=== PATIENT | female | born 1940 | race Caucasian/White ===

== ENCOUNTER 2016-11-06 18:48 | Inpatient (IN) | payer MEDICARE ==
[~2016-11-06] VITALS: Ht 170.2 cm; Wt 67.2 kg
[~2016-11-06 18:48] MED LIST: AMOXIL500 MG PO; ATORVASTATIN CA10 MG PO; BENZONATATE200 MG PO; CEFDINIR300 M1 PO; DIOVAN HCT 1601 EACH PO; DOXYCYCLINE HY100 MG PO; HOMATROPINE PO; HYD PO; IBU-8800 MG PO; LEVOTHYROXINE0.05 M2 PO; TYLENOL WITH CO1 TA1 PO
[2016-11-06 18:56] VITALS: BP 155/89
[2016-11-06] MEDS ORDERED: PROCHLORPERAZIN10 MG PO (19:11)
[2016-11-06] MEDS ORDERED: AMOXICILLIN AND1 TA2 PO (19:11)
[2016-11-06] MEDS ORDERED: PREDNISONE 20MG20 MG PO (19:12)
[2016-11-06] MEDS ORDERED: FAMOTIDINE 20MG20 MG PO (19:12)
[2016-11-06] MEDS ORDERED: ATORVASTATIN CA10 M1 PO (19:13)
[2016-11-06] MEDS ORDERED: MORPHINE SULFAT15 M3 PO (19:14)
[2016-11-06] MEDS ORDERED: PAROXETINE HCL20 MG PO (19:15)
[2016-11-06] MEDS ORDERED: LOPRESSOR 25MG.25 MG PO (19:16)
[2016-11-06 19:34] LABS: LYMPH # 0.9 K/mm3 (0.7-4.5); LYMPH % 6.9 % (10-50.0)
--- NOTE | 2016-11-06 19:36 | Emergency Room Report ---
History of Present Illness Time Seen by 1850 Presenting Problem in Triage Pt arrived:Wheelchair Presenting Problem:C/O COUGHING AND SHORTNESS OF BREATH, REPORTS CHILLS SINCE LAST NIGHT. 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 DISCHARGED APPROX 2 WEEKS GOT ON MORPHINE. Onset of symptoms date/time:11/05/16/ or onset unknown for:MEDICAL HX UNKNOWN Treatment Prior to Arrival: UNDER TREATMENT WITH TRAV PHOTOGRAPHIC SPECIALIST Provided by: PHYSICIAN Sepsis Risk Assessment: Temp: 98.5 B/P: 155/89 MAP: 111 Pulse: 106 Resp: 28 Recent fever? N Clinical Suspician of Infection? N Mental Status: 1 - Regular (Normal Baseline) Sepsis Risk:Possible Sepsis Risk Have you (or family members/close friends) recently traveled outside the [place]? N If Yes, where/when: Have you had exposure to infectious disease within the past month? N TB? Other? Specify: Comment History obtained from patient, granddaughter, and niece. Patient has a nonproductive cough and shortness of breath since yesterday evening. She has felt hot and cold, but temperature taken at home was between 97 and 98. She has had wheezing. She has used albuterol nebulizers and inhalers at home without much improvement. She has some swelling of legs intermittently, not as bad today as typically. She has some bilateral back pain when she coughs. She has a history of B cell lymphoma, recently diagnosed. She has had radiation treatment and is getting chemotherapy. She has a PICC line in place. She is seen at the [facility]. Dr. Tejeda is her primary care doctor. Home Medications Reported Medications HYDROCODONE W/ HOMATROPINE (Hydrocod-Homatrop 5-1.5 MG Tab) 1 TAB PO Q4HP PRN COUGH #45 Benzonatate 100 MG PO TID #30 Levothyroxine Sodium 0.05 MG PO DAILY #90 Valsartan/Hydrochlorothiazide (Diovan Hct 160-12.5 MG Tab) 1 EACH PO DAILY ATORVASTATIN CALCIUM (ATORVASTATIN 10MG) 10 MG PO QHS AMOXICILLIN/POTASSIUM CLAV (Amox Tr-K Clv 875-125 MG Tab) 1 TAB PO BID #14 Prochlorperazine Maleate 5 MG PO QID #120 Prednisone (Prednisone 20MG) 20 MG PO BID #20 Famotidine (Famotidine 20MG) 20 MG PO BID #60 Atorvastatin Calcium 10 MG PO DAILY #30 MORPHINE SULFATE SR/ER (Morphine Sulfate ER) 15 MG PO BID #20 PAROXETINE HCL (Paroxetine Hcl) 20 MG NG DAILY #30 Metoprolol Tartrate (Lopressor) 12.5 MG PO BID #30 (Ren Arauz MD) ALLERGIES Coded Allergies: alprazolam (From XANAX) (Intermediate, ADVERSE 11/06/16) tetanus and diphtheria toxoids (Mild, 08/17/16) Iodinated Contrast Media - Oral and (08/25/16) (Nora Villanueva MD) History Medical History General CAD? No Angina: No [place]: No Hypertension? Yes Hyperlipidemia? Yes CHF? No DVT? No PE? No COPD? No Asthma? No Anemia? No GERD? No Gastric ulcers? No GI Bleed? No Hernia? No Thyroid Problems? Yes Hypothyroidism? Yes CVA? No Seizures? No Diabetes? No Renal Insuffiency? No End Stage Renal Disease? No UTI? No Stones? No GB Disease: No Nephritic Syndrome? No Asplenia? No Hepatitis? No Sickle Cell Disease? No Arthritis? No Migraines? No Cataracts? No Glaucoma? No MRSA? No HIV? No TB? No Anxiety? No Depression? No Cancer? Yes Site: UTERINE, LYMPHOMA More? No Immunization Hx DT/Tetanus NEVER Surgical Hx Previous Surgery?Y Hysterect Breast bx BONE SPURS FROM NECK PICC LINE Social History Smoking Hx Smoker: Former Smoker Tobacco: Yes Type Cigarettes Alcohol Alcohol: No (Ren Arauz MD) Social History Drugs none (Nora Villanueva MD) Review of Systems All Other Systems Reviewed and Negative Constitutional chills (hot and cold feeling) ENT nose discharge, throat pain. Respiratory cough, shortness of breath, wheezing Cardiovascular chest pain (bilat back pain with cough) Gastrointestinal denies abdominal pain, denies diarrhea, denies nausea, denies vomiting Genitourinary denies: dysuria. (Ren Arauz MD) Physical Exam Vital Signs Vital Signs Date Time Temp Pulse Resp B/P Pulse O2 O2 Flow FiO2 Ox Delivery Rate 11/06 2048 100 22 147/86 97 2 11/06 2040 22 11/06 1945 100 28 149/89 97 2 05/30 1856 98.5 106 28 155/89 93 General Appearance appears chronically ill Eye Exam - bilateral eye normal exam, bilateral eye PERRL, bilateral eye EOMI Ear, Nose, Throat weak voice Neck normal inspection, non-tender, supple, full range of motion Respiratory Status Yes: trachea midline, chest symmetrical, non productive cough. No: respiratory distress. Lung Sounds bilateral: rhonchi. Cardiovascular normal exam, regular rate/rhythm, no peripheral edema, no gallop, no JVD, no murmur, no rub, normal peripheral pulses Peripheral Pulses Pulses normal Yes Gastrointestinal normal bowel sounds, normal exam, non tender, soft, no organomegaly Extremities non-tender, normal range of motion, normal inspection, swelling (1+ pitting edema bilateral) Neurologic alert, normal exam, oriented x 3 Mental status normal mood/affect Skin intact, warm/dry, pallor (Davonte COOMBS, Ren) Medical Decision Making LABS/Meds/Orders Pt receiving controlled substance in ED? No Results/Orders Laboratory Tests 11/06/161919: Lactic Acid 2.4 H 11/06/161919: Sodium 136, Potassium 3.4 L, Chloride 101, Carbon Dioxide 28, BUN 13, Creatinine 0.8, Estimated Creat Clear 55, Estimated GFR (MDRD) 69, Glucose 122 H, Calcium 8.2 L, Total Bilirubin 0.7, AST 16, ALT 24, Alkaline Phosphatase 118 H, Total Protein 5.1 L, Albumin 2.5 L, Globulin 2.6, Albumin/Globulin Ratio 1.0 L, WBC 12.9 H, RBC 3.02 L, Hgb 9.4 L, Hct 28.1 L, MCV 92.9, RDW 19.4 H , Plt Count 195, MPV 5.9 L, Gran % 92.3 H, Gran # 12.0 H, Total Counted 100, Lymphocytes % 6.9 L, Monocytes % 0.7 L, Eosinophils % 0.1, Basophils % 0.1, Neutrophils 90 H, Lymphocytes (Manual) 9 L, Lymphocytes # 0.9, Monocytes ( Manual) 1 L, Monocytes # 0.1, Eosinophils # 0.0, Basophils # 0.0, Hypersegmented Polys 1+, Platelet Estimate NORMAL, Hypochromasia 3+, Poikilocytosis 2+, Anisocytosis 2+, PUBS MCHC 33.1, MCH 30.8 Current Medication Orders Sig/Alisia Start time Last Medication Dose Route Stop Time Status Admin Sodium Chloride 250 ML .STK-MED ONE 11/06 2053 DC IV Azithromycin 0 .STK-MED ONE 11/06 2052 DC IV Sodium Chloride 50 ML .STK-MED ONE 11/06 2052 DC IV Ceftriaxone Sodium 0 .STK-MED ONE 11/07 2051 DC .ROUTE Azithromycin 500 MG ONCE ONE 11/06 2044 AC 11/06 Sodium Chloride 250 ML IV 11/06 Ceftriaxone Sodium 1 GM ONCE ONE 11/06 2044 DC 11/06 Sodium Chloride 50 ML IV 11/06 Morphine Sulfate 4 MG ONCE ONE 11/06 2044 DC 11/06 IV 11/06 Ondansetron HCl 4 MG ONCE ONE 11/06 2044 DC 11/06 IV 11/06 Morphine Sulfate 0 .STK-MED ONE 11/06 2040 DC .ROUTE Ondansetron HCl 0 .STK-MED ONE 11/06 2040 DC .ROUTE Albuterol/Ipratropium 0 .STK-MED ONE 11/06 1937 DC INH Albuterol/Ipratropium 3 ML ONCE ONE 11/06 1929 DC 11/06 INH 11/06 Sodium Chloride 10 ML PRN PRN 11/06 1929 AC IV 11/07 1916 Orders Procedure Date/time Status Decision to admit 11/06 2046 Active LACTIC ACID FOLLOW UP 11/06 1946 Active RT Aerosol Treatment, Provide 11/06 1929 Active RT REQUEST DUONEB 11/06 1928 Active DIFFERENTIAL-WBC 11/07 1919 Complete OXYGEN REQUEST 11/06 1917 Active IV SALINE LOCK 11/06 1917 Active CULTURE, BLOOD 11/06 1917 Active LACTIC ACID 11/06 1917 Complete CBC WITH AUTO DIFF 11/06 1917 Complete CHEM 12 PROFILE 11/06 1917 Complete Progress - 8:00 PM: At shift change, I have discussed the patient with Dr. Villanueva, who will assume care of the patient at this time. I have discussed all clinical information including history, physical and diagnostic study results. Preliminary diagnoses based on information available at this point have been recorded by me. Controlled substance administration and critical care statement are also preliminary, as of the time of handoff. (Davonte COOMBS, Ren) Departure Departure Disposition Still a Patient Clinical Impression Primary Impression: Pneumonia Qualifiers: Pneumonia type: due to unspecified organism Laterality: left Lung location: unspecified part of lung Qualified Code: J18.9 - Pneumonia, unspecified organism Condition STABLE ED Critical Care Critical Care No (Ren Arauz MD) Departure Time of Disposition 2041 Referrals Boaz Tejeda MD (Family) discussed with dr banda (Nora Villanueva MD) at 2012 at 2135
[2016-11-06 19:39] LABS: HEMOGLOBIN 9.4 g/dL (12.2-16.2)
[2016-11-06 20:20] LABS: NEUTROPHILS 90 % (42-76)
--- NOTE | 2016-11-06 21:09 | RADIOLOGY REPORT PS360 ---
CHEST(2 VIEWS-NOT PORTABLE) HISTORY: C/O SHORTNESS OF BREATH ORDERING PHYSICIAN: Ren Arauz MD PATIENT AGE: 76 years COMPARISON: 08/21/2016 FINDINGS: There is normal heart size. Patient has a known mediastinal mass. Stents are present within the mainstem bronchi. A sternotomy is prominent. Opacification is present involving the left perihilar region consistent with underlying lung volume loss. There are small bilateral pleural effusions. There is thickening of the major fissure seen on the lateral view probably on the left. Right upper extremity PICC line is present with the tip in region of SVC. IMPRESSION: 1. Persistent widening of the mediastinum and prominence of the marquis consistent with mediastinal/hilar mass. 2. New consolidation/volume loss in the left perihilar region. 3. Small bilateral effusions
--- NOTE | 2016-11-06 21:59 | PHARMACY CLINIC NOTE ---
Patient Demographics Patient Demographics Admission date: 11/06/16 Date: 11/06/16 Time: 2158 Allergies Coded Allergies: alprazolam (From XANAX) (Intermediate, ADVERSE 11/06/16) tetanus and diphtheria toxoids (Mild, 08/17/16) Iodinated Contrast Media - Oral and (08/25/16) HEIGHT- FT: 5 IN: 7.00 K.328 VTE General Information Labs: Laboratory Tests 11/07 1919 Hematology Hgb (12.2 - 16.2 g/dL) 9.4 L Hct (37.0 - 47.0 %) 28.1 L Plt Count (142 - 424 K/mm3) 195 Disclaimer The following section includes nursing documentation that has been pulled in for pharmacy review. VTE prophylaxis NQF [id number] VTE prophylaxis ordered? Yes Type of prophylaxis/treatment: LORRI at 4807
[2016-11-06 22:30] VITALS: BP 166/77
[2016-11-06 22:40] VITALS: BP 154/70
[2016-11-06] MEDS ORDERED: DOCUSATE SODIU100 MG PO (23:03)
[2016-11-06] MEDS ORDERED: MAG-OX 400MG T400 MG PO (23:05)
[2016-11-06] MEDS ORDERED: [UNRECOGNIZED DRUG - OTHER] (23:08)
[2016-11-06 23:41] VITALS: BP 142/56
[2016-11-07] VITALS (8 sets, daily range): BP systolic 145–182; BP diastolic 62–78
[2016-11-07 06:33] LABS: LYMPH # 0.5 K/mm3 (0.7-4.5); LYMPH % 7.6 % (10-50.0)
[2016-11-07 06:41] LABS: HEMOGLOBIN 7.9 g/dL (12.2-16.2)
[2016-11-07] MEDS ORDERED: FAMOTIDINE 20MG20 MG PO ×2 (08:10→09:35)
[2016-11-07] MEDS ORDERED: IPRATROPIUM BROM3 M1 IH (08:45)
[2016-11-07] MEDS ORDERED: VENTOLIN H0.09 MG/AC IH (09:09)
[2016-11-07] MEDS ORDERED: ONDANSETRON HYDR8 M1 PO (09:11)
[2016-11-07] MEDS ORDERED: VALSARTAN AND H1 TA1 PO (09:20)
[2016-11-07] MEDS ORDERED: LIDOCAINE 2% V100 M2 PO (09:22)
[2016-11-07] MEDS ORDERED: MELATIN1 TAB PO (09:24)
[2016-11-07] MEDS ORDERED: NEUPOGEN300 MCG/01 IJ (09:25)
[2016-11-07] MEDS ORDERED: MORPHINE SULFAT15 M2 PO (09:25)
[2016-11-07] MEDS ORDERED: MIRALAX(PO17 GM/1 PA PO (09:26)
[2016-11-07] MEDS ORDERED: PANTOPRAZOLE SO40 MG PO (09:26)
[2016-11-07] MEDS ORDERED: THERAPEUTIC-M1 EAC1 PO (09:27)
--- NOTE | 2016-11-07 09:31 | HISTORY AND PHYSICAL REPORT ---
History and Physical ([facility]CA) Date of admission: 11/06/16 Chief complaint: cough History: History of Present Illness: Ms Gutierrez is a 76 year old female with a history of mediastinal diffuse large B cell lymphoma , HTN, hypothyroidism and previous HCAP who did well after her chemo lst week untill Saturday PM when she began coughing. She continue with a mostly nonproductive cough all day yesterday with SOB. She also experienced chills and diaphoresis. She presented to the ER for evaluation. She was felt to have a pneumonia and was admitted. This AM she continues to cough. The current meds have not helped very much. She has no appetite and has to sit up to breath and cough. She has bilateral shoulder pain. she denies CP. Past Medical History: Medical History: CAD? No Angina: No [place]: No Hypertension? Yes Hyperlipidemia? Yes CHF? No DVT? Yes PE? No COPD? No Asthma? No Anemia? No GERD? No Gastric ulcers? No GI Bleed? No Hernia? No Thyroid Problems? Yes Hypothyroidism? Yes CVA? No Seizures? No Diabetes? No Renal Insuffiency? No UTI? No Stones? No GB Disease: No Nephritic Syndrome? No Asplenia? No Hepatitis? No Sickle Cell Disease? No Arthritis? No Migraines? No Cataracts? No Glaucoma? No MRSA? No HIV? No TB? No Anxiety? Yes Depression? No Cancer? Yes Site: UTERINE, LYMPHOMA More? No Surgical history: Previous Surgery?Y Hysterect Breast bx BONE SPURS FROM NECK PICC LINE Medications: Reported Medications Benzonatate 100 MG PO TID #30 CAPSULE ONDANSETRON HCL (Ondansetron Hydrochloride) 4 MG PO Q8HP #42 TAB POLYETHYLENE GLYCOL (Miralax) 17 GM PO DAILY Multivits,Ca,Minerals/Iron/FA (Therapeutic-M Caplet) 1 EACH PO DAILY MORPHINE SULF IMMED.RELEASE (Morphine Sulfate) 15 MG PO Q4HP PRN pain Filgrastim (Neupogen) 300 MCG IJ QOD PAROXETINE HCL (Paroxetine Hcl) 20 MG PO DAILY #30 TAB Prochlorperazine Maleate 10 MG PO Q6HP PRN NAUSEA/VOMITING Docusate Sodium 100 MG PO BID ALBUTEROL-IPRATROPIUM (Iprat-Albut 0.5-3(2.5) MG/3 Ml) 3 ML IH Q4HP PRN SHORTNESS OF AIR #540 ALBUTEROL (Ventolin Hfa) 2 PUFF IH QID VALSARTAN/HYDROCHLOROTHIAZIDE (Valsartan-Hctz 160-12.5 MG Tab) 1 TAB PO DAILY Lidocaine HCl (Lidocaine 2% Viscous; 100ML) 5 ML PO QIDP PRN MUCOSITIS MELATONIN (Melatin) 3 MG PO QHSP PRN SLEEP Pantoprazole Sodium (Pantoprazole 40MG) 40 MG PO DAILY AMOXICILLIN/POTASSIUM CLAV (Amox Tr-K Clv 875-125 MG Tab) 1 TAB PO BID #14 TAB Acetaminophen 325 MG PO Q6HP PRN PAIN DEXTROMETHORPHAN-GG (Guaifenesin Dm Syrup) 15 ML PO QIDP PRN COUGH Diphenhydramine HCl (Allergy Medicine) 15 ML PO QIDP PRN MUCOSITIS SODIUM CHLORIDE FOR INHALATION (Sodium Chloride) 3 ML IH Q2H Levothyroxine Sodium 0.05 MG PO DAILY #90 Atorvastatin Calcium 10 MG PO DAILY #30 MORPHINE SULFATE SR/ER (Morphine Sulfate ER) 15 MG PO BID #20 Metoprolol Tartrate (Lopressor) 12.5 MG PO BID #30 Allergies: Coded Allergies: alprazolam (From XANAX) (Intermediate, ADVERSE 11/06/16) tetanus and diphtheria toxoids (Mild, 08/17/16) Iodinated Contrast Media - Oral and (08/25/16) ibuprofen (STATED IT INTERACTS WITH CHEMO 11/07/16) acetaminophen (From TYLENOL) (INTERACT WITH CHEMO 11/07/16) Family History: Family history: Negative for: DM. Additional family history: father with COPD; brother had Alzheimer's Social History: Smoking Hx Tobacco: Yes Smoker: Former Smoker Type: Cigarettes Packs/day: N/A Are you exposed to second hand No Alcohol: Alcohol: No Hx of Drug Use: Drug Use? No Review of Systems: Constitutional Positive for: chills. ENT Positive for: ear ache. No: sore throat. Cardiovascular No: chest pain, edema, palpitations. Respiratory Positive for: shortness of air, non-productive. GI Positive for: constipation, nausea. No: GERD, abdominal pain, diarrhea, hematemeis, melena, vomitting. (female) No: hematuria. Neurological No: confusion, headache, seizure, syncope. Musculoskeletal Positive for: joint pain (SHOULDERS). Physical Exam: Vital signs: 1ST Vital Signs Result Date Time Pulse Ox 93 11/07 1855 B/P 155/89 11/07 1855 Temp 98.5 11/07 1855 Pulse 106 11/07 1855 Resp 28 11/07 1855 O2 Flow Rate 2 11/06 1945 O2 Delivery OXYGEN 11/06 2229 Exam: General appearance: alert, APPEARS NOT TO FEEL WELL Eyes: anicteric, pupils reactive to light ENT: mucous membranes moist, tympanic membranes normal Neck: no carotid bruit, supple, lymphadenopathy (absent), thyroid (normal) Cardiovascular: regular rate & rhythm Respiratory: CRACKLES ON THE LEFT ABD: non-distended, soft, no tenderness, bowel sounds present Extremities: no peripheral edema Neuro: alert, oriented, speech clear Lab data: Labs: Laboratory Tests 11/07/16 0950: Sodium 138, Potassium 3.1 L, Chloride 106, Carbon Dioxide 28, BUN 8, Creatinine 0.6, Estimated Creat Clear 84, Estimated GFR (MDRD) 97, Glucose 86, Calcium 7.1 L, WBC 6.7, RBC 2.51 L, Hgb 7.9 *L, Hct 23.9 *L, MCV 95.3, RDW 19.3 H, Plt Count 135 L, MPV 5.9 L, Gran % 90.7 H, Gran # 6.1, Lymphocytes % 7.6 L, Monocytes % 1.1 L, Eosinophils % 0.2, Basophils % 0.5, Lymphocytes # 0.5 L, Monocytes # 0.1, Eosinophils # 0.0, Basophils # 0.0, PUBS MCHC 33.2, MCH 31.6 H 11/06/16 2330: Lactic Acid 0.5 11/06/161919: Lactic Acid 2.4 H 11/06/161919: Sodium 136, Potassium 3.4 L, Chloride 101, Carbon Dioxide 28, BUN 13, Creatinine 0.8, Estimated Creat Clear 55, Estimated GFR (MDRD) 69, Glucose 122 H, Calcium 8.2 L, Total Bilirubin 0.7, AST 16, ALT 24, Alkaline Phosphatase 118 H, Total Protein 5.1 L, Albumin 2.5 L, Globulin 2.6, Albumin/Globulin Ratio 1.0 L, WBC 12.9 H, RBC 3.02 L, Hgb 9.4 L, Hct 28.1 L, MCV 92.9, RDW 19.4 H , Plt Count 195, MPV 5.9 L, Gran % 92.3 H, Gran # 12.0 H, Total Counted 100, Lymphocytes % 6.9 L, Monocytes % 0.7 L, Eosinophils % 0.1, Basophils % 0.1, Neutrophils 90 H, Lymphocytes (Manual) 9 L, Lymphocytes # 0.9, Monocytes ( Manual) 1 L, Monocytes # 0.1, Eosinophils # 0.0, Basophils # 0.0, Hypersegmented Polys 1+, Platelet Estimate NORMAL, Hypochromasia 3+, Poikilocytosis 2+, Anisocytosis 2+, PUBS MCHC 33.1, MCH 30.8 Microbiology 11/07 1919 BLOOD: Anaerobic Blood Culture - RECD 11/07 1919 BLOOD: Aerobic Blood Culture - RECD 11/07 1919 BLOOD: Anaerobic Blood Culture - RECD 11/07 1919 BLOOD: Aerobic Blood Culture - RECD Radiology results: Results: CXR 11/06/16 IMPRESSION: 1. Persistent widening of the mediastinum and prominence of the marquis consistent with mediastinal/hilar mass. 2. New consolidation/volume loss in the left perihilar region. 3. Small bilateral effusions Diagnosis(es): 1. Pneumonia 2. Large B-cell lymphoma 3. Hypothyroidism 4. HTN (hypertension) Plan: ABX; DUONEBS; COUGH AND PAIN MANAGEMENT; MEDS VERIFIED BY PHARMACY (Elvira Pinon APRN) Date of admission: 11/06/16 Diagnosis(es): 1. Pneumonia 2. Large B-cell lymphoma 3. Hypothyroidism 4. HTN (hypertension) Plan: Pt seen and examined this AM. Concur with assessment and plan as outlined above. (Jam Izquierdo MD) at 1311 at 2042
[2016-11-07] MEDS ORDERED: AMOXICILLIN AND1 TA2 PO (09:34)
[2016-11-07] MEDS ORDERED: ACETAMINOPHEN325 M1 PO (09:53)
[2016-11-07] MEDS ORDERED: ROBITUSSIN DM 105 ML PO (09:58)
[2016-11-07] MEDS ORDERED: ALLERGY ME12.5 MG/5 PO (09:59)
[2016-11-07] MEDS ORDERED: MELATONIN3 MG PO (10:02)
[2016-11-07] MEDS ORDERED: SODIUM CHLORIDE3 ML IH (10:12)
[2016-11-07 14:49] LABS: HEMOGLOBIN 8.4 g/dL (12.2-16.2); LYMPH # 0.4 K/mm3 (0.7-4.5); LYMPH % 6.9 % (10-50.0)
[2016-11-08 03:52] VITALS: BP 155/72
[2016-11-08 08:09] VITALS: BP 142/76
--- NOTE | 2016-11-08 08:15 | ACUTE CARE PROGRESS NOTE (QUA) ---
See Addendum Progress Notes Subjective Date 11/08/16 Time 0813 Note Pt states she still feels awful. Still coughing with only minimal sputum production. Still wheezing and SOA. Has some pain in her back. Not hungry this am. Objective Findings Last VS-Temp:97.7 B/P:142/76 Pulse:93 Resp:20 SaO2:99 OXYGEN Last weight lbs:151 oz:2 K.550 Method:Bed Scales Laboratory Tests 11/07/16 0950: WBC 5.6, RBC 2.70 L, Hgb 8.4 L, Hct 25.6 L, MCV 95.1, RDW 19.4 H, Plt Count 136 L, MPV 6.3 L, Gran % 91.6 H, Gran # 5.2, Lymphocytes % 6.9 L, Monocytes % 0.7 L, Eosinophils % 0.3, Basophils % 0.5, Lymphocytes # 0.4 L, Monocytes # 0.0 L, Eosinophils # 0.0, Basophils # 0.0, PUBS MCHC 32.9, MCH 31.3 H 11/07/16 0950: Sodium 138, Potassium 3.1 L, Chloride 106, Carbon Dioxide 28, BUN 8, Creatinine 0.6, Estimated Creat Clear 84, Estimated GFR (MDRD) 97, Glucose 86, Calcium 7.1 L, WBC 6.7, RBC 2.51 L, Hgb 7.9 *L, Hct 23.9 *L, MCV 95.3, RDW 19.3 H, Plt Count 135 L, MPV 5.9 L, Gran % 90.7 H, Gran # 6.1, Lymphocytes % 7.6 L, Monocytes % 1.1 L, Eosinophils % 0.2, Basophils % 0.5, Lymphocytes # 0.5 L, Monocytes # 0.1, Eosinophils # 0.0, Basophils # 0.0, PUBS MCHC 33.2, MCH 31.6 H Microbiology 11/07 1204 SPUTUM: Sputum Culture - RES 11/07 1204 SPUTUM: Gram Stain - RES Exam General appearance: alert, awake, does not appear to feel well Cardiovascular: regular rate & rhythm Respiratory: bilateral rhonchi, bibasilar rales ABD: non-distended, normal bowel sounds, no rebound, soft, no tenderness, no guarding Extremities: no peripheral edema Assessment/Plan Problem List 1. Pneumonia 2. Large B-cell lymphoma 3. Hypothyroidism 4. HTN (hypertension) Plan: Awaiting labs and sputum cx. Will get another CXR today. This inpt stay is expected to cross 2 MNs from start of care Yes (Fariha Yoo) Subjective Date 11/08/16 Time 0858 Assessment/Plan Problem List 1. Pneumonia 2. Large B-cell lymphoma 3. Hypothyroidism 4. HTN (hypertension) Plan: Cough is a littel better. Still very weak and has no appetite. Awaiting AM labs and will repeat CXR today. Encouraged her to be OOB. (Jam Izquierdo MD) at 0815 at 0859
[2016-11-08 10:00] VITALS: BP 142/76
[2016-11-08 10:48] LABS: LYMPH # 0.2 K/mm3 (0.7-4.5); LYMPH % 40.6 % (10-50.0)
[2016-11-08 11:59] LABS: HEMOGLOBIN 7.9 g/dL (12.2-16.2)
--- NOTE | 2016-11-08 15:38 | RADIOLOGY REPORT PS360 ---
CHEST-PORTABLE HISTORY: Shortness of breath, labored breathing f/u pneumonia ORDERING PHYSICIAN: Jam Izquierdo MD PATIENT AGE: 76 years COMPARISON: 11/06/2016 FINDINGS: Continued opacification is present in the left perihilar region consistent with volume loss/consolidation within the lingula is slightly more dense on today's exam. Right upper extremity PICC line once again noted unchanged. Bilateral mainstem bronchi stents are present as before. Patient has an had a known mediastinal mass. Bone plate noted over the lower cervical spine. IMPRESSION: Slight increased consolidation/volume loss in left perihilar region with other findings as described above
[2016-11-08 16:29] LABS: NEUTROPHILS 43 % (42-76)
[2016-11-08 16:30] VITALS: BP 137/70
[2016-11-08 19:33] VITALS: BP 124/58
[2016-11-09] VITALS (8 sets, daily range): BP systolic 115–139; BP diastolic 58–72
[2016-11-09 07:39] LABS: LYMPH # 0.3 K/mm3 (0.7-4.5); LYMPH % 60.9 % (10-50.0)
[2016-11-09 07:42] LABS: HEMOGLOBIN 7.7 g/dL (12.2-16.2)
--- NOTE | 2016-11-09 08:14 | ACUTE CARE PROGRESS NOTE (QUA) ---
Progress Notes Subjective Date 11/09/16 Time 0809 Note Patient states she feels about the same today. She is still coughing and short of breath. Her pain in her chest has improved. She was able to get up and sit in a chair some yesterday. Objective Findings Last VS-Temp:98.1 B/P:119/62 Pulse:93 Resp:20 SaO2:96 OXYGEN Last weight lbs:151 oz:2 K.550 Method:Bed Scales Laboratory Tests 11/09/16 0720: Sodium 133 L, Potassium 3.3 L, Chloride 98, Carbon Dioxide 32, BUN 7, Creatinine 0.8, Estimated Creat Clear 63, Estimated GFR (MDRD) 69, Glucose 114 H, Calcium 7.8 L, WBC 0.5 *L, RBC 2.45 L, Hgb 7.7 *L, Hct 23.1 *L, MCV 94.2, RDW 18.5 H, Plt Count 84 L, MPV 6.5 L, Gran % 26.6 L, Gran # 0.1 *L, Lymphocytes % 60.9 H, Monocytes % 8.1, Eosinophils % 2.0, Basophils % 2.5 H, Lymphocytes # 0.3 L, Monocytes # 0.0 L, Eosinophils # 0.0, Basophils # 0.0, PUBS MCHC 33.4, MCH 31.5 H, Gentamicin Trough 1.7 11/09/16 0009: Gentamicin Trough 4.7 *H 11/08/16 2202: Creatine Kinase 16 L, CK-MB (CK-2) Rel Index 5.0 H, CK and CKMB Interp 0.8, Troponin I < 0.02 11/08/16 1020: Sodium 132 L, Potassium 3.3 L, Chloride 99, Carbon Dioxide 30, BUN 8, Creatinine 0.6, Estimated Creat Clear 84, Estimated GFR (MDRD) 97, Glucose 125 H, Calcium 8.0 L, WBC 0.5 *L, RBC 2.59 L, Hgb 7.9 *L, Hct 24.6 L, MCV 94.8, RDW 18.8 H, Plt Count 103 L, MPV 6.3 L, Gran % 52.4, Gran # 0.3 *L, Total Counted 40, Lymphocytes % 40.6, Monocytes % 3.2, Eosinophils % 2.3, Basophils % 1.6, Neutrophils 43, Lymphocytes (Manual) 45, Lymphocytes # 0.2 L, Monocytes ( Manual) 10 H, Monocytes # 0.0 L, Eosinophils # 0.0, Eosinophils # (Manual) 3, Basophils # 0.0, Platelet Estimate MOD INCREASE, Anisocytosis 1+, PUBS MCHC 32.4 , MCH 30.7 CXR - Slight increased consolidation/volume loss in left perihilar region with other findings as described above Exam General appearance: alert, awake, does not appear to feel well Cardiovascular: regular rate & rhythm Respiratory: inspiratory and expiratory wheezing and rhonchi bilaterally ABD: non-distended, normal bowel sounds, no rebound, soft, no tenderness, no guarding Extremities: no peripheral edema Assessment/Plan Problem List 1. Pneumonia 2. Large B-cell lymphoma 3. Hypothyroidism 4. HTN (hypertension) 5. Hypokalemia 6. Constipation Plan: Patient's pneumonia appeared worse on recent CXR. ABX changes were made. Her WBC is low, therefore she has been placed in reverse isolation. Her potassium is still low, will increase replacement dose. She is constipated today. Will start on a stool softner. This inpt stay is expected to cross 2 MNs from start of care Yes (Fariha Yoo) Subjective Date 11/09/16 Assessment/Plan Problem List 1. Pneumonia 2. Chemotherapy induced neutropenia 3. Large B-cell lymphoma 4. Hypothyroidism 5. HTN (hypertension) 6. Hypokalemia 7. Constipation Plan: Pt seen and examined. Appears weak and pale but answers questions appropriately. Rested some last night after a bout of chest pain. Enzymes and EKG were unremarkable. Mouth is sore which is limiting her diet some. Antibiotic regimen escalated due to neutropenia while awaiting cultures. (Jam Izquierdo MD) at 0813 at 1851
--- NOTE | 2016-11-09 08:58 | CONSULT NOTE ---
Pharmacokinetic Consult Date of consult: 11/09/16 Time of consult: 824 Referring provider: DR. SWANSON Reason for consult: VANCOMYCIN AND GENTAMICIN DOSING/LEVELS Allergies: Coded Allergies: alprazolam (From XANAX) (Intermediate, ADVERSE 11/06/16) tetanus and diphtheria toxoids (Mild, 08/17/16) Iodinated Contrast Media - Oral and (08/25/16) ibuprofen (STATED IT INTERACTS WITH CHEMO 11/07/16) acetaminophen (From TYLENOL) (INTERACT WITH CHEMO 11/07/16) Home Medications: Reported Medications Benzonatate 100 MG PO TID #30 CAPSULE ONDANSETRON HCL (Ondansetron Hydrochloride) 4 MG PO Q8HP #42 TAB POLYETHYLENE GLYCOL (Miralax) 17 GM PO DAILY Multivits,Ca,Minerals/Iron/FA (Therapeutic-M Caplet) 1 EACH PO DAILY MORPHINE SULF IMMED.RELEASE (Morphine Sulfate) 15 MG PO Q4HP PRN pain Filgrastim (Neupogen) 300 MCG IJ QOD PAROXETINE HCL (Paroxetine Hcl) 20 MG PO DAILY #30 TAB Prochlorperazine Maleate 10 MG PO Q6HP PRN NAUSEA/VOMITING Docusate Sodium 100 MG PO BID ALBUTEROL-IPRATROPIUM (Iprat-Albut 0.5-3(2.5) MG/3 Ml) 3 ML IH Q4HP PRN SHORTNESS OF AIR #540 ALBUTEROL (Ventolin Hfa) 2 PUFF IH QID VALSARTAN/HYDROCHLOROTHIAZIDE (Valsartan-Hctz 160-12.5 MG Tab) 1 TAB PO DAILY Lidocaine HCl (Lidocaine 2% Viscous; 100ML) 5 ML PO QIDP PRN MUCOSITIS MELATONIN (Melatin) 3 MG PO QHSP PRN SLEEP Pantoprazole Sodium (Pantoprazole 40MG) 40 MG PO DAILY AMOXICILLIN/POTASSIUM CLAV (Amox Tr-K Clv 875-125 MG Tab) 1 TAB PO BID #14 TAB Acetaminophen 325 MG PO Q6HP PRN PAIN DEXTROMETHORPHAN-GG (Guaifenesin Dm Syrup) 15 ML PO QIDP PRN COUGH Diphenhydramine HCl (Allergy Medicine) 15 ML PO QIDP PRN MUCOSITIS SODIUM CHLORIDE FOR INHALATION (Sodium Chloride) 3 ML IH Q2H Levothyroxine Sodium 0.05 MG PO DAILY #90 Atorvastatin Calcium 10 MG PO DAILY #30 MORPHINE SULFATE SR/ER (Morphine Sulfate ER) 15 MG PO BID #20 Metoprolol Tartrate (Lopressor) 12.5 MG PO BID #30 Height (feet): 5 Height (inches): 7.00 Medical History: CAD? No Angina: No [place]: No Hypertension? Yes Hyperlipidemia? Yes CHF? No DVT? Yes PE? No COPD? No Asthma? No Anemia? No GERD? No Gastric ulcers? No GI Bleed? No Hernia? No Thyroid Problems? Yes Hypothyroidism? Yes CVA? No Seizures? No Diabetes? No Renal Insuffiency? No UTI? No Stones? No GB Disease: No Nephritic Syndrome? No Asplenia? No Hepatitis? No Sickle Cell Disease? No Arthritis? No Migraines? No Cataracts? No Glaucoma? No MRSA? No HIV? No TB? No Anxiety? Yes Depression? No Cancer? Yes Site: UTERINE, LYMPHOMA More? No Labs: Laboratory Tests 11/09/16 0720: Sodium 133 L, Potassium 3.3 L, Chloride 98, Carbon Dioxide 32, BUN 7, Creatinine 0.8, Estimated Creat Clear 63, Estimated GFR (MDRD) 69, Glucose 114 H, Calcium 7.8 L, WBC 0.5 *L, RBC 2.45 L, Hgb 7.7 *L, Hct 23.1 *L, MCV 94.2, RDW 18.5 H, Plt Count 84 L, MPV 6.5 L, Gran % 26.6 L, Gran # 0.1 *L, Lymphocytes % 60.9 H, Monocytes % 8.1, Eosinophils % 2.0, Basophils % 2.5 H, Lymphocytes # 0.3 L, Monocytes # 0.0 L, Eosinophils # 0.0, Basophils # 0.0, PUBS MCHC 33.4, MCH 31.5 H, Gentamicin Trough 1.7 11/09/16 0009: Gentamicin Trough 4.7 *H 11/08/16 2202: Creatine Kinase 16 L, CK-MB (CK-2) Rel Index 5.0 H, CK and CKMB Interp 0.8, Troponin I < 0.02 11/08/16 1020: Sodium 132 L, Potassium 3.3 L, Chloride 99, Carbon Dioxide 30, BUN 8, Creatinine 0.6, Estimated Creat Clear 84, Estimated GFR (MDRD) 97, Glucose 125 H, Calcium 8.0 L, WBC 0.5 *L, RBC 2.59 L, Hgb 7.9 *L, Hct 24.6 L, MCV 94.8, RDW 18.8 H, Plt Count 103 L, MPV 6.3 L, Gran % 52.4, Gran # 0.3 *L, Total Counted 40, Lymphocytes % 40.6, Monocytes % 3.2, Eosinophils % 2.3, Basophils % 1.6, Neutrophils 43, Lymphocytes (Manual) 45, Lymphocytes # 0.2 L, Monocytes ( Manual) 10 H, Monocytes # 0.0 L, Eosinophils # 0.0, Eosinophils # (Manual) 3, Basophils # 0.0, Platelet Estimate MOD INCREASE, Anisocytosis 1+, PUBS MCHC 32.4 , MCH 30.7 Problem List: 1. Pneumonia Plan: BASED ON PATIENT FACTORS, RECOMMEND VANCOMYCIN 1250 MG IV Q24H AND GENTAMICIN 240 MG IV Q24H. GENTAMICIN LEVELS AFTER 1ST DOSE LAST NIGHT: 5-HOUR POST INFUSION: 4.7 MCG/ML CALCULATED PEAK: 9.03 MCG/ML 12-HOUR POST INFUSION: 1.7 MCG/ML CALCULATED TROUGH: 0.30 MCG/ML BASED ON LEVELS AND PATIENT FACTORS, RECOMMEND INCREASING DOSE TO GENTAMICIN 400 MG IV Q24H. PHARMACY WILL CONTINUE TO MONITOR DAILY AND ADJUST APPROPRIATE. at 0857
[2016-11-10] VITALS (8 sets, daily range): BP systolic 116–139; BP diastolic 58–73
--- NOTE | 2016-11-10 08:19 | ACUTE CARE PROGRESS NOTE (QUA) ---
Progress Notes Subjective Date 11/10/16 Time 0816 Note Pt states she feels about the same today. Able to cough up more sputum. Still with SOA. Very weak. Denies pain. Objective Findings Last VS-Temp:98.6 B/P:127/64 Pulse:95 Resp:16 SaO2:91 ROOM AIR Last weight lbs:151 oz:2 K.550 Method:Bed Scales Exam General appearance: awake, very weak and has a hard time answering questions Cardiovascular: regular rate & rhythm Respiratory: wheezing and rhonchi bilaterally ABD: non-distended, normal bowel sounds, no rebound, soft, no tenderness, no guarding Extremities: no peripheral edema Reviewed: Sputum cx - positive for pseudomonas Assessment/Plan Problem List 1. Pseudomonas pneumonia 2. Chemotherapy induced neutropenia 3. Large B-cell lymphoma 4. Hypothyroidism 5. HTN (hypertension) 6. Hypokalemia 7. Constipation Plan: Patient's abx have been switched to levaquin. Will continue to monitor. Awaiting labs this am. This inpt stay is expected to cross 2 MNs from start of care Yes (Fariha Yoo) Assessment/Plan Problem List 1. Pseudomonas pneumonia 2. Chemotherapy induced neutropenia 3. Large B-cell lymphoma 4. Hypothyroidism 5. HTN (hypertension) 6. Hypokalemia 7. Constipation Plan: Pt seen and examined. SHe seems to be more alert in the afternoons. Still not eating well. As noted above, sputum cx is growing psuedomonas and antibiotic regimen changed to double coverage with Levaquin and Tobramycin. Encouraged her to be OOB some. (Jam Izquierdo MD) at 0819 at 1223
[2016-11-10 08:53] LABS: LYMPH # 0.3 K/mm3 (0.7-4.5); LYMPH % 39.4 % (10-50.0)
[2016-11-10 09:16] LABS: HEMOGLOBIN 7.4 g/dL (12.2-16.2)
[2016-11-10 10:13] LABS: NEUTROPHILS 16 % (42-76)
--- NOTE | 2016-11-10 11:00 | CONSULT NOTE ---
Pharmacokinetic Consult Date of consult: 11/10/16 Time of consult: 4066 Referring provider: DR. SWANSON Reason for consult: TOBRAMYCIN DOSING Allergies: Coded Allergies: alprazolam (From XANAX) (Intermediate, ADVERSE 11/06/16) tetanus and diphtheria toxoids (Mild, 08/17/16) Iodinated Contrast Media - Oral and (08/25/16) ibuprofen (STATED IT INTERACTS WITH CHEMO 11/07/16) acetaminophen (From TYLENOL) (INTERACT WITH CHEMO 11/07/16) Home Medications: Reported Medications Benzonatate 100 MG PO TID #30 CAPSULE ONDANSETRON HCL (Ondansetron Hydrochloride) 4 MG PO Q8HP #42 TAB POLYETHYLENE GLYCOL (Miralax) 17 GM PO DAILY Multivits,Ca,Minerals/Iron/FA (Therapeutic-M Caplet) 1 EACH PO DAILY MORPHINE SULF IMMED.RELEASE (Morphine Sulfate) 15 MG PO Q4HP PRN pain Filgrastim (Neupogen) 300 MCG IJ QOD PAROXETINE HCL (Paroxetine Hcl) 20 MG PO DAILY #30 TAB Prochlorperazine Maleate 10 MG PO Q6HP PRN NAUSEA/VOMITING Docusate Sodium 100 MG PO BID ALBUTEROL-IPRATROPIUM (Iprat-Albut 0.5-3(2.5) MG/3 Ml) 3 ML IH Q4HP PRN SHORTNESS OF AIR #540 ALBUTEROL (Ventolin Hfa) 2 PUFF IH QID VALSARTAN/HYDROCHLOROTHIAZIDE (Valsartan-Hctz 160-12.5 MG Tab) 1 TAB PO DAILY Lidocaine HCl (Lidocaine 2% Viscous; 100ML) 5 ML PO QIDP PRN MUCOSITIS MELATONIN (Melatin) 3 MG PO QHSP PRN SLEEP Pantoprazole Sodium (Pantoprazole 40MG) 40 MG PO DAILY AMOXICILLIN/POTASSIUM CLAV (Amox Tr-K Clv 875-125 MG Tab) 1 TAB PO BID #14 TAB Acetaminophen 325 MG PO Q6HP PRN PAIN DEXTROMETHORPHAN-GG (Guaifenesin Dm Syrup) 15 ML PO QIDP PRN COUGH Diphenhydramine HCl (Allergy Medicine) 15 ML PO QIDP PRN MUCOSITIS SODIUM CHLORIDE FOR INHALATION (Sodium Chloride) 3 ML IH Q2H Levothyroxine Sodium 0.05 MG PO DAILY #90 Atorvastatin Calcium 10 MG PO DAILY #30 MORPHINE SULFATE SR/ER (Morphine Sulfate ER) 15 MG PO BID #20 Metoprolol Tartrate (Lopressor) 12.5 MG PO BID #30 Height (feet): 5 Height (inches): 7.00 Medical History: CAD? No Angina: No [place]: No Hypertension? Yes Hyperlipidemia? Yes CHF? No DVT? Yes PE? No COPD? No Asthma? No Anemia? No GERD? No Gastric ulcers? No GI Bleed? No Hernia? No Thyroid Problems? Yes Hypothyroidism? Yes CVA? No Seizures? No Diabetes? No Renal Insuffiency? No UTI? No Stones? No GB Disease: No Nephritic Syndrome? No Asplenia? No Hepatitis? No Sickle Cell Disease? No Arthritis? No Migraines? No Cataracts? No Glaucoma? No MRSA? No HIV? No TB? No Anxiety? Yes Depression? No Cancer? Yes Site: UTERINE, LYMPHOMA More? No Labs: Laboratory Tests 11/10/16 0832: WBC 0.7 *L, RBC 2.36 L, Hgb 7.4 *L, Hct 22.0 *L, MCV 93.0, RDW 18.3 H, Plt Count 66 L, MPV 6.9 L, Gran % 38.7, Gran # 0.3 *L, Total Counted 25, Lymphocytes % 39.4, Monocytes % 18.3 H, Eosinophils % 1.9, Basophils % 1.7, Neutrophils 16 L, Band Neutrophils 4, Lymphocytes (Manual) 56 H, Lymphocytes # 0.3 L, Monocytes (Manual) 20 H, Monocytes # 0.1, Eosinophils # 0.0, Eosinophils # (Manual) 4 H, Basophils # 0.0, Platelet Estimate MARKED DECREASE, PUBS MCHC 33.5, MCH 31.2 Problem List: 1. Pseudomonas pneumonia Plan: BASED ON PATIENT'S FACTORS, RECOMMEND STARTING WITH TOBRAMYCIN 420 MG Q24H STARTING AT 1900 TONIGHT. PATIENT HAS BEEN RECEIVING GENTAMICIN 400 MG Q24H DOSED AT 1900. WILL OBTAIN TROUGH LEVEL OF GENTAMICIN PRIOR TO TOBRAMYCIN DOSE. GENTAMICIN DOSE WAS GIVEN LAST NIGHT. PHARMACY WILL FOLLOW DAILY AND ADJUST APPROPRIATE. ADRYAN BAPTISTE PHARMD at [phone]
[2016-11-11] VITALS (9 sets, daily range): BP systolic 145–169; BP diastolic 70–87
[2016-11-11 06:19] LABS: LYMPH # 0.7 K/mm3 (0.7-4.5)
[2016-11-11 06:21] LABS: HEMOGLOBIN 7.6 g/dL (12.2-16.2)
--- NOTE | 2016-11-11 08:51 | ACUTE CARE PROGRESS NOTE (QUA) ---
Progress Notes Subjective Date 11/11/16 Time 0844 Note Having some increased anxiety. Recieved Vistaril at about 2100 last night and rested fairly well. Cough seems to have improved some. Still not eating well. States she has no appetite. Objective Findings Laboratory Tests 11/11/16 0600: Sodium 129 L, Potassium 3.3 L, Chloride 95 L, Carbon Dioxide 27, BUN 5 L, Creatinine 0.7, Estimated Creat Clear 70, Estimated GFR (MDRD) 81, Glucose 80, Calcium 8.4 L, WBC 2.0 L, RBC 2.52 L, Hgb 7.6 *L, Hct 23.3 *L, MCV 92.4, RDW 18.6 H, Plt Count 66 L, MPV 6.7 L, Gran % 50.0, Gran # 1.0 L, Lymphocytes % 35.0, Monocytes % 13.5 H, Eosinophils % 1.1, Basophils % 0.5, Lymphocytes # 0.7 , Monocytes # 0.3, Eosinophils # 0.0, Basophils # 0.0, PUBS MCHC 32.8, MCH 30.3 11/10/16 1840: Gentamicin Trough 2.6 *H Last VS-Temp:98.5 B/P:169/79 Pulse:99 Resp:16 SaO2:97 ROOM AIR Last weight lbs:148 oz:2 K.188 Method:Bed Scales Exam General appearance: drowsy this AM but answers questions appropriately. Voice is weak and hoarse. Eyes: anicteric Cardiovascular: regular rate & rhythm Respiratory: scattered rhonchi but much less today. No wheezes ABD: soft, no tenderness Assessment/Plan Problem List 1. Pseudomonas pneumonia 2. Chemotherapy induced neutropenia 3. Large B-cell lymphoma 4. Hypothyroidism 5. HTN (hypertension) 6. Hypokalemia 7. Constipation Plan: Lungs sound much better today. WBC increased to 2000. Appetite remains poor. Encouraged OOB. This inpt stay is expected to cross 2 MNs from start of care Yes at 0863
[2016-11-12] VITALS (7 sets, daily range): BP systolic 107–178; BP diastolic 54–83
--- NOTE | 2016-11-12 08:43 | ACUTE CARE PROGRESS NOTE (QUA) ---
Progress Notes Subjective Date 11/12/16 Time 0840 Note Patient having a lot of cough this morning, requests treatment other than Tessalon, feels nauseated as well. Objective Findings Vital Signs Date Time Temp Pulse Resp B/P Pulse O2 O2 Flow FiO2 Ox Delivery Rate 11/12 0835 2 / 0835 98.5 85 16 178/78 92 2 06/05 0823 16 06/05 0603 2 06/ 0603 92 ROOM AIR 06/05 0421 98.5 85 16 178/78 92 ROOM AIR 06/05 0309 92 ROOM AIR 06/04 2353 98.7 99 20 156/78 95 ROOM AIR 06/04 2025 18 06/ 2011 98.5 92 18 153/70 91 06/04 1926 98.5 92 18 153/70 91 ROOM AIR 06/04 1600 98.0 87 18 152/87 94 ROOM AIR 06/04 1200 98.7 98 16 158/85 96 ROOM AIR 06/04 0923 16 06/04 0900 98.5 99 16 169/79 97 Last VS-Temp:98.5 B/P:178/78 Pulse:85 Resp:16 SaO2:92 ROOM AIR Last weight lbs:148 oz:2 K.188 Method:Bed Scales Exam General appearance: alert, coughing ENT: mucous membranes moist Cardiovascular: regular rate & rhythm Respiratory: good air movement (few coarse breath sounds) Assessment/Plan Problem List 1. Pseudomonas pneumonia Status: Acute 2. Chemotherapy induced neutropenia Status: Acute 3. Large B-cell lymphoma Status: Chronic 4. Hypothyroidism Status: Chronic 5. HTN (hypertension) Status: Chronic 6. Hypokalemia Status: Acute 7. Constipation Status: Chronic This inpt stay is expected to cross 2 MNs from start of care Yes Comments: Will add hycodan and zofran today, recheck labs tomorrow. at 0843
--- NOTE | 2016-11-12 09:59 | CONSULT NOTE ---
Pharmacokinetic Consult Date of consult: 11/12/16 Time of consult: 950 Referring provider: DR. SWANSON Reason for consult: TOBRAMYCIN DOSING Allergies: Coded Allergies: alprazolam (From XANAX) (Intermediate, ADVERSE 11/06/16) tetanus and diphtheria toxoids (Mild, 08/17/16) Iodinated Contrast Media - Oral and (08/25/16) ibuprofen (STATED IT INTERACTS WITH CHEMO 11/07/16) acetaminophen (From TYLENOL) (INTERACT WITH CHEMO 11/07/16) Home Medications: Reported Medications Benzonatate 100 MG PO TID #30 CAPSULE ONDANSETRON HCL (Ondansetron Hydrochloride) 4 MG PO Q8HP #42 TAB POLYETHYLENE GLYCOL (Miralax) 17 GM PO DAILY Multivits,Ca,Minerals/Iron/FA (Therapeutic-M Caplet) 1 EACH PO DAILY MORPHINE SULF IMMED.RELEASE (Morphine Sulfate) 15 MG PO Q4HP PRN pain Filgrastim (Neupogen) 300 MCG IJ QOD PAROXETINE HCL (Paroxetine Hcl) 20 MG PO DAILY #30 TAB Prochlorperazine Maleate 10 MG PO Q6HP PRN NAUSEA/VOMITING Docusate Sodium 100 MG PO BID ALBUTEROL-IPRATROPIUM (Iprat-Albut 0.5-3(2.5) MG/3 Ml) 3 ML IH Q4HP PRN SHORTNESS OF AIR #540 ALBUTEROL (Ventolin Hfa) 2 PUFF IH QID VALSARTAN/HYDROCHLOROTHIAZIDE (Valsartan-Hctz 160-12.5 MG Tab) 1 TAB PO DAILY Lidocaine HCl (Lidocaine 2% Viscous; 100ML) 5 ML PO QIDP PRN MUCOSITIS MELATONIN (Melatin) 3 MG PO QHSP PRN SLEEP Pantoprazole Sodium (Pantoprazole 40MG) 40 MG PO DAILY AMOXICILLIN/POTASSIUM CLAV (Amox Tr-K Clv 875-125 MG Tab) 1 TAB PO BID #14 TAB Acetaminophen 325 MG PO Q6HP PRN PAIN DEXTROMETHORPHAN-GG (Guaifenesin Dm Syrup) 15 ML PO QIDP PRN COUGH Diphenhydramine HCl (Allergy Medicine) 15 ML PO QIDP PRN MUCOSITIS SODIUM CHLORIDE FOR INHALATION (Sodium Chloride) 3 ML IH Q2H Levothyroxine Sodium 0.05 MG PO DAILY #90 Atorvastatin Calcium 10 MG PO DAILY #30 MORPHINE SULFATE SR/ER (Morphine Sulfate ER) 15 MG PO BID #20 Metoprolol Tartrate (Lopressor) 12.5 MG PO BID #30 Height (feet): 5 Height (inches): 7.00 Medical History: CAD? No Angina: No [place]: No Hypertension? Yes Hyperlipidemia? Yes CHF? No DVT? Yes PE? No COPD? No Asthma? No Anemia? No GERD? No Gastric ulcers? No GI Bleed? No Hernia? No Thyroid Problems? Yes Hypothyroidism? Yes CVA? No Seizures? No Diabetes? No Renal Insuffiency? No UTI? No Stones? No GB Disease: No Nephritic Syndrome? No Asplenia? No Hepatitis? No Sickle Cell Disease? No Arthritis? No Migraines? No Cataracts? No Glaucoma? No MRSA? No HIV? No TB? No Anxiety? Yes Depression? No Cancer? Yes Site: UTERINE, LYMPHOMA More? No Labs: GENTAMICIN TROUGH LEVEL ON 11/10/16 @ 1922: 2.6 MCG/ML Problem List: 1. Pneumonia Plan: GENTAMICIN TROUGH LEVEL YESTERDAY WAS 2.6 MCG/ML. GENTAMICIN WAS CHANGED TO TOBRAMYCIN BY . RECOMMEND CHANGING TOBRAMYCIN INTERVAL TO 420 MG IV Q36H TO BEGIN THIS MORNING. WILL OBTAIN TOBRAMYCIN 4 AND 12 HOUR LEVELS. PHARMACY WILL FOLLOW DAILY AND ADJUST APPROPRIATE. at 0958
[2016-11-13] VITALS (24 sets, daily range): BP systolic 115–180; BP diastolic 50–86
[2016-11-13 06:42] LABS: LYMPH # 0.7 K/mm3 (0.7-4.5); LYMPH % 19.1 % (10-50.0)
[2016-11-13 06:45] LABS: HEMOGLOBIN 7.6 g/dL (12.2-16.2)
--- NOTE | 2016-11-13 07:50 | RADIOLOGY REPORT PS360 ---
CHEST-PORTABLE HISTORY: pneumonia ORDERING PHYSICIAN: Jam Izquierdo MD PATIENT AGE: 76 years COMPARISON: 11/08/2016 FINDINGS: There remains consolidation/volume loss in the left perihilar region as before. Patient has a known mediastinal mass. Right upper extremity PICC line remains in place. Bilateral mainstem bronchi stents noted. IMPRESSION: No change in the left perihilar consolidation/volume loss
--- NOTE | 2016-11-13 08:23 | ACUTE CARE PROGRESS NOTE (QUA) ---
Progress Notes Subjective Date 11/13/16 Time 0819 Note Pt states she is feeling a little better today. Still coughing and SOA. Denies any pain. Slept well. Tried to eat a small amount. Objective Findings Last VS-Temp:98.1 B/P:151/76 Pulse:112 Resp:18 SaO2:97 ROOM AIR Last weight lbs:148 oz:2 K.188 Method:Bed Scales Laboratory Tests 11/13/16 0605: Sodium 136, Potassium 3.4 L, Chloride 101, Carbon Dioxide 28, BUN 5 L, Creatinine 0.8, Estimated Creat Clear 61, Estimated GFR (MDRD) 69, Glucose 93, Calcium 8.2 L, WBC 3.5 L, RBC 2.46 L, Hgb 7.6 *L, Hct 22.9 *L, MCV 93.1, RDW 18.9 H, Plt Count 109 L, MPV 7.1 L, Gran % 69.3, Gran # 2.5, Lymphocytes % 19.1, Monocytes % 10.9 H, Eosinophils % 0.3, Basophils % 0.5, Lymphocytes # 0.7 , Monocytes # 0.4, Eosinophils # 0.0, Basophils # 0.0, PUBS MCHC 33.3, MCH 31.0 11/12/16 1936: Random Tobramycin 6.3 11/12/16 1300: Random Tobramycin 15.9 CXR - No change in the left perihilar consolidation/volume loss Exam General appearance: alert, awake, no acute distress Cardiovascular: regular rate & rhythm Respiratory: wheezing and rhonchi bilaterally, moving air better today ABD: non-distended, normal bowel sounds, no rebound, soft, no tenderness, no guarding Extremities: no peripheral edema Assessment/Plan Problem List 1. Pseudomonas pneumonia Status: Acute 2. Chemotherapy induced neutropenia Status: Acute 3. Large B-cell lymphoma Status: Chronic 4. Hypothyroidism Status: Chronic 5. HTN (hypertension) Status: Chronic 6. Hypokalemia Status: Acute 7. Constipation Status: Chronic 8. Anemia Plan: Will continue abx. Will transfuse today d/t low HGB. Will continue to replace potassium. This inpt stay is expected to cross 2 MNs from start of care Yes (Fariha Yoo) Assessment/Plan Problem List 1. Pseudomonas pneumonia Status: Acute 2. Chemotherapy induced neutropenia Status: Acute 3. Large B-cell lymphoma Status: Chronic 4. Hypothyroidism Status: Chronic 5. HTN (hypertension) Status: Chronic 6. Hypokalemia Status: Acute 7. Constipation Status: Chronic 8. Anemia Comments: Patient seen and agree with above note. (Boaz Tejeda MD) at 0822 at 0841
[2016-11-13 10:34] LABS: ABO BLOOD TYPE B; RH BLOOD TYPE POSITIVE
[2016-11-13 10:35] LABS: ANTIHUMAN GLOB CROSSMATCH COMPAT
--- NOTE | 2016-11-13 11:17 | CONSULT NOTE ---
Pharmacokinetic Consult Date of consult: 11/13/16 Time of consult: 1114 Referring provider: DR. SWANSON Reason for consult: TOBRAMYCIN LEVELS Allergies: Coded Allergies: alprazolam (From XANAX) (Intermediate, ADVERSE 11/06/16) tetanus and diphtheria toxoids (Mild, 08/17/16) Iodinated Contrast Media - Oral and (08/25/16) ibuprofen (STATED IT INTERACTS WITH CHEMO 11/07/16) acetaminophen (From TYLENOL) (INTERACT WITH CHEMO 11/07/16) Home Medications: Reported Medications Benzonatate 100 MG PO TID #30 CAPSULE ONDANSETRON HCL (Ondansetron Hydrochloride) 4 MG PO Q8HP #42 TAB POLYETHYLENE GLYCOL (Miralax) 17 GM PO DAILY Multivits,Ca,Minerals/Iron/FA (Therapeutic-M Caplet) 1 EACH PO DAILY MORPHINE SULF IMMED.RELEASE (Morphine Sulfate) 15 MG PO Q4HP PRN pain Filgrastim (Neupogen) 300 MCG IJ QOD PAROXETINE HCL (Paroxetine Hcl) 20 MG PO DAILY #30 TAB Prochlorperazine Maleate 10 MG PO Q6HP PRN NAUSEA/VOMITING Docusate Sodium 100 MG PO BID ALBUTEROL-IPRATROPIUM (Iprat-Albut 0.5-3(2.5) MG/3 Ml) 3 ML IH Q4HP PRN SHORTNESS OF AIR #540 ALBUTEROL (Ventolin Hfa) 2 PUFF IH QID VALSARTAN/HYDROCHLOROTHIAZIDE (Valsartan-Hctz 160-12.5 MG Tab) 1 TAB PO DAILY Lidocaine HCl (Lidocaine 2% Viscous; 100ML) 5 ML PO QIDP PRN MUCOSITIS MELATONIN (Melatin) 3 MG PO QHSP PRN SLEEP Pantoprazole Sodium (Pantoprazole 40MG) 40 MG PO DAILY AMOXICILLIN/POTASSIUM CLAV (Amox Tr-K Clv 875-125 MG Tab) 1 TAB PO BID #14 TAB Acetaminophen 325 MG PO Q6HP PRN PAIN DEXTROMETHORPHAN-GG (Guaifenesin Dm Syrup) 15 ML PO QIDP PRN COUGH Diphenhydramine HCl (Allergy Medicine) 15 ML PO QIDP PRN MUCOSITIS SODIUM CHLORIDE FOR INHALATION (Sodium Chloride) 3 ML IH Q2H Levothyroxine Sodium 0.05 MG PO DAILY #90 Atorvastatin Calcium 10 MG PO DAILY #30 MORPHINE SULFATE SR/ER (Morphine Sulfate ER) 15 MG PO BID #20 Metoprolol Tartrate (Lopressor) 12.5 MG PO BID #30 Height (feet): 5 Height (inches): 7.00 Medical History: CAD? No Angina: No [place]: No Hypertension? Yes Hyperlipidemia? Yes CHF? No DVT? Yes PE? No COPD? No Asthma? No Anemia? No GERD? No Gastric ulcers? No GI Bleed? No Hernia? No Thyroid Problems? Yes Hypothyroidism? Yes CVA? No Seizures? No Diabetes? No Renal Insuffiency? No UTI? No Stones? No GB Disease: No Nephritic Syndrome? No Asplenia? No Hepatitis? No Sickle Cell Disease? No Arthritis? No Migraines? No Cataracts? No Glaucoma? No MRSA? No HIV? No TB? No Anxiety? Yes Depression? No Cancer? Yes Site: UTERINE, LYMPHOMA More? No Labs: Laboratory Tests 11/13/16 1058: Misc Test Units BLOOD UNIT RELEASE 11/13/16 0905: Antibody Screen NEGATIVE, Miscellaneous Test POSITIVE 11/13/16 0605: Sodium 136, Potassium 3.4 L, Chloride 101, Carbon Dioxide 28, BUN 5 L, Creatinine 0.8, Estimated Creat Clear 61, Estimated GFR (MDRD) 69, Glucose 93, Calcium 8.2 L, WBC 3.5 L, RBC 2.46 L, Hgb 7.6 *L, Hct 22.9 *L, MCV 93.1, RDW 18.9 H, Plt Count 109 L, MPV 7.1 L, Gran % 69.3, Gran # 2.5, Lymphocytes % 19.1, Monocytes % 10.9 H, Eosinophils % 0.3, Basophils % 0.5, Lymphocytes # 0.7 , Monocytes # 0.4, Eosinophils # 0.0, Basophils # 0.0, PUBS MCHC 33.3, MCH 31.0 11/12/16 1936: Random Tobramycin 6.3 11/12/16 1300: Random Tobramycin 15.9 Problem List: 1. Pseudomonas pneumonia Acute Plan: TOBRAMYCIN LEVELS: 1.5 HOURS POST INFUSION: 15.9 MCG/ML CALCULATED PEAK: 17.07 MCG/ML 8 HOURS POST INFUSION: 6.3 MCG/ML CALCULATED TROUGH: 0.12 MCG/ML BASED ON LEVELS AND PATIENT FACTORS, RECOMMEND CONTINUING TOBRAMYCIN 420 MG (7 MG/KG/DBW) IV Q36H. PHARMACY WILL CONTINUE TO MONITOR DAILY AND ADJUST APPROPRIATE. Antibiotic Stewardship (2) Current Culture Results Microbiology 11/07 120 SPUTUM: Sputum Culture - COMP PSEUDOMONAS AERUGINOSA 11/07 120 SPUTUM: Gram Stain - COMP 11/07 1919 BLOOD: Anaerobic Blood Culture - COMP 11/07 1919 BLOOD: Aerobic Blood Culture - COMP at 1119
--- NOTE | 2016-11-13 14:14 | ACUTE CARE PROGRESS NOTE (QUA) ---
Progress Notes Subjective Date 11/13/16 Time 1412 Assessment/Plan Problem List 1. Pseudomonas pneumonia Status: Acute 2. Chemotherapy induced neutropenia Status: Acute 3. Large B-cell lymphoma Status: Chronic 4. Hypothyroidism Status: Chronic 5. HTN (hypertension) Status: Chronic 6. Hypokalemia Status: Acute 7. Constipation Status: Chronic 8. Anemia This inpt stay is expected to cross 2 MNs from start of care Yes Antibiotic Stewardship (2) Current Culture Results Microbiology 11/07 1205 SPUTUM: Sputum Culture - COMP PSEUDOMONAS AERUGINOSA 11/07 1205 SPUTUM: Gram Stain - COMP 11/07 1919 BLOOD: Anaerobic Blood Culture - COMP 11/07 1919 BLOOD: Aerobic Blood Culture - COMP Infxn that will respond? Yes Right drug,dose,and route? Yes More targeted antbx? No Comment: > SPUTUM CULTURE Final 11/09/16-0837 Organism 1 PSEUDOMONAS AERUGINOSA 1. PSEUDOMONAS AERUGINOSA RX AB M.I.C ROUTE COST I TRIMETH/SULFAMETH (BACTRIM) R >=320 AMPICILLIN R >=32 AMOXOC/CLAV ACID (AUGMENTIN) R >=32 AMPICILLIN/SULBACTAM R >=32 CEFAZOLIN R >=64 CEFTAZIDIME (FORTAZ) R >=64 CEFEPIME I 16 GENTAMICIN S 2 IMIPENEM S 2 CEFTRIAXONE R >=64 LEVOFLOXACIN S 2 NITROFURANTOIN (MACRODANTIN) R >=512 PIPERACILLIN/TAZOBACTAM R >=128 TOBRAMYCIN S <=1 at 1412
[2016-11-13 17:22] LABS: HEMOGLOBIN 11.3 g/dL (12.2-16.2)
[2016-11-14] VITALS (8 sets, daily range): BP systolic 128–160; BP diastolic 51–84
[2016-11-14 07:15] LABS: HEMOGLOBIN 12.3 g/dL (12.2-16.2); LYMPH # 0.7 K/mm3 (0.7-4.5); LYMPH % 12.8 % (10-50.0)
--- NOTE | 2016-11-14 08:29 | ACUTE CARE PROGRESS NOTE (QUA) ---
Progress Notes Subjective Date 11/14/16 Time 0826 Note Looks and feels better today. Able to sit up to eat breakfast. Still with a cough - no sputum production. Denies any pain. Objective Findings Last VS-Temp:97.6 B/P:132/75 Pulse:88 Resp:20 SaO2:92 ROOM AIR Last weight lbs:148 oz:2 K.188 Method:Bed Scales Exam General appearance: alert, awake, no acute distress Cardiovascular: regular rate & rhythm Respiratory: wheezing bilaterally, better air movement ABD: non-distended, normal bowel sounds, no rebound, soft, no tenderness, no guarding Extremities: no peripheral edema Assessment/Plan Problem List 1. Pseudomonas pneumonia Status: Acute 2. Chemotherapy induced neutropenia Status: Acute 3. Large B-cell lymphoma Status: Chronic 4. Hypothyroidism Status: Chronic 5. HTN (hypertension) Status: Chronic 6. Hypokalemia Status: Acute 7. Constipation Status: Chronic 8. Anemia Plan: Labs much better today. H&H stable. Will discuss further care with Dr. Tejeda. This inpt stay is expected to cross 2 MNs from start of care Yes (Fariha Yoo) Assessment/Plan Problem List 1. Pseudomonas pneumonia Status: Acute 2. Chemotherapy induced neutropenia Status: Acute 3. Large B-cell lymphoma Status: Chronic 4. Hypothyroidism Status: Chronic 5. HTN (hypertension) Status: Chronic 6. Hypokalemia Status: Acute 7. Constipation Status: Chronic 8. Anemia Comments: Patient seen, agree with above note. SHe feels better today after her transfusion yesterday. (Boaz Tejeda MD) Antibiotic Stewardship (2) Infxn that will respond? Yes Right drug,dose,and route? Yes More targeted antbx? No (Fariha Yoo) at 0828 at [phone]
--- NOTE | 2016-11-14 13:13 | RADIOLOGY REPORT PS360 ---
CHEST-PORTABLE HISTORY: PICC LINE PLACEMENT ORDERING PHYSICIAN: Jam Izquierdo MD PATIENT AGE: 76 years COMPARISON: 11/13/2016 FINDINGS: The right upper extremity PICC line is once again noted. The tip is retracted slightly by approximately 2 to 3 cm but does remain in good position in the region of the superior vena cava. There remains volume loss in the left perihilar region. The remaining lungs are clear. IMPRESSION: 1. Good placement of PICC line. 2. Unchanged left perihilar volume loss
[2016-11-15] VITALS (8 sets, daily range): BP systolic 103–162; BP diastolic 56–93
--- NOTE | 2016-11-15 08:26 | ACUTE CARE PROGRESS NOTE (QUA) ---
Progress Notes Subjective Date 11/15/16 Time 0823 Note Pt feeling better today. Denies SOA until she has a coughing fit. Has been sitting up eating breakfast. Denies any pain. Objective Findings Last VS-Temp:98.7 B/P:139/83 Pulse:100 Resp:20 SaO2:94 OXYGEN Last weight lbs:148 oz:2 K.188 Method:Bed Scales Exam General appearance: alert, awake, no acute distress Cardiovascular: regular rate & rhythm Respiratory: much less wheezing and rhonchi, better air movement ABD: non-distended, normal bowel sounds, no rebound, soft, no tenderness, no guarding Extremities: no peripheral edema Assessment/Plan Problem List 1. Pseudomonas pneumonia Status: Acute 2. Chemotherapy induced neutropenia Status: Acute 3. Large B-cell lymphoma Status: Chronic 4. Hypothyroidism Status: Chronic 5. HTN (hypertension) Status: Chronic 6. Hypokalemia Status: Acute 7. Constipation Status: Chronic 8. Anemia Plan: Pt improving. Will check oxygen on RA today. Will discuss disposition with Dr. Tejeda. This inpt stay is expected to cross 2 MNs from start of care Yes (Fariha Yoo) Assessment/Plan Problem List 1. Pseudomonas pneumonia Status: Acute 2. Chemotherapy induced neutropenia Status: Acute 3. Large B-cell lymphoma Status: Chronic 4. Hypothyroidism Status: Chronic 5. HTN (hypertension) Status: Chronic 6. Hypokalemia Status: Acute 7. Constipation Status: Chronic 8. Anemia Comments: Patient seen and agree with above note. (Boaz Tejeda MD) Antibiotic Stewardship (2) Infxn that will respond? Yes Right drug,dose,and route? Yes More targeted antbx? No (Fariha Yoo) at 0825 at [phone]
[2016-11-16 04:00] VITALS: BP 158/83
[2016-11-16 06:56] LABS: HEMOGLOBIN 12.5 g/dL (12.2-16.2); LYMPH # 1.1 K/mm3 (0.7-4.5); LYMPH % 16.6 % (10-50.0)
--- NOTE | 2016-11-16 08:12 | ACUTE CARE PROGRESS NOTE (QUA) ---
Progress Notes Subjective Date 11/16/16 Time 0810 Note Pt states she feels about the same. Still coughing off and on. SOA has improved. Has been off oxygen all morning. Slept well and ate most of her breakfast. Objective Findings Last VS-Temp:97.0 B/P:158/83 Pulse:93 Resp:18 SaO2:80 OXYGEN Last weight lbs:148 oz:2 K.188 Method:Bed Scales Laboratory Tests 11/16/16 0625: Sodium 136, Potassium 3.9, Chloride 99, Carbon Dioxide 28, BUN 5 L, Creatinine 0.8, Estimated Creat Clear 61, Estimated GFR (MDRD) 69, Glucose 103, Calcium 8.6 , WBC 6.9, RBC 4.18 L, Hgb 12.5, Hct 38.4, MCV 91.8, RDW 17.1, Plt Count 207, MPV 7.2 L, Gran % 75.0, Gran # 5.2, Lymphocytes % 16.6, Monocytes % 7.5, Eosinophils % 0.4, Basophils % 0.4, Lymphocytes # 1.1, Monocytes # 0.5, Eosinophils # 0.0, Basophils # 0.0, PUBS MCHC 32.6, MCH 29.9 Exam General appearance: alert, awake, no acute distress Cardiovascular: regular rate & rhythm Respiratory: faint wheezing and rhonchi - better air movement ABD: non-distended, normal bowel sounds, no rebound, soft, no tenderness, no guarding Extremities: no peripheral edema Assessment/Plan Problem List 1. Pseudomonas pneumonia Status: Acute 2. Chemotherapy induced neutropenia Status: Acute 3. Large B-cell lymphoma Status: Chronic 4. Hypothyroidism Status: Chronic 5. HTN (hypertension) Status: Chronic 6. Hypokalemia Status: Acute 7. Constipation Status: Chronic 8. Anemia Plan: Possible discharge home today on abx. Will discuss with Dr. Tejeda. Family will be staying with her. This inpt stay is expected to cross 2 MNs from start of care No (Fariha Yoo) Assessment/Plan Problem List 1. Pseudomonas pneumonia Status: Acute 2. Chemotherapy induced neutropenia Status: Acute 3. Large B-cell lymphoma Status: Chronic 4. Hypothyroidism Status: Chronic 5. HTN (hypertension) Status: Chronic 6. Hypokalemia Status: Acute 7. Constipation Status: Chronic 8. Anemia Comments: Patient seen and agree with above note, plan discharge home today with home health. Will check Tobra trough now to confirm dosing. First dose was on , plan 2 weeks of treatment due to immunocompromised state due to Lymphoma and ongoing chemotherapy. F/U in office in 5 days. (Boaz Tejeda MD) Antibiotic Stewardship (2) Infxn that will respond? Yes Right drug,dose,and route? Yes More targeted antbx? No (Fariha Yoo) at 0812 at 0854
[2016-11-16 08:50] VITALS: BP 121/61
[2016-11-16] MEDS ORDERED: TOBRAMYCIN80 MG/2 ML IJ (09:22)
[2016-11-16 10:17] VITALS: BP 121/61
--- NOTE | 2016-11-16 10:29 | CONSULT NOTE ---
Pharmacokinetic Consult Date of consult: 11/16/16 Time of consult: 1028 Referring provider: DR. PASCUAL Reason for consult: TOBRAMYCIN LEVEL AT 24 HR POST INFUSION Allergies: Coded Allergies: alprazolam (From XANAX) (Intermediate, ADVERSE 11/06/16) tetanus and diphtheria toxoids (Mild, 08/17/16) Iodinated Contrast Media - Oral and (08/25/16) ibuprofen (STATED IT INTERACTS WITH CHEMO 11/07/16) acetaminophen (From TYLENOL) (INTERACT WITH CHEMO 11/07/16) Home Medications: Reported Medications Benzonatate 100 MG PO TID #30 CAPSULE ONDANSETRON HCL (Ondansetron Hydrochloride) 4 MG PO Q8HP #42 TAB POLYETHYLENE GLYCOL (Miralax) 17 GM PO DAILY Multivits,Ca,Minerals/Iron/FA (Therapeutic-M Caplet) 1 EACH PO DAILY MORPHINE SULF IMMED.RELEASE (Morphine Sulfate) 15 MG PO Q4HP PRN pain Filgrastim (Neupogen) 300 MCG IJ QOD PAROXETINE HCL (Paroxetine Hcl) 20 MG PO DAILY #30 TAB Prochlorperazine Maleate 10 MG PO Q6HP PRN NAUSEA/VOMITING Docusate Sodium 100 MG PO BID ALBUTEROL-IPRATROPIUM (Iprat-Albut 0.5-3(2.5) MG/3 Ml) 3 ML IH Q4HP PRN SHORTNESS OF AIR #540 ALBUTEROL (Ventolin Hfa) 2 PUFF IH QID VALSARTAN/HYDROCHLOROTHIAZIDE (Valsartan-Hctz 160-12.5 MG Tab) 1 TAB PO DAILY Lidocaine HCl (Lidocaine 2% Viscous; 100ML) 5 ML PO QIDP PRN MUCOSITIS MELATONIN (Melatin) 3 MG PO QHSP PRN SLEEP Pantoprazole Sodium (Pantoprazole 40MG) 40 MG PO DAILY Acetaminophen 325 MG PO Q6HP PRN PAIN DEXTROMETHORPHAN-GG (Guaifenesin Dm Syrup) 15 ML PO QIDP PRN COUGH Diphenhydramine HCl (Allergy Medicine) 15 ML PO QIDP PRN MUCOSITIS SODIUM CHLORIDE FOR INHALATION (Sodium Chloride) 3 ML IH Q2H Levothyroxine Sodium 0.05 MG PO DAILY #90 Atorvastatin Calcium 10 MG PO DAILY #30 MORPHINE SULFATE SR/ER (Morphine Sulfate ER) 15 MG PO BID #20 Metoprolol Tartrate (Lopressor) 12.5 MG PO BID #30 Discontinued Reported Medications AMOXICILLIN/POTASSIUM CLAV (Amox Tr-K Clv 875-125 MG Tab) 1 TAB PO BID #14 TAB DC: 11/16/16918 Height (feet): 5 Height (inches): 7.00 Medical History: CAD? No Angina: No DC: No Hypertension? Yes Hyperlipidemia? Yes CHF? No DVT? Yes PE? No COPD? No Asthma? No Anemia? No GERD? No Gastric ulcers? No GI Bleed? No Hernia? No Thyroid Problems? Yes Hypothyroidism? Yes CVA? No Seizures? No Diabetes? No Renal Insuffiency? No UTI? No Stones? No GB Disease: No Nephritic Syndrome? No Asplenia? No Hepatitis? No Sickle Cell Disease? No Arthritis? No Migraines? No Cataracts? No Glaucoma? No MRSA? No HIV? No TB? No Anxiety? Yes Depression? No Cancer? Yes Site: UTERINE, LYMPHOMA More? No Labs: Laboratory Tests 11/16/16624: Sodium 136, Potassium 3.9, Chloride 99, Carbon Dioxide 28, BUN 5 L, Creatinine 0.8, Estimated Creat Clear 61, Estimated GFR (MDRD) 69, Glucose 103, Calcium 8.6 , WBC 6.9, RBC 4.18 L, Hgb 12.5, Hct 38.4, MCV 91.8, RDW 17.1, Plt Count 207, MPV 7.2 L, Gran % 75.0, Gran # 5.2, Lymphocytes % 16.6, Monocytes % 7.5, Eosinophils % 0.4, Basophils % 0.4, Lymphocytes # 1.1, Monocytes # 0.5, Eosinophils # 0.0, Basophils # 0.0, PUBS MCHC 32.6, MCH 29.9, Random Tobramycin 1.6 Plan: BASED ON PATIENT'S 24 HR POST INFUSION LEVEL OF TOBRAMCYIN 1.6 MCG/ML, RECOMMEND THAT PATIENT CONTINUES WITH Q36H DOSING INTERVAL. PATIENT TO BE D/C TODAY AND NEXT DOSE IS DUE AT 1800 TONIGHT. ADRYAN BAPTISTE, PHARMD Antibiotic Stewardship (2) Infxn that will respond? Yes Right drug,dose,and route? Yes More targeted antbx? No at [phone]
[2016-11-16 10:34] VITALS: BP 121/61
--- NOTE | 2016-11-22 13:24 | DISCHARGE SUMMARY STANDARD ---
Discharge Summary ([facility]) Date of admission: 11/06/16 Date of discharge: 11/16/16 Problem List: 1. Pseudomonas pneumonia 2. Chemotherapy induced neutropenia 3. Large B-cell lymphoma 4. Hypothyroidism 5. HTN (hypertension) 6. Hypokalemia 7. Constipation 8. Anemia History of present illness: Ms Gutierrez is a 76 year old female with a history of mediastinal diffuse large B cell lymphoma , HTN, hypothyroidism and previous HCAP who did well after her chemo untill the week prior to admission when she began coughing. She continued with a mostly nonproductive cough with SOB. She also experienced chills and diaphoresis. She presented to the ER for evaluation. She was felt to have a pneumonia and was admitted. Exam on admission: General appearance: alert, APPEARS NOT TO FEEL WELL Eyes: anicteric, pupils reactive to light ENT: mucous membranes moist, tympanic membranes normal Neck: no carotid bruit, supple, lymphadenopathy (absent), thyroid (normal) Cardiovascular: regular rate & rhythm Respiratory: CRACKLES ON THE LEFT ABD: non-distended, soft, no tenderness, bowel sounds present Extremities: no peripheral edema Neuro: alert, oriented, speech clear Hospital Course: She had a CXR showing persistent widening of the mediastinum and prominence of the marquis consistent with mediastinal/hilar mass, a new consolidation/volume loss in the left perihilar region, and small bilateral effusions. She was started on antibiotics, duo nebs, and cough and pain management. After starting antibiotics , her complete blood count showed neutropenia and a repeat chest x-ray showed mild progression of the infiltrate. Antibiotics were escalated with cultures pending. She had to be placed in reverse isolation due to a low white blood cell count. Her potassium was low, therefore was replaced. She was started on stool softeners for constipation. She began having some chest pain, therefore cardiac enzymes and electrocardiogram were ordered. They were normal. Her sputum began growing Pseudomonas, therefore she was double covered with both Levaquin and tobramycin. She was started on Hycodan for cough. Her H and H dropped, therefore she was transfused with 2 units of packed red blood cells. She looked and felt much better after transfusion. She was able to sit up and eat breakfast. She continued with a cough throughout her stay. Her chest pain resolved. Her oxygen was weaned and she began eating better and was able to get up and out of bed. Her white blood cell count improved. The patient was stable on 11/16/16 to be discharged home with home health. She would receive 2 weeks of tobramycin due to her immunocompromised state with ongoing chemotherapy. She will follow-up in the office of [facility] in 5 days. Discharge medications: Stop taking the following medications: AMOXICILLIN/POTASSIUM CLAV (Amox Tr-K Clv 875-125 MG Tab) 1 EACH TABLET ORAL TWICE A DAY Qty = 14 Continue taking these medications: Levothyroxine Sodium (Levothyroxine Sodium) 50 MCG TABLET 0.05 MILLIGRAM ORAL DAILY Qty = 90 Prochlorperazine Maleate (Prochlorperazine Maleate) 10 MG TABLET 10 MILLIGRAM ORAL EVERY 6 HOURS NEEDED as needed for NAUSEA/VOMITING Atorvastatin Calcium (Atorvastatin Calcium) 10 MG TABLET 10 MILLIGRAM ORAL DAILY Qty = 30 MORPHINE SULFATE SR/ER (Morphine Sulfate ER) 15 MG TABLET.ER 15 MILLIGRAM ORAL TWICE A DAY Qty = 20 PAROXETINE HCL (Paroxetine Hcl) 20 MG TABLET 20 MILLIGRAM ORAL DAILY Qty = 30 Metoprolol Tartrate (Lopressor) 25 MG TABLET 12.5 MILLIGRAM ORAL TWICE A DAY Qty = 30 Docusate Sodium (Docusate Sodium) 100 MG CAPSULE 100 MILLIGRAM ORAL TWICE A DAY ALBUTEROL-IPRATROPIUM (Iprat-Albut 0.5-3(2.5) MG/3 Ml) 3 ML AMPUL.NEB 3 MILLILITER INHALATION EVERY 4 HOURS NEEDED as needed for SHORTNESS OF AIR Qty = 540 ALBUTEROL (Ventolin Hfa) 8 GM HFA.AER.AD 2 PUFF INHALATION FOUR TIMES A DAY ONDANSETRON HCL (Ondansetron Hydrochloride) 8 MG TABLET 4 MILLIGRAM ORAL EVERY 8 HOURS NEEDED Qty = 42 VALSARTAN/HYDROCHLOROTHIAZIDE (Valsartan-Hctz 160-12.5 MG Tab) 1 EACH TABLET 1 TABLET ORAL DAILY Lidocaine HCl (Lidocaine 2% Viscous; 100ML) 100 ML SOLUTION 5 MILLILITER ORAL FOUR TIMES A DAY NEEDED as needed for MUCOSITIS MELATONIN (Melatin) 3 MG TABLET 3 MILLIGRAM ORAL AT BEDTIME NEEDED as needed for SLEEP MORPHINE SULF IMMED.RELEASE (Morphine Sulfate) 15 MG TABLET 15 MILLIGRAM ORAL EVERY 4 HOURS NEEDED as needed for PAIN Filgrastim (Neupogen) 300 MCG/0.5 ML SYRINGE 300 MICROGRAM INJECTION EVERY OTHER DAY Pantoprazole Sodium (Pantoprazole 40MG) 40 MG TABLET.DR 40 MILLIGRAM ORAL DAILY POLYETHYLENE GLYCOL (Miralax) 17 GM POWD.PACK 17 GRAM ORAL DAILY Multivits,Ca,Minerals/Iron/FA (Therapeutic-M Caplet) 1 EACH TABLET 1 EACH ORAL DAILY Acetaminophen (Acetaminophen) 325 MG TABLET 325 MILLIGRAM ORAL EVERY 6 HOURS NEEDED as needed for PAIN DEXTROMETHORPHAN-GG (Guaifenesin Dm Syrup) 10 ML SYRUP 15 MILLILITER ORAL FOUR TIMES A DAY NEEDED as needed for COUGH Diphenhydramine HCl (Allergy Medicine) 12.5 MG/5 ML LIQUID 15 MILLILITER ORAL FOUR TIMES A DAY NEEDED as needed for MUCOSITIS SODIUM CHLORIDE FOR INHALATION (Sodium Chloride) 3 ML VIAL.NEB 3 MILLILITER INHALATION Q2H Start taking the following new medications: Tobramycin Sulfate (Tobramycin 80MG/2ML Inj) 40 MG/ML VIAL 420 MILLIGRAM INJECTION Q36H Days = 10 No Refills Disposition: F/U with: Boaz Tejeda MD Follow up: 5 DAYS Comments, Specifics r/t O2, Equipment, Antibiotics, etc: Patient needs to continue Tobramycin 420 mg Q36H, next dose today at 6 pm. She needs PICC line care Activity: Cont Current activity Diet: Continue same diet Discharge to: HOME Agency needed? Y Specify: HOME HEALTH at 1324
== END 2016-11-16 11:40 | disposition home health service (06) | DRG 178 ==
LOC: ER 18:48 → 2ND 20:58
PROVIDERS: Emergency Medicine; Family Medicine
DX: J15.1 Pneumonia due to Pseudomonas (principal); C85.20 Mediastinal (thymic) large B-cell lymphoma, unspecified site; D70.1 Agranulocytosis secondary to cancer chemotherapy; Z87.891 Personal history of nicotine dependence; I10 Essential (primary) hypertension; E03.9 Hypothyroidism, unspecified; E87.6 Hypokalemia; T45.1X5A Adverse effect of antineoplastic and immunosuppressive drugs, initial encounter
CPT/HCPCS: J0456; J2405; J2543; J3370; P9016

== ENCOUNTER → 2017-03-22 | Emergency (ER) | payer MEDICARE ==
[~2017-03-22] VITALS: Ht 170.2 cm; Wt 61.7 kg
[~2017-03-22] MED LIST changes: +ACETAMINOPHEN325 M1 PO; +ALLERGY ME12.5 MG/5 PO; +AMOXICILLIN AND1 TA2 PO; +ATORVASTATIN CA10 M1 PO; +BACTRIM DS 8001 TA1 PO; +DOCUSATE SODIU100 MG PO; +FAMOTIDINE 20MG20 MG PO; +FLUCONAZOL100 MG/50 IV; +HYCODAN 5MG. TAB5 MG PO; +IPRATROPIUM BROM3 M1 IH; +LIDOCAINE 2% V100 M2 PO; +LOPRESSOR 25MG.25 MG PO; +MAG-OX 400MG T400 MG PO; +MAXIPIME2 GM IV; +MELATIN1 TAB PO; +MELATONIN3 MG PO; +MIRALAX(PO17 GM/1 PA PO; +MORPHINE SULFAT15 M2 PO; +MORPHINE SULFAT15 M3 PO; +NEUPOGEN300 MCG/01 IJ; +NOVAPLUS ZOSYN50 ML IV; +ONDANSETRON HYDR8 M1 PO; +OXYGEN2 IH; +PANTOPRAZOLE SO40 MG PO; +PAROXETINE HCL20 MG PO; +PREDNISONE 20MG20 MG PO; +PROCHLORPERAZIN10 MG PO; +REVLIMID20 MG PO; +ROBITUSSIN DM 105 ML PO; +SODIUM CHLORIDE3 ML IH; +THERAPEUTIC-M1 EAC1 PO; +TOBRAMYCIN80 MG/2 ML IJ; +VALSARTAN AND H1 TA1 PO; +VENTOLIN H0.09 MG/AC IH; +[UNRECOGNIZED DRUG - OTHER]
[2017-03-22 22:51] VITALS: BP 148/82
--- OUTSIDE RECORDS SUMMARY | 2017-03-23 23:57 | External Medical Summary Rpt | CCD ---
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, UNSPECIFIED , INTRATHORAC IC LYMPH NODES E86.0 DEHYDRATION J15.1 PNEUMONIA DUE TO PSEUDOMONAS J18.9 PNEUMONIA, UNSPECIFIED ORGANISM R91.8 OTHER NONSPECIFIC ABNORMAL FINDING OF LUNG FIELD S00.93XA CONTUSION OF UNSPECIFIED PART OF HEAD, INITIAL ENCOUNTER S39.012A STRAIN OF MUSCLE, FASCIA AND TENDON OF LOWER BACK, INIT S46.912A STRAIN UNSP MUSC/FASC/T END AT SHLDR/UP ARM, LEFT ARM, INIT S63.502A UNSPECIFIED SPRAIN OF LEFT WRIST, INITIAL ENCOUNTER S70.01XA CONTUSION OF RIGHT HIP, INITIAL ENCOUNTER W19.XXXA UNSPECIFIED FALL, INITIAL ENCOUNTER Results Labs Lab Lab Date Result Refere Interp Status Commen Order Detail nces retati t Range on Magnesium SerPl-mCnc (02-14-2017 09:19) Magnesi 1.6 1.9-2.4 complet um 017 mg/dL ed SerPl-m 09:19 Cnc LDH SerPl L to P-cCnc (02-14-2017 09:19) LDH 456 U/L 116-250 complet SerPl L 017 ed to 09:19 P-cCnc Gas panel in Arterial blood (01-28-2017 09:05) Arteria ACCEPTA complet l 017 BLE ed patency 09:05 Wrist artery --pre arteria l punctur e SOURCE LEFT complet 017 BRACHIA ed 09:05 L LDH SerPl L to P-cCnc (12-20-2016 14:12) LDH 180 U/L 116-250 complet SerPl L 017 ed to 14:12 P-cCnc Clostridium difficile toxin A+B [Presence] in Stool by Immunoassay (11-23-2016 13:15) Clostri Negativ Negativ complet dium 017 e e ed diffici 13:15 le toxin A+B [Presen ce] in Stool by Immunoa ssay Differential panel, method unspecified - (11-20-2016 09:10) LYMPH 23 % 10% - Normal complet 017 50% ed 09:10 Platele NORMAL complet ts 017 ed [Presen 09:10 ce] in Blood by Light microsc opy Blood product special preparation [Type] (11-13-2016 13:51) Blood BLOOD complet product 017 UNIT ed 13:51 RELEASE special prepara tion [Type] Blood product special preparation [Type] (11-13-2016 10:58) Blood BLOOD complet product 017 UNIT ed 10:58 RELEASE special prepara tion [Type] Blood type & Crossmatch panel in Blood (11-13-2016 09:05) Blood NEGATIV NEGATIV complet group 017 E E ed antibod 09:05 y screen [Presen ce] in Serum or Plasma Rh POSITIV complet [Type] 017 E ed in 09:05 Blood ABO B complet group 017 ed [Type] 09:05 in Blood Blood type & Crossmatch panel in Blood (11-13-2016 09:05) Major COMPAT complet crossma 017 ed tch 09:05 [interp retatio n] Major COMPAT complet crossma 017 ed tch 09:05 [interp retatio n] by Immedia te spin Differential panel, method unspecified - (11-10-2016 08:32) LYMPH 56 % 10% - High complet 017 50% ed 08:32 Platele MARKED complet ts 017 DECREAS ed [Presen 08:32 E ce] in Blood by Light microsc opy Differential panel, method unspecified - (11-08-2016 10:20) Anisocy 1+ complet tosis 017 ed [Presen 10:20 ce] in Blood LYMPH 45 % 10% - Normal complet 017 50% ed 10:20 Platele MOD complet ts 017 INCREAS ed [Presen 10:20 E ce] in Blood by Light microsc opy Differential panel, method unspecified - (11-06-2016 19:20) Anisocy 2+ complet tosis 017 ed [Presen 19:20 ce] in Blood Hypochr 3+ complet omia 017 ed [Presen 19:20 ce] in Blood LYMPH 9 % 10% - Low complet 017 50% ed 19:20 Platele NORMAL complet ts 017 ed [Presen 19:20 ce] in Blood by Light microsc opy Poikilo 2+ complet cytosis 017 ed 19:20 [Presen ce] in Blood by Light microsc opy Bacteria XXX Anaerobe+Aerobe Cult (10-26-2016 09:11) Bacteri [id number] complet a XXX 017 06 No ed Anaerob 09:11 growth e+Aerob (qualif e Cult ier value) SCT NGB5 NO GROWTH DAY 4. L Magnesium SerPl-mCnc (10-23-2016 12:09) Magnesi 2.7 1.9-2.4 complet um 017 mg/dL ed SerPl-m 12:09 Cnc Magnesium SerPl-mCnc (10-23-2016 03:11) Magnesi 1.7 1.9-2.4 complet um 017 mg/dL ed SerPl-m 03:11 Cnc Phosphate SerPl-mCnc (10-23-2016 03:11) Phospha 3.1 2.5-4.5 complet te 017 mg/dL ed SerPl-m 03:11 Cnc Phosphate SerPl-mCnc (10-22-2016 03:07) Phospha 10-22- 3.0 2.5-4.5 complet te 017 mg/dL ed SerPl-m 03:07 Cnc Magnesium SerPl-mCnc (10-22-2016 03:07) Magnesi 2.0 1.9-2.4 complet um 017 mg/dL ed SerPl-m 03:07 Cnc Magnesium SerPl-mCnc (10-21-2016 14:53) Magnesi 05-14-2 2.2 1.9-2.4 complet um 017 mg/dL ed SerPl-m 14:53 Cnc Potassium SerPl-sCnc (10-21-2016 14:53) Potassi 4.8 3.7-4.8 complet um 017 mmol/L ed SerPl-s 14:53 Cnc Phosphate SerPl-mCnc (10-21-2016 03:13) Phospha 3.4 2.5-4.5 complet te 017 mg/dL ed SerPl-m 03:13 Cnc Magnesium SerPl-mCnc (10-21-2016 03:13) Magnesi 1.6 1.9-2.4 complet um 017 mg/dL ed SerPl-m 03:13 Cnc Phosphate SerPl-mCnc (10-20-2016 13:55) Phospha 2.3 2.5-4.5 complet te 017 mg/dL ed SerPl-m 13:55 Cnc Phosphate SerPl-mCnc (10-20-2016 03:20) Phospha 2.3 2.5-4.5 complet te 017 mg/dL ed SerPl-m 03:20 Cnc Magnesium SerPl-mCnc (10-20-2016 03:20) Magnesi 2 2.0 1.9-2.4 complet um 017 mg/dL ed SerPl-m 03:20 Cnc Phosphate SerPl-mCnc (10-19-2016 17:00) Phospha 2.1 2.5-4.5 complet te 017 mg/dL ed SerPl-m 17:00 Cnc Magnesium SerPl-mCnc (10-19-2016 17:00) Magnesi 2.2 1.9-2.4 complet um 017 mg/dL ed SerPl-m 17:00 Cnc Potassium SerPl-sCnc (10-19-2016 17:00) Potassi 4.5 3.7-4.8 complet um 017 mmol/L ed SerPl-s 17:00 Cnc Phosphate SerPl-mCnc (10-19-2016 03:28) Phospha 2.1 2.5-4.5 complet te 017 mg/dL ed SerPl-m 03:28 Cnc Magnesium SerPl-mCnc (10-19-2016 03:28) Magnesi 1.6 1.9-2.4 complet um 017 mg/dL ed SerPl-m 03:28 Cnc Phosphate SerPl-mCnc (10-18-2016 03:04) Phospha 2.4 2.5-4.5 complet te 017 mg/dL ed SerPl-m 03:04 Cnc Magnesium SerPl-mCnc (10-18-2016 03:04) Magnesi 1.9 1.9-2.4 complet um 017 mg/dL ed SerPl-m 03:04 Cnc Phosphate SerPl-mCnc (10-17-2016 12:04) Phospha 2.9 2.5-4.5 complet te 017 mg/dL ed SerPl-m 12:04 Cnc Magnesium SerPl-mCnc (10-17-2016 12:04) Magnesi 2.6 1.9-2.4 complet um 017 mg/dL ed SerPl-m 12:04 Cnc Potassium SerPl-sCnc (10-17-2016 12:04) Potassi 4.4 3.7-4.8 complet um 017 mmol/L ed SerPl-s 12:04 Cnc Urate SerPl-mCnc (10-17-2016 03:25) Urate 2.1 3.5-7.3 complet SerPl-m 017 mg/dL ed Cnc 03:25 Phosphate SerPl-mCnc (10-17-2016 03:25) Phospha 2.5 2.5-4.5 complet te 017 mg/dL ed SerPl-m 03:25 Cnc Magnesium SerPl-mCnc (10-17-2016 03:25) Magnesi 1.6 1.9-2.4 complet um 017 mg/dL ed SerPl-m 03:25 Cnc LDH SerPl L to P-cCnc (10-17-2016 03:25) LDH 157 U/L 116-250 complet SerPl L 017 ed to 03:25 P-cCnc Phosphate SerPl-mCnc (10-16-2016 18:48) Phospha 2.8 2.5-4.5 complet te 017 mg/dL ed SerPl-m 18:48 Cnc Phosphate SerPl-mCnc (10-16-2016 10:38) Phospha 2.4 2.5-4.5 complet te 017 mg/dL ed SerPl-m 10:38 Cnc Urate SerPl-mCnc (10-16-2016 03:01) Urate 2.1 3.5-7.3 complet SerPl-m 017 mg/dL ed Cnc 03:01 Phosphate SerPl-mCnc (10-16-2016 03:01) Phospha 2.2 2.5-4.5 complet te 017 mg/dL ed SerPl-m 03:01 Cnc Magnesium SerPl-mCnc (10-16-2016 03:01) Magnesi 2.0 1.9-2.4 complet um 017 mg/dL ed SerPl-m 03:01 Cnc LDH SerPl L to P-cCnc (10-16-2016 03:01) LDH 154 U/L 116-250 complet SerPl L 017 ed to 03:01 P-cCnc Magnesium SerPl-mCnc (10-15-2016 15:45) Magnesi 2.3 1.9-2.4 complet um 017 mg/dL ed SerPl-m 15:45 Cnc Potassium SerPl-sCnc (10-15-2016 15:45) Potassi 3.8 3.7-4.8 complet um 017 mmol/L ed SerPl-s 15:45 Cnc Bacteria XXX Anaerobe+Aerobe Cult (10-15-2016 12:55) Bacteri [id number] complet a XXX 017 06 No ed Anaerob 12:55 growth e+Aerob (qualif e Cult ier value) SCT NGB6 NO GROWTH DAY 5. L Phosphate SerPl-mCnc (10-15-2016 04:21) Phospha 2.8 2.5-4.5 complet te 017 mg/dL ed SerPl-m 04:21 Cnc Magnesium SerPl-mCnc (10-15-2016 04:21) Magnesi 1.5 1.9-2.4 complet um 017 mg/dL ed SerPl-m 04:21 Cnc Urate SerPl-mCnc (10-15-2016 03:02) Urate 3.2 3.5-7.3 complet SerPl-m 017 mg/dL ed Cnc 03:02 Phosphate SerPl-mCnc (10-15-2016 03:02) Phospha 3.0 2.5-4.5 complet te 017 mg/dL ed SerPl-m 03:02 Cnc Magnesium SerPl-mCnc (10-15-2016 03:02) Magnesi 1.4 1.9-2.4 complet um 017 mg/dL ed SerPl-m 03:02 Cnc LDH SerPl L to P-cCnc (10-15-2016 03:02) LDH 122 U/L 116-250 complet SerPl L 017 ed to 03:02 P-cCnc UUN Ur-mCnc (10-14-2016 13:39) UUN 568 complet Ur-mCnc 017 mg/dL ed 13:39 Sodium Ur-sCnc (10-14-2016 13:39) Sodium 115 complet Ur-sCnc 017 mmol/L ed 13:39 Creat Ur-mCnc (10-14-2016 13:39) Creat 82 complet Ur-mCnc 017 mg/dL ed 13:39 Chloride Ur-sCnc (10-14-2016 13:39) Chlorid 158 complet e 017 mmol/L ed Ur-sCnc 13:39 Potassium SerPl-sCnc (10-14-2016 12:22) Potassi 4.0 3.7-4.8 complet um 017 mmol/L ed SerPl-s 12:22 Cnc Phosphate SerPl-mCnc (10-14-2016 12:22) Phospha 2.4 2.5-4.5 complet te 017 mg/dL ed SerPl-m 12:22 Cnc Urate SerPl-mCnc (10-14-2016 04:00) Urate 6.6 3.5-7.3 complet SerPl-m 017 mg/dL ed Cnc 04:00 Phosphate SerPl-mCnc (10-14-2016 04:00) Phospha 2.5 2.5-4.5 complet te 017 mg/dL ed SerPl-m 04:00 Cnc LDH SerPl L to P-cCnc (10-14-2016 04:00) LDH 145 U/L 116-250 complet SerPl L 017 ed to 04:00 P-cCnc Magnesium SerPl-mCnc (10-14-2016 04:00) Magnesi 2.0 1.9-2.4 complet um 017 mg/dL ed SerPl-m 04:00 Cnc Bacteria XXX Anaerobe+Aerobe Cult (10-13-2016 13:00) Bacteri [id number] complet a XXX 017 06 No ed Anaerob 13:00 growth e+Aerob (qualif e Cult ier value) SCT NGB6 NO GROWTH DAY 5. L Ca-I SerPl ISE-sCnc (10-13-2016 12:43) Ca-I 4.6 4.6-5.1 complet SerPl 017 mg/dL ed ISE-sCn 12:43 c Ca-I SerPl ISE-sCnc (10-13-2016 12:18) Ca-I UNDER 4.6-5.1 complet SerPl 017 INSUFFI ed ISE-sCn 12:18 CIENT c VOLUME, SPECIME N WAS UNDER FILLED AND TESTING WAS UNABLE TO BE PERFORM ED, RECOLLE CT REQUEST ED. L mg/dL Haptoglob SerPl-mCnc (10-13-2016 12:18) Haptogl 377 40-219 complet ob 017 mg/dL ed SerPl-m 12:18 Cnc Urate SerPl-mCnc (10-13-2016 12:18) Urate 9.1 3.5-7.3 complet SerPl-m 017 mg/dL ed Cnc 12:18 NT-proBNP SerPl-mCnc (10-13-2016 12:18) NT-proB 629 0-1799 complet E[employer]ATOR 017 pg/mL ed SerPl-m 12:18 Cnc Magnesium SerPl-mCnc (10-13-2016 12:18) Magnesi 2.0 1.9-2.4 complet um 017 mg/dL ed SerPl-m 12:18 Cnc LDH SerPl L to P-cCnc (10-13-2016 12:18) LDH 153 U/L 116-250 complet SerPl L 017 ed to 12:18 P-cCnc Lactate Bld-sCnc (10-13-2016 12:18) Lactate 1.2 complet 017 mmol/L ed Bld-sCn 12:18 c Bacteria XXX Anaerobe+Aerobe Cult (10-13-2016 12:18) Bacteri [id number] complet a XXX 017 06 No ed Anaerob 12:18 growth e+Aerob (qualif e Cult ier value) SCT NGB6 NO GROWTH DAY 5. L Magnesium SerPl-mCnc (10-06-2016 11:10) Magnesi 2.0 1.9-2.4 complet um 017 mg/dL ed SerPl-m 11:10 Cnc Phosphate SerPl-mCnc (10-06-2016 02:51) Phospha 4.0 2.5-4.5 complet te 017 mg/dL ed SerPl-m 02:51 Cnc Magnesium SerPl-mCnc (10-06-2016 02:51) Magnesi 1.7 1.9-2.4 complet um 017 mg/dL ed SerPl-m 02:51 Cnc Phosphate SerPl-mCnc (10-05-2016 03:34) Phospha 3.8 2.5-4.5 complet te 017 mg/dL ed SerPl-m 03:34 Cnc Magnesium SerPl-mCnc (10-05-2016 03:34) Magnesi 1.8 1.9-2.4 complet um 017 mg/dL ed SerPl-m 03:34 Cnc Magnesium SerPl-mCnc (10-04-2016 09:49) Magnesi 2.0 1.9-2.4 complet um 017 mg/dL ed SerPl-m 09:49 Cnc Phosphate SerPl-mCnc (10-04-2016 03:41) Phospha 3.2 2.5-4.5 complet te 017 mg/dL ed SerPl-m 03:41 Cnc Magnesium SerPl-mCnc (10-04-2016 03:41) Magnesi 1.7 1.9-2.4 complet um 017 mg/dL ed SerPl-m 03:41 Cnc Potassium SerPl-sCnc (10-03-2016 13:49) Potassi 4.1 3.7-4.8 complet um 017 mmol/L ed SerPl-s 13:49 Cnc Phosphate SerPl-mCnc (10-03-2016 03:04) Phospha 2.6 2.5-4.5 complet te 017 mg/dL ed SerPl-m 03:04 Cnc Magnesium SerPl-mCnc (10-03-2016 03:04) Magnesi 1.8 1.9-2.4 complet um 017 mg/dL ed SerPl-m 03:04 Cnc Phosphate SerPl-mCnc (10-02-2016 03:01) Phospha 2.3 2.5-4.5 complet te 017 mg/dL ed SerPl-m 03:01 Cnc Magnesium SerPl-mCnc (10-02-2016 03:01) Magnesi 1.8 1.9-2.4 complet um 017 mg/dL ed SerPl-m 03:01 Cnc Phosphate SerPl-mCnc (10-01-2016 14:44) Phospha 2.1 2.5-4.5 complet te 017 mg/dL ed SerPl-m 14:44 Cnc Magnesium SerPl-mCnc (10-01-2016 14:44) Magnesi 2.0 1.9-2.4 complet um 017 mg/dL ed SerPl-m 14:44 Cnc Potassium SerPl-sCnc (10-01-2016 14:44) Potassi 4.6 3.7-4.8 complet um 017 mmol/L ed SerPl-s 14:44 Cnc Phosphate SerPl-mCnc (10-01-2016 03:04) Phospha 2.2 2.5-4.5 complet te 017 mg/dL ed SerPl-m 03:04 Cnc Magnesium SerPl-mCnc (10-01-2016 03:04) Magnesi 1.8 1.9-2.4 complet um 017 mg/dL ed SerPl-m 03:04 Cnc Phosphate SerPl-mCnc (09-30-2016 03:02) Phospha 2.3 2.5-4.5 complet te 017 mg/dL ed SerPl-m 03:02 Cnc Magnesium SerPl-mCnc (09-30-2016 03:02) Magnesi 1.9 1.9-2.4 complet um 017 mg/dL ed SerPl-m 03:02 Cnc Phosphate SerPl-mCnc (09-29-2016 03:25) Phospha 2.3 2.5-4.5 complet te 017 mg/dL ed SerPl-m 03:25 Cnc Magnesium SerPl-mCnc (09-29-2016 03:25) Magnesi 2.0 1.9-2.4 complet um 017 mg/dL ed SerPl-m 03:25 Cnc Phosphate SerPl-mCnc (09-28-2016 03:26) Phospha 3.7 2.5-4.5 complet te 017 mg/dL ed SerPl-m 03:26 Cnc Magnesium SerPl-mCnc (09-28-2016 03:26) Magnesi 2.0 1.9-2.4 complet um 017 mg/dL ed SerPl-m 03:26 Cnc Phosphate SerPl-mCnc (09-26-2016 03:01) Phospha 3.1 2.5-4.5 complet te 017 mg/dL ed SerPl-m 03:01 Cnc Magnesium SerPl-mCnc (09-26-2016 03:01) Magnesi 2.1 1.9-2.4 complet um 017 mg/dL ed SerPl-m 03:01 Cnc Ferritin SerPl-mCnc (09-25-2016 11:16) Ferriti 427 13-150 complet n 017 ng/mL ed SerPl-m 11:16 Cnc Urate SerPl-mCnc (09-25-2016 03:06) Urate 04-18-2 1.2 3.5-7.3 complet SerPl-m 017 mg/dL ed Cnc 03:06 Phosphate SerPl-mCnc (09-25-2016 03:06) Phospha 2.4 2.5-4.5 complet te 017 mg/dL ed SerPl-m 03:06 Cnc Magnesium SerPl-mCnc (09-25-2016 03:06) Magnesi 2.2 1.9-2.4 complet um 017 mg/dL ed SerPl-m 03:06 Cnc LDH SerPl L to P-cCnc (09-25-2016 03:06) LDH 217 U/L 116-250 complet SerPl L 017 ed to 03:06 P-cCnc Potassium SerPl-sCnc (09-24-2016 19:35) Potassi 4.3 3.7-4.8 complet um 017 mmol/L ed SerPl-s 19:35 Cnc Urate SerPl-mCnc (09-24-2016 03:02) Urate 1.3 3.5-7.3 complet SerPl-m 017 mg/dL ed Cnc 03:02 Phosphate SerPl-mCnc (09-24-2016 03:02) Phospha 2.6 2.5-4.5 complet te 017 mg/dL ed SerPl-m 03:02 Cnc Magnesium SerPl-mCnc (09-24-2016 03:02) Magnesi 2.1 1.9-2.4 complet um 017 mg/dL ed SerPl-m 03:02 Cnc LDH SerPl L to P-cCnc (09-24-2016 03:02) LDH 192 U/L 116-250 complet SerPl L 017 ed to 03:02 P-cCnc Urate SerPl-mCnc (09-23-2016 03:24) Urate 1.4 3.5-7.3 complet SerPl-m 017 mg/dL ed Cnc 03:24 Phosphate SerPl-mCnc (09-23-2016 03:24) Phospha 3.6 2.5-4.5 complet te 017 mg/dL ed SerPl-m 03:24 Cnc Magnesium SerPl-mCnc (09-23-2016 03:24) Magnesi 2.0 1.9-2.4 complet um 017 mg/dL ed SerPl-m 03:24 Cnc LDH SerPl L to P-cCnc (09-23-2016 03:24) LDH 205 U/L 116-250 complet SerPl L 017 ed to 03:24 P-cCnc Urate SerPl-mCnc (09-22-2016 03:06) Urate 1.5 3.5-7.3 complet SerPl-m 017 mg/dL ed Cnc 03:06 Phosphate SerPl-mCnc (09-22-2016 03:06) Phospha 3.9 2.5-4.5 complet te 017 mg/dL ed SerPl-m 03:06 Cnc Magnesium SerPl-mCnc (09-22-2016 03:06) Magnesi 1.9 1.9-2.4 complet um 017 mg/dL ed SerPl-m 03:06 Cnc LDH SerPl L to P-cCnc (09-22-2016 03:06) LDH 213 U/L 116-250 complet SerPl L 017 ed to 03:06 P-cCnc Bacteria XXX Anaerobe+Aerobe Cult (09-21-2016 13:01) Bacteri [id number] complet a XXX 017 06 No ed Anaerob 13:01 growth e+Aerob (qualif e Cult ier value) SCT NGB6 NO GROWTH DAY 5. L Urate SerPl-mCnc (09-21-2016 03:05) Urate 1.6 3.5-7.3 complet SerPl-m 017 mg/dL ed Cnc 03:05 Phosphate SerPl-mCnc (09-21-2016 03:05) Phospha 3.7 2.5-4.5 complet te 017 mg/dL ed SerPl-m 03:05 Cnc Magnesium SerPl-mCnc (09-21-2016 03:05) Magnesi 2.0 1.9-2.4 complet um 017 mg/dL ed SerPl-m 03:05 Cnc LDH SerPl L to P-cCnc (09-21-2016 03:05) LDH 186 U/L 116-250 complet SerPl L 017 ed to 03:05 P-cCnc Osmolality Ur (09-20-2016 11:41) Osmolal 292 300-900 complet ity Ur 017 mOsm/kg ed 11:41 Sodium Ur-sCnc (09-20-2016 11:41) Sodium 105 complet Ur-sCnc 017 mmol/L ed 11:41 Magnesium SerPl-mCnc (09-20-2016 09:38) Magnesi 2.1 1.9-2.4 complet um 017 mg/dL ed SerPl-m 09:38 Cnc Magnesium SerPl-mCnc (09-17-2016 03:12) Magnesi 1.9 1.9-2.4 complet um 017 mg/dL ed SerPl-m 03:12 Cnc Phosphate SerPl-mCnc (09-17-2016 03:12) Phospha 2.7 2.5-4.5 complet te 017 mg/dL ed SerPl-m 03:12 Cnc Urate SerPl-mCnc (09-17-2016 03:12) Urate 1.5 3.5-7.3 complet SerPl-m 017 mg/dL ed Cnc 03:12 LDH SerPl L to P-cCnc (09-17-2016 03:12) LDH 152 U/L 116-250 complet SerPl L 017 ed to 03:12 P-cCnc Magnesium SerPl-mCnc (09-14-2016 05:18) Magnesi 1.7 1.9-2.4 complet um 017 mg/dL ed SerPl-m 05:18 Cnc Phosphate SerPl-mCnc (09-14-2016 05:18) Phospha 2.9 2.5-4.5 complet te 017 mg/dL ed SerPl-m 05:18 Cnc LDH SerPl L to P-cCnc (09-14-2016 03:00) LDH 193 U/L 116-250 complet SerPl L 017 ed to 03:00 P-cCnc Urate SerPl-mCnc (09-14-2016 03:00) Urate 04-07-2 2.3 3.5-7.3 complet SerPl-m 017 mg/dL ed Cnc 03:00 Phosphate SerPl-mCnc (09-14-2016 03:00) Phospha 2.9 2.5-4.5 complet te 017 mg/dL ed SerPl-m 03:00 Cnc Magnesium SerPl-mCnc (09-14-2016 03:00) Magnesi 1.7 1.9-2.4 complet um 017 mg/dL ed SerPl-m 03:00 Cnc Magnesium SerPl-mCnc (09-13-2016 10:21) Magnesi 1.8 1.9-2.4 complet um 017 mg/dL ed SerPl-m 10:21 Cnc Magnesium SerPl-mCnc (08-28-2016 09:12) Magnesi 2.2 1.9-2.4 complet um 017 mg/dL ed SerPl-m 09:12 Cnc B2 Microglob Ser-mCnc (08-26-2016 02:44) B2 3.82 <=2.51 complet Microgl 017 mg/L ed ob 02:44 Ser-mCn c Path Rev Bld -Imp (08-25-2016 15:37) Path [id number] complet Rev Bld 017 04 ed -Imp 15:37 refer to patholo gy laborat ory SCT COPATH COPATH REPORT TO FOLLOW L Phosphate SerPl-mCnc (08-25-2016 15:37) Phospha 3.4 2.5-4.5 complet te 017 mg/dL ed SerPl-m 15:37 Cnc Magnesium SerPl-mCnc (08-25-2016 15:37) Magnesi 1.7 1.9-2.4 complet um 017 mg/dL ed SerPl-m 15:37 Cnc LDH SerPl L to P-cCnc (08-25-2016 15:37) LDH 134 U/L 116-250 complet SerPl L 017 ed to 15:37 P-cCnc Bas Metab 2000 Pnl SerPl (05-18-2016 04:22) Comment: [employer] Guidelines Comment: Comment: Stage Description GFR Comment: 1 Normal or High 90+ Comment: 2 Mild decrease 60-89 Comment: 3 Moderate decrease 30-59 Comment: 4 Severe decrease 15-29 Comment: 5 Kidney failure <15 Anion 6.0 3.0-11. complet Gap3 016 mmol/L 0 ed SerPl-s 04:22 Cnc BUN/Cre 18.2 7.0-25. complet at 016 0 ed SerPl 04:22 GFR/BSA 48 >60 complet .pred 016 mL/min/ ed SerPl 04:22 1.73 MDRD-Ar VRat Calcium 9.0 8.7-10. complet 016 mg/dL 4 ed XXX-sCn 04:22 c CO2 24.0 20.0-31 complet SerPl-s 016 mmol/L .0 ed Cnc 04:22 Chlorid 103 99-109 complet e 016 mmol/L ed SerPl-s 04:22 Cnc Potassi 4.5 3.5-5.5 complet um 016 mmol/L ed Bld-sCn 04:22 c Sodium 133 132-146 complet Bld-sCn 016 mmol/L ed c 04:22 Creat 1.10 0.60-1. complet Bld-mCn 016 mg/dL 30 ed c 04:22 BUN 20 9-23 complet Bld-mCn 016 mg/dL ed c 04:22 Glucose 180 70-100 complet 016 mg/dL ed Bld-mCn 04:22 c CBC (hemogram) Bld Auto (05-18-2016 04:22) Platele 257 150-450 complet t # Bld 016 10*3/mm ed Auto 04:22 3 PMV Bld 10.4 fL 6.0-12. complet Auto 016 0 ed 04:22 RDW RBC 45.7 fl 37.0-54 complet Auto 016 .0 ed 04:22 RDW RBC 13.5 % 11.3-14 complet 016 .5 ed Auto-Rt 04:22 o MCHC 31.8 32.0-36 complet RBC 016 g/dL .0 ed Auto-mC 04:22 nc MCH RBC 29.6 pg 27.0-31 complet Qn 016 .0 ed Auto 04:22 MCV RBC 93.1 fL 80.0-99 complet Auto 016 .0 ed 04:22 Hct VFr 32.4 % 34.5-44 complet Bld 016 .0 ed Auto 04:22 Hgb 10.3 11.5-15 complet Bld-mCn 016 g/dL .5 ed c 04:22 RBC # 3.48 3.89-5. complet Bld 016 10*6/mm 14 ed Auto 04:22 3 WBC 15.80 3.50-10 complet nRBC 016 10*3/mm .80 ed cor # 04:22 3 Bld Potassium Bld-sCnc (05-17-2016 06:30) Potassi 3.77 3.5-5.3 complet um 016 mmol/L ed BldA-sC 06:30 nc CBC (hemogram) Bld Auto (05-11-2016 11:37) Platele 298 150-450 complet t # Bld 016 10*3/mm ed Auto 11:37 3 PMV Bld 9.9 fL 6.0-12. complet Auto 016 0 ed 11:37 RDW RBC 44.8 fl 37.0-54 complet Auto 016 .0 ed 11:37 RDW RBC 13.4 % 11.3-14 complet 016 .5 ed Auto-Rt 11:37 o MCHC 32.5 32.0-36 complet RBC 016 g/dL .0 ed Auto-mC 11:37 nc MCH RBC 30.0 pg 27.0-31 complet Qn 016 .0 ed Auto 11:37 MCV RBC 92.0 fL 80.0-99 complet Auto 016 .0 ed 11:37 Hct VFr 38.1 % 34.5-44 complet Bld 016 .0 ed Auto 11:37 Hgb 12.4 11.5-15 complet Bld-mCn 016 g/dL .5 ed c 11:37 RBC # 4.14 3.89-5. complet Bld 016 10*6/mm 14 ed Auto 11:37 3 WBC 8.62 3.50-10 complet nRBC 016 10*3/mm .80 ed cor # 11:37 3 Bld Potassium SerPl-sCnc (05-11-2016 11:37) Potassi 4.1 3.5-5.5 complet um 016 mmol/L ed Bld-sCn 11:37 c
--- OUTSIDE RECORDS SUMMARY | 2017-03-23 23:57 | External Medical Summary Rpt | CCD ---
Author Author , DAVID Organization DAVID Address Unknown Phone [email or web address] Purpose Continuity of Care Document - 05-11-2016 [...] Bacteria XXX Anaerobe+Aerobe Cult (10-26-2016 09:11) Bacteri [id number] complet a XXX 017 06 No ed [...] Bacteria XXX Anaerobe+Aerobe Cult (10-15-2016 12:55) Bacteri [id number] complet a XXX 017 06 No ed [...] Bacteria XXX Anaerobe+Aerobe Cult (10-13-2016 13:00) Bacteri [id number] complet a XXX 017 06 No ed [...] SerPl-mCnc (10-13-2016 12:18) NT-proB 629 0-1799 complet CLOTH MENDER 017 pg/mL ed SerPl-m 12:18 Cnc Magnesium SerPl-mCnc (10-13-2016 12:18) Magnesi 2.0 1.9-2.4 complet um 017 mg/dL ed SerPl-m 12:18 Cnc LDH SerPl L to P-cCnc (10-13-2016 12:18) LDH 153 U/L 116-250 complet SerPl L 017 ed to 12:18 P-cCnc Lactate Bld-sCnc (10-13-2016 12:18) Lactate 1.2 complet 017 mmol/L ed Bld-sCn 12:18 c Bacteria XXX Anaerobe+Aerobe Cult (10-13-2016 12:18) Bacteri [id number] complet a XXX 017 06 No ed [...] Bacteria XXX Anaerobe+Aerobe Cult (09-21-2016 13:01) Bacteri [id number] complet a XXX 017 06 No ed [...] Path Rev Bld -Imp (08-25-2016 15:37) Path [id number] complet Rev Bld 017 04 ed -Imp [...]
--- OUTSIDE RECORDS SUMMARY | 2017-03-23 23:58 | External Medical Summary Rpt | CCD ---
Author Author , DAVID Organization DAVID Address Unknown Phone [email or web address] Immunization Name Date Rout CVX Reac Dose Comm Prov Is Faci e tion ent ider Refu lity Give sed n Infl 11-1 Intr 140 0.5 Hist KHAF No RITE uenz 7-20 amus mL oric PATRICIA AID0 a, 16 cula al AYMA 3938 P-Fr r Info N ee rmat ion - Sour ce Unsp ecif ied
--- OUTSIDE RECORDS SUMMARY | 2017-03-23 23:58 | External Medical Summary Rpt | CCD ---
Author Author , DAVID Organization DAVID Address Unknown Phone [email or web address] Immunization Name Date Rout CVX Reac Dose Comm Prov Is Faci e tion ent ider Refu lity Give sed n Infl 11-1 Intr 140 0.5 Hist KHAF No RITE uenz 7-20 amus mL oric PATRICIA AID0 a, 16 cula al AYMA 3938 P-Fr r Info N ee rmat ion - Sour ce Unsp ecif ied
--- OUTSIDE RECORDS SUMMARY | 2017-03-24 00:03 | External Medical Summary Rpt ---
Author Author DAVID Hernández, RADHAEMILIE [employer] Organization [facility] [employer] Address Unknown Phone Unavailable Results Gas panel in Arterial blood Observa Value Referen Units Interpr Notes Date tion ce etation Range Base -2.4-+2.3 MMOL/L Normal No Jan 28 excess in informati 2016 9:05 Arterial on in AM blood source data Arteria ACCEPTA No No No No Jan 28 l BLE informa informa informa informa 2017 patency tion in tion in tion in tion in 9:05 AM Wrist source source source source artery data data data data --pre arteria l punctur e Bicarbona 22.0 - MMOL/L Low No Jan 28 te 26.0 informati 2016 9:05 [Moles/vo on in AM lume] in source Arterial data blood Carbon 35.0 - MMHG Low Jan 28 dioxide 45.0 2016 9:05 [Partial CRITICAL AM pressure] RESULTS in Arterial RESU blood LTS CALLED TO: [facility] 01/28/17 0915 Pedro Pablo on,Suzy pH of 7.35 - MMOL/L High Jan 28 Arterial 7.45 alert 2016 9:05 blood CRITICAL AM RESULTS RESU LTS CALLED TO: [facility] 01/28/17 0915 Pedro Pablo on,Suzy Oxygen 80 - 100 MMHG Normal No Jan 28 [Partial informati 2017 9:05 pressure] on in AM in source Arterial data blood Oxygen 90 - 100 % Normal No Jan 28 saturatio informati 2016 9:05 n.calcula on in AM armand from source oxygen data partial pressure in Arterial blood SOURCE LEFT No No No No Jan 28 BRACHIA informa informa informa informa 2017 L tion in tion in tion in tion in 9:05 AM source source source source data data data data Carbon 23 - 27 MMOL/L Low No Jan 28 dioxide, informati 2017 9:05 total on in AM [Moles/vo source lume] in data Arterial blood Cardiac enzymes Observa Value Referen Units Interpr Notes Date tion ce etation Range Creatine 0 - 4.0 U/L High No Jan 28 kinase.MB informati 2017 8:25 /Creatine on in AM source kinase.to data myles [Ratio] in Serum or Plasma Creatine 0.0 - 3.6 ng/mL Normal Jan 28 kinase.MB informati 2017 8:25 on in AM [Mass/vol source ume] in data Serum or Plasma Creatine 26 - 192 U/L Normal No Jan 28 kinase informati 2017 8:25 [Enzymati on in AM c source activity/ data volume] in Serum or Plasma Troponin 0.00 - ng/mL Normal No Jan 28 I.cardiac 0.06 informati 2017 8:25 on in AM [Mass/vol source ume] in data Serum or Plasma Comprehensive metabolic 2000 panel in Serum or Plasma Observa Value Referen Units Interpr Notes Date tion ce etation Range Albumin/G 1.1 - 1.8 No Low No Jan 28 lobulin informati informati 2017 8:25 [Mass on in on in AM ratio] in source source Serum or data data Plasma Albumin 3.4 - 5.0 gm/dL Low No Jan 28 [Mass/vol informati 2017 8:25 ume] in on in AM Serum or source Plasma data Alkaline 46 - 116 U/L Normal No Jan 28 phosphata informati 2016 8:25 se on in AM [Enzymati source c data activity/ volume] in Serum or Plasma Bilirubin 0.2 - 1.0 mg/dL Normal No Jan 28 .total informati 2017 8:25 [Mass/vol on in AM ume] in source Serum or data Plasma Urea 7 - 18 mg/dL High No Jan 28 nitrogen informati 2017 8:25 [Mass/vol on in AM ume] in source Serum or data Plasma Calcium 8.5 - mg/dL Low No Jan 28 [Mass/vol 10.1 informati 2017 8:25 ume] in on in AM Serum or source Plasma data Chloride 98 - 107 mmoL/L Normal No Jan 28 [Moles/vo informati 2016 8:25 lume] in on in AM Serum or source Plasma data Carbon 21.0 - mmoL/L Normal No Jan 28 dioxide, 32.0 informati 2016 8:25 total on in AM [Moles/vo source lume] in data Serum or Plasma Creatinin 0.55 - mg/dL High No Jan 28 e 1.02 informati 2016 8:25 [Mass/vol on in AM ume] in source Serum or data Plasma Creatinin 50 - 200 ML/MIN Low No Jan 28 e renal informati 2016 8:25 clearance on in AM source predicted data by Cockcroft -Gault formula Estimated 59- ML/MIN Low REFERENCE Jan 28 RANGE: 2016 8:25 glomerula >60 AM r ML/MIN/1. filtratio 73 SQUARE n rate METERSIf (GF this patient is -A merican, then multiply theresult by 1.210. Globulin 1.3 - 3.2 gm/dL Normal No Jan 28 [Mass/vol informati 2016 8:25 ume] in on in AM Serum source data Glucose 74 - 106 mg/dL High No Jan 28 [Mass/vol informati 2016 8:25 ume] in on in AM Serum or source Plasma data Potassium 3.5 - 5.1 mmoL/L Normal No Jan 282016 8:25 [Moles/vo on in AM lume] in source Serum or data Plasma Sodium 136 - 145 mmoL/L Normal No Jan 28 [Moles/vo informati 2016 8:25 lume] in on in AM Serum or source Plasma data Aspartate 15 - 37 U/L Normal No Jan 28ati 2016 8:25 aminotran on in AM sferase source [Enzymati data c activity/ volume] in Serum or Plasma Alanine 12 - 78 U/L Normal No Jan 28 aminotran informati 2016 8:25 sferase on in AM [Enzymati source c data activity/ volume] in Serum or Plasma Protein 6.4 - 8.2 gm/dL Low No Jan 28 [Mass/vol informati 2016 8:25 ume] in on in AM Serum or source Plasma data Lactate [Moles/volume] in Blood Observa Value Referen Units Interpr Notes Date tion ce etation Range Lactate 0.4 - 2.0 mmol/L High An Jan 28 [Moles/vo elevated 2016 8:25 lume] in Lactic AM Blood Acid is suggestiv e of sepsis and shouldbe repeated within 6 hours of initial testing. CBC W Auto Differential panel in Blood Observa Value Referen Units Interpr Notes Date tion ce etation Range Basophils 0 - 0.2 K/MM3 Normal No Jan 28 informati 2016 8:25 [#/volume on in AM ] in source Blood by data Automated count Basophils 0.1 - 2.0 % Normal No Jan 28 /100 informati 2016 8:25 leukocyte on in AM s in source Blood by data Automated count Eosinophi 0.0 - 0.4 K/mm3 Normal No Jan 28 ls informati 2016 8:25 [#/volume on in AM ] in source Blood by data Automated count Eosinophi 0.1 - % Normal No Jan 28 ls/100 12.0 informati 2016 8:25 leukocyte on in AM s in source Blood by data Automated count Granulocy 1.8 - 7.8 K/mm3 High No Jan 28 amee informati 2016 8:25 [#/volume on in AM ] in source Blood by data Automated count Granulocy 37.0 - % High No Jan 28 amee/100 80.0 informati 2016 8:25 leukocyte on in AM s in source Blood by data Automated count Hematocri 37.0 - % Low No Jan 28 t [Volume 47.0 informati 2016 8:25 on in AM Fraction] source of Blood data Hemoglobi 12.2 - g/dL No No Jan 28 n 16.2 informati informati 2016 8:25 [Mass/vol on in on in AM ume] in source source Blood data data Lymphocyt 0.7 - 4.5 K/mm3 Normal No Jan 28 es informati 2016 8:25 [#/volume on in AM ] in source Unspecifi data ed specimen by Automated count Lymphocyt 10 - 50.0 % Normal No Jan 28 es informati 2016 8:25 [#/volume on in AM ] in source Unspecifi data ed specimen by Automated count Erythrocy 27 - 31.2 pg Normal No Jan 28 te mean informati 2016 8:25 corpuscul on in AM ar source hemoglobi data n [Entitic mass] Erythrocy 31.8 - g/dl Normal No Jan 28 te mean 35.4 informati 2016 8:25 corpuscul on in AM ar source hemoglobi data n concentra tion [Mass/vol ume] by Automated count Erythrocy 82.2 - fl Normal No Jan 28 te mean 97.8 informati 2017 8:25 corpuscul on in AM ar volume source [Entitic data volume] by Automated count Monocytes 0.1 - 1.0 K/mm3 Normal No Jan 28 informati 2016 8:25 [#/volume on in AM ] in source Blood by data Automated count Monocytes 1.7 - 9.3 % Normal No Jan 28 / informati 2017 8:25 leukocyte on in AM s in source Blood by data Automated count Platelet 7.4 - fl Normal No Jan 28 mean 10.4 informati 2017 8:25 volume on in AM [Entitic source volume] data in Blood by Automated count Platelets 142 - 424 K/mm3 No No Jan 28 informati informati 2017 8:25 [#/volume on in on in AM ] in source source Blood data data Erythrocy 4.2 - 5.4 M/mm3 Low No Jan 28 amee informati 2017 8:25 [#/volume on in AM ] in source Amniotic data fluid Erythrocy 11.5 - % Normal No Jan 28 te 17.5 informati 2016 8:25 distribut on in AM ion width source [Entitic data volume] by Automated count Leukocyte 4.8 - K/MM3 High No Jan 28 s 10.8 informati 2016 8:25 [#/volume on in AM ] in source Blood data CBC W Auto Differential panel in Blood Observa Value Referen Units Interpr Notes Date tion ce etation Range Granulocy 1.8 - 7.8 K/mm3 High No Dec 31 amee informati 2016 8:15 [#/volume on in AM ] in source Blood by data Automated count Granulocy 37.0 - % Normal No Dec 31 amee/100 80.0 informati 2016 8:15 leukocyte on in AM s in source Blood by data Automated count Hematocri 37.0 - % Low No Dec 31 t [Volume 47.0 informati 2016 8:15 on in AM Fraction] source of Blood data Hemoglobi 12.2 - g/dL Low No Dec 31 n 16.2 informati 2016 8:15 [Mass/vol on in AM ume] in source Blood data Lymphocyt 0.7 - 4.5 K/mm3 Normal No Dec 31 es informati 2016 8:15 [#/volume on in AM ] in source Unspecifi data ed specimen by Automated count Lymphocyt 10 - 50.0 % Normal No Dec 31 es informati 2017 8:15 [#/volume on in AM ] in source Unspecifi data ed specimen by Automated count Erythrocy 27 - 31.2 pg Normal No Dec 31 te mean informati 2016 8:15 corpuscul on in AM ar source hemoglobi data n [Entitic mass] Erythrocy 31.8 - g/dl Normal No Dec 31 te mean 35.4 informati 2016 8:15 corpuscul on in AM ar source hemoglobi data n concentra tion [Mass/vol ume] by Automated count Erythrocy 82.2 - fL Normal No Dec 31 te mean 97.8 informati 2016 8:15 corpuscul on in AM ar volume source [Entitic data volume] by Automated count Monocytes 0.1 - 1.0 K/mm3 High No Dec 31 informati 2016 8:15 [#/volume on in AM ] in source Blood by data Automated count Monocytes 1.7 - 9.3 % Normal No Dec 31 /100 informati 2016 8:15 leukocyte on in AM s in source Blood by data Automated count Platelets 142 - 424 K/mm3 Normal No Dec 31 informati 2016 8:15 [#/volume on in AM ] in source Blood data Erythrocy 4.2 - 5.4 M/mm3 Low No Dec 31 amee informati 2016 8:15 [#/volume on in AM ] in source Amniotic data fluid Erythrocy 11.5 - % Normal No Dec 31 te 17.5 informati 2016 8:15 distribut on in AM ion width source [Entitic data volume] by Automated count Leukocyte 4.8 - K/mm3 High No Dec 31 s 10.8 informati 2016 8:15 [#/volume on in AM ] in source Blood data Cardiac enzymes Observa Value Referen Units Interpr Notes Date tion ce etation Range Creatine 0 - 4.0 U/L Normal No Dec 31 kinase.MB informati 2016 8:15 /Creatine on in AM source kinase.to data myles [Ratio] in Serum or Plasma Creatine 0.0 - 3.6 ng/mL Normal No Dec 31 kinase.MB informati 2016 8:15 on in AM [Mass/vol source ume] in data Serum or Plasma Creatine 26 - 192 U/L Normal No Dec 31 kinase informati 2017 8:15 [Enzymati on in AM c source activity/ data volume] in Serum or Plasma Troponin 0.00 - ng/mL Normal No Dec 31 I.cardiac 0.06 informati 2016 8:15 on in AM [Mass/vol source ume] in data Serum or Plasma Comprehensive metabolic 2000 panel in Serum or Plasma Observa Value Referen Units Interpr Notes Date tion ce etation Range Albumin/G 1.1 - 1.8 No Low No Dec 31 lobulin informati informati 2016 8:15 [Mass on in on in AM ratio] in source source Serum or data data Plasma Albumin 3.4 - 5.0 gm/dL Low No Dec 31 [Mass/vol informati 2016 8:15 ume] in on in AM Serum or source Plasma data Alkaline 46 - 116 U/L High No Dec 31 phosphata informati 2016 8:15 se on in AM [Enzymati source c data activity/ volume] in Serum or Plasma Bilirubin 0.2 - 1.0 mg/dL Normal No Dec 31 .total informati 2016 8:15 [Mass/vol on in AM ume] in source Serum or data Plasma Urea 7 - 18 mg/dL Normal No Dec 31 nitrogen informati 2016 8:15 [Mass/vol on in AM ume] in source Serum or data Plasma Calcium 8.5 - mg/dL Normal No Dec 31 [Mass/vol 10.1 informati 2016 8:15 ume] in on in AM Serum or source Plasma data Chloride 98 - 107 mmoL/L Normal No Dec 31 [Moles/vo informati 2016 8:15 lume] in on in AM Serum or source Plasma data Carbon 21.0 - mmoL/L Low No Dec 31 dioxide, 32.0 informati 2017 8:15 total on in AM [Moles/vo source lume] in data Serum or Plasma Creatinin 0.55 - mg/dL High No Dec 31 e 1.02 informati 2016 8:15 [Mass/vol on in AM ume] in source Serum or data Plasma Creatinin 50 - 200 ML/MIN Low No Dec 31 e renal informati 2016 8:15 clearance on in AM source predicted data by Cockcroft -Gault formula Estimated 59- ML/MIN Low REFERENCE Dec 31 RANGE: 2017 8:15 glomerula >60 AM r ML/MIN/1. filtratio 73 SQUARE n rate METERSIf (GF this patient is -A merican, then multiply theresult by 1.210. Globulin 1.3 - 3.2 gm/dL High No Dec 31 [Mass/vol informati 2017 8:15 ume] in on in AM Serum source data Glucose 74 - 106 mg/dL Normal No Dec 31 [Mass/vol informati 2016 8:15 ume] in on in AM Serum or source Plasma data Potassium 3.5 - 5.1 mmoL/L Normal No Dec 31 inform2016 8:15 [Moles/vo on in AM lume] in source Serum or data Plasma Sodium 136 - 145 mmoL/L Normal No Dec 31 [Moles/vo informati 2016 8:15 lume] in on in AM Serum or source Plasma data Aspartate 15 - 37 U/L Normal No Dec 31 informati 2016 8:15 aminotran on in AM sferase source [Enzymati data c activity/ volume] in Serum or Plasma Alanine 12 - 78 U/L Normal No Dec 31 aminotran informati 2016 8:15 sferase on in AM [Enzymati source c data activity/ volume] in Serum or Plasma Protein 6.4 - 8.2 gm/dL Normal No Dec 31 [Mass/vol informati 2016 8:15 ume] in on in AM Serum or source Plasma data Basic metabolic panel in Blood Observa Value Referen Units Interpr Notes Date tion ce etation Range PER DR PASCUAL Urea 7 - 18 mg/dL Normal No Dec 10 nitrogen informati 2016 9:10 [Mass/vol on in AM ume] in source Serum or data Plasma Calcium 8.5 - mg/dL Normal No Dec 10 [Mass/vol 10.1 informati 2016 9:10 ume] in on in AM Serum or source Plasma data Chloride 98 - 107 mmoL/L Normal No Dec 10 [Moles/vo informati 2016 9:10 lume] in on in AM Serum or source Plasma data Carbon 21.0 - mmoL/L Normal No Dec 10 dioxide, 32.0 informati 2016 9:10 total on in AM [Moles/vo source lume] in data Serum or Plasma Creatinin 0.55 - mg/dL Normal No Dec 10 e 1.02 informati 2017 9:10 [Mass/vol on in AM ume] in source Serum or data Plasma Creatinin 50 - 200 ML/MIN Low No Dec 10 e renal informati 2017 9:10 clearance on in AM source predicted data by Cockcroft -Gault formula Estimated 59- ML/MIN Low REFERENCE Dec 10 RANGE: 2017 9:10 glomerula >60 AM r ML/MIN/1. filtratio 73 SQUARE n rate METERSIf (GF this patient is -A merican, then multiply theresult by 1.210. Glucose 74 - 106 mg/dL High No Dec 10 [Mass/vol informati 2016 9:10 ume] in on in AM Serum or source Plasma data Potassium 3.5 - 5.1 mmoL/L High No Dec 10 inform2016 9:10 [Moles/vo on in AM lume] in source Serum or data Plasma Sodium 136 - 145 mmoL/L Low No Dec 10 [Moles/vo informati 2016 9:10 lume] in on in AM Serum or source Plasma data CBC W Auto Differential panel in Blood Observa Value Referen Units Interpr Notes Date tion ce etation Range PER DR PASCUAL Basophils 0 - 0.2 K/MM3 Normal No Dec 10 inform2016 9:10 [#/volume on in AM ] in source Blood by data Automated count Basophils 0.1 - 2.0 % Normal No Dec 10 informati 2016 9:10 leukocyte on in AM s in source Blood by data Automated count Eosinophi 0.0 - 0.4 K/mm3 Normal No Dec 10 ls informati 2016 9:10 [#/volume on in AM ] in source Blood by data Automated count Eosinophi 0.1 - % Normal No Dec 10 ls/100 12.0 informati 2016 9:10 leukocyte on in AM s in source Blood by data Automated count Granulocy 1.8 - 7.8 K/mm3 Normal No Dec 10 amee informati 2016 9:10 [#/volume on in AM ] in source Blood by data Automated count Granulocy 37.0 - % Normal No Dec 10 amee/100 80.0 informati 2016 9:10 leukocyte on in AM s in source Blood by data Automated count Hematocri 37.0 - % Low No Dec 10 t [Volume 47.0 informati 2016 9:10 on in AM Fraction] source of Blood data Hemoglobi 12.2 - g/dL Low No Dec 10 n 16.2 informati 2016 9:10 [Mass/vol on in AM ume] in source Blood data Lymphocyt 0.7 - 4.5 K/mm3 Normal No Dec 10 es ati 2016 9:10 [#/volume on in AM ] in source Unspecifi data ed specimen by Automated count Lymphocyt 10 - 50.0 % Normal No Dec 10 es informati 2016 9:10 [#/volume on in AM ] in source Unspecifi data ed specimen by Automated count Erythrocy 27 - 31.2 pg Normal No Dec 10 te mean inform2016 9:10 corpuscul on in AM ar source hemoglobi data n [Entitic mass] Erythrocy 31.8 - g/dl Normal No Dec 10 te mean 35.4 informati 2016 9:10 corpuscul on in AM ar source hemoglobi data n concentra tion [Mass/vol ume] by Automated count Erythrocy 82.2 - fl Normal No Dec 10 te mean 97.8 informati 2016 9:10 corpuscul on in AM ar volume source [Entitic data volume] by Automated count Monocytes 0.1 - 1.0 K/mm3 Normal No Dec 10 informati 2016 9:10 [#/volume on in AM ] in source Blood by data Automated count Monocytes 1.7 - 9.3 % Normal No Dec 10 informati 2016 9:10 leukocyte on in AM s in source Blood by data Automated count Platelet 7.4 - fl Low No Dec 10 mean 10.4 informati 2016 9:10 volume on in AM [Entitic source volume] data in Blood by Automated count Platelets 142 - 424 K/mm3 Normal No Dec 102016 9:10 [#/volume on in AM ] in source Blood data Erythrocy 4.2 - 5.4 M/mm3 Low No Dec 10 amee informati 2016 9:10 [#/volume on in AM ] in source Amniotic data fluid Erythrocy 11.5 - % Normal No Dec 10 te 17.5 informati 2016 9:10 distribut on in AM ion width source [Entitic data volume] by Automated count Leukocyte 4.8 - K/MM3 Normal No Dec 10 s 10.8 informati 2016 9:10 [#/volume on in AM ] in source Blood data CBC W Auto Differential panel in Blood Observa Value Referen Units Interpr Notes Date tion ce etation Range Basophils 0 - 0.2 K/MM3 Normal No Dec 06 informati 2016 6:03 [#/volume on in AM ] in source Blood by data Automated count Basophils 0.1 - 2.0 % Normal No Dec 06 informati 2016 6:03 leukocyte on in AM s in source Blood by data Automated count Eosinophi 0.0 - 0.4 K/mm3 Normal No Dec 06 ls informati 2016 6:03 [#/volume on in AM ] in source Blood by data Automated count Eosinophi 0.1 - % Normal No Dec 06 ls/100 12.0 informati 2017 6:03 leukocyte on in AM s in source Blood by data Automated count Granulocy 1.8 - 7.8 K/mm3 Normal No Dec 06 amee informati 2016 6:03 [#/volume on in AM ] in source Blood by data Automated count Granulocy 37.0 - % Normal No Dec 06 amee/100 80.0 informati 2017 6:03 leukocyte on in AM s in source Blood by data Automated count Hematocri 37.0 - % Low No Dec 06 t [Volume 47.0 informati 2016 6:03 on in AM Fraction] source of Blood data Hemoglobi 12.2 - g/dL Low No Dec 06 n 16.2 informati 2016 6:03 [Mass/vol on in AM ume] in source Blood data Lymphocyt 0.7 - 4.5 K/mm3 Normal No Dec 06 es informati 2016 6:03 [#/volume on in AM ] in source Unspecifi data ed specimen by Automated count Lymphocyt 10 - 50.0 % Normal No Dec 06 es informati 2016 6:03 [#/volume on in AM ] in source Unspecifi data ed specimen by Automated count Erythrocy 27 - 31.2 pg Normal No Dec 06 te mean informati 2016 6:03 corpuscul on in AM ar source hemoglobi data n [Entitic mass] Erythrocy 31.8 - g/dl Normal No Dec 06 te mean 35.4 informati 2016 6:03 corpuscul on in AM ar source hemoglobi data n concentra tion [Mass/vol ume] by Automated count Erythrocy 82.2 - fl Normal No Dec 06 te mean 97.8 informati 2017 6:03 corpuscul on in AM ar volume source [Entitic data volume] by Automated count Monocytes 0.1 - 1.0 K/mm3 Normal No Dec 06 informati 2017 6:03 [#/volume on in AM ] in source Blood by data Automated count Monocytes 1.7 - 9.3 % Normal No Dec 06 /100 informati 2017 6:03 leukocyte on in AM s in source Blood by data Automated count Platelet 7.4 - fl Normal No Dec 06 mean 10.4 informati 2017 6:03 volume on in AM [Entitic source volume] data in Blood by Automated count Platelets 142 - 424 K/mm3 Normal No Dec 06 informati 2017 6:03 [#/volume on in AM ] in source Blood data Erythrocy 4.2 - 5.4 M/mm3 Low No Dec 06 amee informati 2017 6:03 [#/volume on in AM ] in source Amniotic data fluid Erythrocy 11.5 - % Normal No Dec 06 te 17.5 informati 2017 6:03 distribut on in AM ion width source [Entitic data volume] by Automated count Leukocyte 4.8 - K/MM3 Normal No Dec 06 s 10.8 informati 2017 6:03 [#/volume on in AM ] in source Blood data Basic metabolic panel in Blood Observa Value Referen Units Interpr Notes Date tion ce etation Range Urea 7 - 18 mg/dL Normal No Dec 06 nitrogen informati 2017 6:03 [Mass/vol on in AM ume] in source Serum or data Plasma Calcium 8.5 - mg/dL Low No Dec 06 [Mass/vol 10.1 informati 2017 6:03 ume] in on in AM Serum or source Plasma data Chloride 98 - 107 mmoL/L High No Dec 06 [Moles/vo informati 2017 6:03 lume] in on in AM Serum or source Plasma data Carbon 21.0 - mmoL/L Normal No Dec 06 dioxide, 32.0 informati 2017 6:03 total on in AM [Moles/vo source lume] in data Serum or Plasma Creatinin 0.55 - mg/dL Normal No Dec 06 e 1.02 informati 2017 6:03 [Mass/vol on in AM ume] in source Serum or data Plasma Creatinin 50 - 200 ML/MIN Low No Dec 06 e renal informati 2017 6:03 clearance on in AM source predicted data by Cockcroft -Gault formula Estimated 59- ML/MIN Low REFERENCE Dec 06 RANGE: 2017 6:03 glomerula >60 AM r ML/MIN/1. filtratio 73 SQUARE n rate METERSIf (GF this patient is -A merican, then multiply theresult by 1.210. Glucose 74 - 106 mg/dL High No Dec 06 [Mass/vol informati 2017 6:03 ume] in on in AM Serum or source Plasma data Potassium 3.5 - 5.1 mmoL/L Normal No Dec 06 informati 2016 6:03 [Moles/vo on in AM lume] in source Serum or data Plasma Sodium 136 - 145 mmoL/L Normal No Dec 06 [Moles/vo informati 2016 6:03 lume] in on in AM Serum or source Plasma data Basic metabolic panel in Blood Observa Value Referen Units Interpr Notes Date tion ce etation Range Urea 7 - 18 mg/dL Normal No Dec 05 nitrogen informati 2016 6:30 [Mass/vol on in AM ume] in source Serum or data Plasma Calcium 8.5 - mg/dL Low No Dec 05 [Mass/vol 10.1 informati 2016 6:30 ume] in on in AM Serum or source Plasma data Chloride 98 - 107 mmoL/L High No Dec 05 [Moles/vo informati 2016 6:30 lume] in on in AM Serum or source Plasma data Carbon 21.0 - mmoL/L Normal No Dec 05 dioxide, 32.0 informati 2016 6:30 total on in AM [Moles/vo source lume] in data Serum or Plasma Creatinin 0.55 - mg/dL High No Dec 05 e 1.02 informati 2016 6:30 [Mass/vol on in AM ume] in source Serum or data Plasma Creatinin 50 - 200 ML/MIN Low No Dec 05 e renal informati 2017 6:30 clearance on in AM source predicted data by Cockcroft -Gault formula Estimated 59- ML/MIN Low REFERENCE Dec 05 RANGE: 2017 6:30 glomerula >60 AM r ML/MIN/1. filtratio 73 SQUARE n rate METERSIf (GF this patient is -A merican, then multiply theresult by 1.210. Glucose 74 - 106 mg/dL Normal No Dec 05 [Mass/vol informati 2016 6:30 ume] in on in AM Serum or source Plasma data Potassium 3.5 - 5.1 mmoL/L Normal No Dec 05 informati 2016 6:30 [Moles/vo on in AM lume] in source Serum or data Plasma Sodium 136 - 145 mmoL/L Normal No Dec 05 [Moles/vo informati 2016 6:30 lume] in on in AM Serum or source Plasma data CBC W Auto Differential panel in Blood Observa Value Referen Units Interpr Notes Date tion ce etation Range Basophils 0 - 0.2 K/MM3 Normal No Dec 05 informati 2016 6:30 [#/volume on in AM ] in source Blood by data Automated count Basophils 0.1 - 2.0 % Normal No Dec 05 /100 informati 2017 6:30 leukocyte on in AM s in source Blood by data Automated count Eosinophi 0.0 - 0.4 K/mm3 Normal No Dec 05 ls informati 2016 6:30 [#/volume on in AM ] in source Blood by data Automated count Eosinophi 0.1 - % Normal No Dec 05 ls/100 12.0 informati 2017 6:30 leukocyte on in AM s in source Blood by data Automated count Granulocy 1.8 - 7.8 K/mm3 Normal No Dec 05 amee informati 2016 6:30 [#/volume on in AM ] in source Blood by data Automated count Granulocy 37.0 - % Normal No Dec 05 amee/100 80.0 informati 2016 6:30 leukocyte on in AM s in source Blood by data Automated count Hematocri 37.0 - % Low No Dec 05 t [Volume 47.0 informati 2017 6:30 on in AM Fraction] source of Blood data Hemoglobi 12.2 - g/dL Low No Dec 05 n 16.2 informati 2017 6:30 [Mass/vol on in AM ume] in source Blood data Lymphocyt 0.7 - 4.5 K/mm3 Normal No Dec 05 es informati 2016 6:30 [#/volume on in AM ] in source Unspecifi data ed specimen by Automated count Lymphocyt 10 - 50.0 % Normal No Dec 05 es informati 2016 6:30 [#/volume on in AM ] in source Unspecifi data ed specimen by Automated count Erythrocy 27 - 31.2 pg Normal No Dec 05 te mean informati 2016 6:30 corpuscul on in AM ar source hemoglobi data n [Entitic mass] Erythrocy 31.8 - g/dl Normal No Dec 05 te mean 35.4 informati 2017 6:30 corpuscul on in AM ar source hemoglobi data n concentra tion [Mass/vol ume] by Automated count Erythrocy 82.2 - fl Normal No Dec 05 te mean 97.8 informati 2016 6:30 corpuscul on in AM ar volume source [Entitic data volume] by Automated count Monocytes 0.1 - 1.0 K/mm3 Normal No Nov 28 informati 2017 6:30 [#/volume on in AM ] in source Blood by data Automated count Monocytes 1.7 - 9.3 % Normal No Nov 28 /100 informati 2017 6:30 leukocyte on in AM s in source Blood by data Automated count Platelet 7.4 - fl Normal No Nov 28 mean 10.4 informati 2017 6:30 volume on in AM [Entitic source volume] data in Blood by Automated count Platelets 142 - 424 K/mm3 Normal No Dec 05 informati 2017 6:30 [#/volume on in AM ] in source Blood data Erythrocy 4.2 - 5.4 M/mm3 Low No Dec 05 amee informati 2017 6:30 [#/volume on in AM ] in source Amniotic data fluid Erythrocy 11.5 - % Normal No Dec 05 te 17.5 informati 2017 6:30 distribut on in AM ion width source [Entitic data volume] by Automated count Leukocyte 4.8 - K/MM3 Normal No Dec 05 s 10.8 informati 2016 6:30 [#/volume on in AM ] in source Blood data Basic metabolic panel in Blood Observa Value Referen Units Interpr Notes Date tion ce etation Range Urea 7 - 18 mg/dL Normal No Dec 03 nitrogen informati 2017 8:45 [Mass/vol on in AM ume] in source Serum or data Plasma Calcium 8.5 - mg/dL Low No Dec 03 [Mass/vol 10.1 informati 2017 8:45 ume] in on in AM Serum or source Plasma data Chloride 98 - 107 mmoL/L High No Dec 03 [Moles/vo informati 2017 8:45 lume] in on in AM Serum or source Plasma data Carbon 21.0 - mmoL/L Normal No Dec 03 dioxide, 32.0 informati 2017 8:45 total on in AM [Moles/vo source lume] in data Serum or Plasma Creatinin 0.55 - mg/dL High No Dec 03 e 1.02 informati 2017 8:45 [Mass/vol on in AM ume] in source Serum or data Plasma Creatinin 50 - 200 ML/MIN Low No Dec 03 e renal informati 2017 8:45 clearance on in AM source predicted data by Cockcroft -Gault formula Estimated 59- ML/MIN Low REFERENCE Dec 03 RANGE: 2017 8:45 glomerula >60 AM r ML/MIN/1. filtratio 73 SQUARE n rate METERSIf (GF this patient is -A merican, then multiply theresult by 1.210. Glucose 74 - 106 mg/dL High No Dec 03 [Mass/vol informati 2016 8:45 ume] in on in AM Serum or source Plasma data Potassium 3.5 - 5.1 mmoL/L Normal No Dec 03 informati 2016 8:45 [Moles/vo on in AM lume] in source Serum or data Plasma Sodium 136 - 145 mmoL/L Normal No Dec 03 [Moles/vo informati 2016 8:45 lume] in on in AM Serum or source Plasma data CBC W Auto Differential panel in Blood Observa Value Referen Units Interpr Notes Date tion ce etation Range Basophils 0 - 0.2 K/MM3 Normal No Dec 03 informati 2016 8:45 [#/volume on in AM ] in source Blood by data Automated count Basophils 0.1 - 2.0 % Normal No Dec 03 / informati 2016 8:45 leukocyte on in AM s in source Blood by data Automated count Eosinophi 0.0 - 0.4 K/mm3 Normal No Dec 03 ls informati 2016 8:45 [#/volume on in AM ] in source Blood by data Automated count Eosinophi 0.1 - % Normal No Dec 03 ls/100 12.0 informati 2016 8:45 leukocyte on in AM s in source Blood by data Automated count Granulocy 1.8 - 7.8 K/mm3 Normal No Dec 03 amee informati 2016 8:45 [#/volume on in AM ] in source Blood by data Automated count Granulocy 37.0 - % Normal No Dec 03 amee/100 80.0 informati 2016 8:45 leukocyte on in AM s in source Blood by data Automated count Hematocri 37.0 - % Low No Dec 03 t [Volume 47.0 informati 2016 8:45 on in AM Fraction] source of Blood data Hemoglobi 12.2 - g/dL Low No Dec 03 n 16.2 informati 2016 8:45 [Mass/vol on in AM ume] in source Blood data Lymphocyt 0.7 - 4.5 K/mm3 Normal No Dec 03 es informati 2016 8:45 [#/volume on in AM ] in source Unspecifi data ed specimen by Automated count Lymphocyt 10 - 50.0 % Normal No Dec 03 es informati 2016 8:45 [#/volume on in AM ] in source Unspecifi data ed specimen by Automated count Erythrocy 27 - 31.2 pg Normal No Dec 03 te mean informati 2016 8:45 corpuscul on in AM ar source hemoglobi data n [Entitic mass] Erythrocy 31.8 - g/dl Normal No Dec 03 te mean 35.4 informati 2016 8:45 corpuscul on in AM ar source hemoglobi data n concentra tion [Mass/vol ume] by Automated count Erythrocy 82.2 - fl Normal No Dec 03 te mean 97.8 informati 2016 8:45 corpuscul on in AM ar volume source [Entitic data volume] by Automated count Monocytes 0.1 - 1.0 K/mm3 Normal No Dec 03 informati 2016 8:45 [#/volume on in AM ] in source Blood by data Automated count Monocytes 1.7 - 9.3 % Normal No Dec 03 /100 informati 2016 8:45 leukocyte on in AM s in source Blood by data Automated count Platelet 7.4 - fl Normal No Dec 03 mean 10.4 informati 2016 8:45 volume on in AM [Entitic source volume] data in Blood by Automated count Platelets 142 - 424 K/mm3 Normal No Dec 03 informati 2016 8:45 [#/volume on in AM ] in source Blood data Erythrocy 4.2 - 5.4 M/mm3 Low No Dec 03 amee informati 2016 8:45 [#/volume on in AM ] in source Amniotic data fluid Erythrocy 11.5 - % Normal No Dec 03 te 17.5 informati 2016 8:45 distribut on in AM ion width source [Entitic data volume] by Automated count Leukocyte 4.8 - K/MM3 Normal No Dec 03 s 10.8 informati 2016 8:45 [#/volume on in AM ] in source Blood data Basic metabolic panel in Blood Observa Value Referen Units Interpr Notes Date tion ce etation Range Urea 7 - 18 mg/dL Normal No Dec 02 nitrogen informati 2017 6:40 [Mass/vol on in AM ume] in source Serum or data Plasma Calcium 8.5 - mg/dL Low No Dec 02 [Mass/vol 10.1 informati 2017 6:40 ume] in on in AM Serum or source Plasma data Chloride 98 - 107 mmoL/L High No Dec 02 [Moles/vo informati 2016 6:40 lume] in on in AM Serum or source Plasma data Carbon 21.0 - mmoL/L Normal No Dec 02 dioxide, 32.0 informati 2016 6:40 total on in AM [Moles/vo source lume] in data Serum or Plasma Creatinin 0.55 - mg/dL High No Dec 02 e 1.02 informati 2016 6:40 [Mass/vol on in AM ume] in source Serum or data Plasma Creatinin 50 - 200 ML/MIN Low No Dec 02 e renal informati 2017 6:40 clearance on in AM source predicted data by Cockcroft -Gault formula Estimated 59- ML/MIN Low REFERENCE Dec 02 RANGE: 2017 6:40 glomerula >60 AM r ML/MIN/1. filtratio 73 SQUARE n rate METERSIf (GF this patient is -A merican, then multiply theresult by 1.210. Glucose 74 - 106 mg/dL Normal No Dec 02 [Mass/vol informati 2016 6:40 ume] in on in AM Serum or source Plasma data Potassium 3.5 - 5.1 mmoL/L Low Dec 02 2016 6:40 [Moles/vo CRITICAL AM lume] in RESULTS Serum or Plasma RESU LTS CALLED TO: Rosa HARMON RN 12/02/16 0724 [place] Sodium 136 - 145 mmoL/L Normal No Dec 02 [Moles/vo informati 2017 6:40 lume] in on in AM Serum or source Plasma data CBC W Auto Differential panel in Blood Observa Value Referen Units Interpr Notes Date tion ce etation Range Basophils 0 - 0.2 K/MM3 Normal No Dec 02 informati 2016 6:40 [#/volume on in AM ] in source Blood by data Automated count Basophils 0.1 - 2.0 % Normal No Dec 02 /100 informati 2017 6:40 leukocyte on in AM s in source Blood by data Automated count Eosinophi 0.0 - 0.4 K/mm3 Normal No Nov 25 ls informati 2016 6:40 [#/volume on in AM ] in source Blood by data Automated count Eosinophi 0.1 - % Normal No Dec 02 ls/100 12.0 informati 2017 6:40 leukocyte on in AM s in source Blood by data Automated count Granulocy 1.8 - 7.8 K/mm3 Normal No Dec 02 amee informati 2017 6:40 [#/volume on in AM ] in source Blood by data Automated count Granulocy 37.0 - % Normal No Dec 02 amee/100 80.0 informati 2017 6:40 leukocyte on in AM s in source Blood by data Automated count Hematocri 37.0 - % Low No Dec 02 t [Volume 47.0 informati 2017 6:40 on in AM Fraction] source of Blood data Hemoglobi 12.2 - g/dL Low No Dec 02 n 16.2 informati 2017 6:40 [Mass/vol on in AM ume] in source Blood data Lymphocyt 0.7 - 4.5 K/mm3 Normal No Dec 02 es informati 2017 6:40 [#/volume on in AM ] in source Unspecifi data ed specimen by Automated count Lymphocyt 10 - 50.0 % Normal No Dec 02 es informati 2016 6:40 [#/volume on in AM ] in source Unspecifi data ed specimen by Automated count Erythrocy 27 - 31.2 pg Normal No Dec 02 te mean informati 2017 6:40 corpuscul on in AM ar source hemoglobi data n [Entitic mass] Erythrocy 31.8 - g/dl Normal No Dec 02 te mean 35.4 informati 2017 6:40 corpuscul on in AM ar source hemoglobi data n concentra tion [Mass/vol ume] by Automated count Erythrocy 82.2 - fl Normal No Dec 02 te mean 97.8 informati 2017 6:40 corpuscul on in AM ar volume source [Entitic data volume] by Automated count Monocytes 0.1 - 1.0 K/mm3 Normal No Dec 02 informati 2017 6:40 [#/volume on in AM ] in source Blood by data Automated count Monocytes 1.7 - 9.3 % Normal No Dec 02 /100 informati 2017 6:40 leukocyte on in AM s in source Blood by data Automated count Platelet 7.4 - fl Normal No Dec 02 mean 10.4 informati 2017 6:40 volume on in AM [Entitic source volume] data in Blood by Automated count Platelets 142 - 424 K/mm3 No No Dec 02 informati informati 2017 6:40 [#/volume on in on in AM ] in source source Blood data data Erythrocy 4.2 - 5.4 M/mm3 Low No Dec 02 amee informati 2016 6:40 [#/volume on in AM ] in source Amniotic data fluid Erythrocy 11.5 - % Normal No Dec 02 te 17.5 informati 2017 6:40 distribut on in AM ion width source [Entitic data volume] by Automated count Leukocyte 4.8 - K/MM3 Normal No Dec 02 s 10.8 informati 2017 6:40 [#/volume on in AM ] in source Blood data Basic metabolic panel in Blood Observa Value Referen Units Interpr Notes Date tion ce etation Range Urea 7 - 18 mg/dL Normal No Nov 30 nitrogen informati 2017 6:15 [Mass/vol on in AM ume] in source Serum or data Plasma Calcium 8.5 - mg/dL Low No Nov 30 [Mass/vol 10.1 informati 2017 6:15 ume] in on in AM Serum or source Plasma data Chloride 98 - 107 mmoL/L Normal No Nov 30 [Moles/vo informati 2017 6:15 lume] in on in AM Serum or source Plasma data Carbon 21.0 - mmoL/L Normal No Nov 30 dioxide, 32.0 informati 2017 6:15 total on in AM [Moles/vo source lume] in data Serum or Plasma Creatinin 0.55 - mg/dL High No Nov 30 e 1.02 informati 2017 6:15 [Mass/vol on in AM ume] in source Serum or data Plasma Creatinin 50 - 200 ML/MIN Low No Nov 30 e renal informati 2017 6:15 clearance on in AM source predicted data by Cockcroft -Gault formula Estimated 59- ML/MIN Low REFERENCE Nov 30 RANGE: 2017 6:15 glomerula >60 AM r ML/MIN/1. filtratio 73 SQUARE n rate METERSIf (GF this patient is -A merican, then multiply theresult by 1.210. Glucose 74 - 106 mg/dL Normal No Nov 30 [Mass/vol informati 2016 6:15 ume] in on in AM Serum or source Plasma data Potassium 3.5 - 5.1 mmoL/L Low alert Nov 30 2016 6:15 [Moles/vo CRITICAL AM lume] in RESULTS Serum or Plasma RESU LTS CALLED TO: CONNIE 11/30/16 0649 [place] maria e Sodium 136 - 145 mmoL/L Normal No Nov 30 [Moles/vo informati 2017 6:15 lume] in on in AM Serum or source Plasma data CBC W Auto Differential panel in Blood Observa Value Referen Units Interpr Notes Date tion ce etation Range Basophils 0 - 0.2 K/MM3 Normal No Nov 30 informati 2017 6:15 [#/volume on in AM ] in source Blood by data Automated count Basophils 0.1 - 2.0 % Normal No Nov 30 /100 informati 2017 6:15 leukocyte on in AM s in source Blood by data Automated count Eosinophi 0.0 - 0.4 K/mm3 Normal No Nov 30 ls informati 2017 6:15 [#/volume on in AM ] in source Blood by data Automated count Eosinophi 0.1 - % Normal No Nov 30 ls/100 12.0 informati 2017 6:15 leukocyte on in AM s in source Blood by data Automated count Granulocy 1.8 - 7.8 K/mm3 Normal No Nov 30 amee informati 2017 6:15 [#/volume on in AM ] in source Blood by data Automated count Granulocy 37.0 - % Normal No Nov 30 amee/100 80.0 informati 2017 6:15 leukocyte on in AM s in source Blood by data Automated count Hematocri 37.0 - % Low No Nov 30 t [Volume 47.0 informati 2017 6:15 on in AM Fraction] source of Blood data Hemoglobi 12.2 - g/dL Low No Nov 30 n 16.2 informati 2017 6:15 [Mass/vol on in AM ume] in source Blood data Lymphocyt 0.7 - 4.5 K/mm3 Normal No Nov 30 es informati 2017 6:15 [#/volume on in AM ] in source Unspecifi data ed specimen by Automated count Lymphocyt 10 - 50.0 % Normal No Nov 30 es informati 2017 6:15 [#/volume on in AM ] in source Unspecifi data ed specimen by Automated count Erythrocy 27 - 31.2 pg Normal No Nov 30 te mean informati 2017 6:15 corpuscul on in AM ar source hemoglobi data n [Entitic mass] Erythrocy 31.8 - g/dl Normal No Nov 30 te mean 35.4 informati 2017 6:15 corpuscul on in AM ar source hemoglobi data n concentra tion [Mass/vol ume] by Automated count Erythrocy 82.2 - fl Normal No Nov 30 te mean 97.8 informati 2016 6:15 corpuscul on in AM ar volume source [Entitic data volume] by Automated count Monocytes 0.1 - 1.0 K/mm3 Normal No Nov 30 informati 2016 6:15 [#/volume on in AM ] in source Blood by data Automated count Monocytes 1.7 - 9.3 % Normal No Nov 23 /100 informati 2017 6:15 leukocyte on in AM s in source Blood by data Automated count Platelet 7.4 - fl Normal No Nov 30 mean 10.4 informati 2016 6:15 volume on in AM [Entitic source volume] data in Blood by Automated count Platelets 142 - 424 K/mm3 Normal No Nov 30 informati 2016 6:15 [#/volume on in AM ] in source Blood data Erythrocy 4.2 - 5.4 M/mm3 Low No Nov 30 amee informati 2017 6:15 [#/volume on in AM ] in source Amniotic data fluid Erythrocy 11.5 - % Normal No Nov 30 te 17.5 informati 2016 6:15 distribut on in AM ion width source [Entitic data volume] by Automated count Leukocyte 4.8 - K/MM3 Normal No Nov 30 s 10.8 informati 2016 6:15 [#/volume on in AM ] in source Blood data Basic metabolic panel in Blood Observa Value Referen Units Interpr Notes Date tion ce etation Range Urea 7 - 18 mg/dL No No Nov 27 nitrogen informati informati 2017 5:45 [Mass/vol on in on in AM ume] in source source Serum or data data Plasma Calcium 8.5 - mg/dL Low No Nov 27 [Mass/vol 10.1 informati 2017 5:45 ume] in on in AM Serum or source Plasma data Chloride 98 - 107 mmoL/L Normal No Nov 27 [Moles/vo informati 2017 5:45 lume] in on in AM Serum or source Plasma data Carbon 21.0 - mmoL/L Normal No Nov 27 dioxide, 32.0 informati 2017 5:45 total on in AM [Moles/vo source lume] in data Serum or Plasma Creatinin 0.55 - mg/dL High No Nov 27 e 1.02 inform2016 5:45 [Mass/vol on in AM ume] in source Serum or data Plasma Creatinin 50 - 200 ML/MIN Low No Nov 27 e renal inform2016 5:45 clearance on in AM source predicted data by Cockcroft -Gault formula Estimated 59- ML/MIN Low REFERENCE Nov 27 RANGE: 2016 5:45 glomerula >60 AM r ML/MIN/1. filtratio 73 SQUARE n rate METERSIf (GF this patient is -A merican, then multiply theresult by 1.210. Glucose 74 - 106 mg/dL Normal No Nov 27 [Mass/vol informati 2016 5:45 ume] in on in AM Serum or source Plasma data Potassium 3.5 - 5.1 mmoL/L Normal No Nov 272016 5:45 [Moles/vo on in AM lume] in source Serum or data Plasma Sodium 136 - 145 mmoL/L Normal No Nov 27 [Moles/vo informati 2016 5:45 lume] in on in AM Serum or source Plasma data CBC W Auto Differential panel in Blood Observa Value Referen Units Interpr Notes Date tion ce etation Range Basophils 0 - 0.2 K/MM3 Normal No Nov 272016 5:45 [#/volume on in AM ] in source Blood by data Automated count Basophils 0.1 - 2.0 % Normal No Nov 27 / inform2016 5:45 leukocyte on in AM s in source Blood by data Automated count Eosinophi 0.0 - 0.4 K/mm3 Normal No Nov 27 ls 2016 5:45 [#/volume on in AM ] in source Blood by data Automated count Eosinophi 0.1 - % Normal No Nov 27 ls/100 12.0 informati 2016 5:45 leukocyte on in AM s in source Blood by data Automated count Granulocy 1.8 - 7.8 K/mm3 Normal No Nov 27 amee informati 2016 5:45 [#/volume on in AM ] in source Blood by data Automated count Granulocy 37.0 - % Normal No Nov 27 amee/100 80.0 informati 2016 5:45 leukocyte on in AM s in source Blood by data Automated count Hematocri 37.0 - % Low No Nov 27 t [Volume 47.0 informati 2017 5:45 on in AM Fraction] source of Blood data Hemoglobi 12.2 - g/dL Low No Nov 27 n 16.2 informati 2017 5:45 [Mass/vol on in AM ume] in source Blood data Lymphocyt 0.7 - 4.5 K/mm3 Normal No Nov 27 es informati 2017 5:45 [#/volume on in AM ] in source Unspecifi data ed specimen by Automated count Lymphocyt 10 - 50.0 % Normal No Nov 27 es informati 2017 5:45 [#/volume on in AM ] in source Unspecifi data ed specimen by Automated count Erythrocy 27 - 31.2 pg Normal No Nov 27 te mean informati 2017 5:45 corpuscul on in AM ar source hemoglobi data n [Entitic mass] Erythrocy 31.8 - g/dl Normal No Nov 27 te mean 35.4 informati 2017 5:45 corpuscul on in AM ar source hemoglobi data n concentra tion [Mass/vol ume] by Automated count Erythrocy 82.2 - fl Normal No Nov 27 te mean 97.8 informati 2017 5:45 corpuscul on in AM ar volume source [Entitic data volume] by Automated count Monocytes 0.1 - 1.0 K/mm3 Normal No Nov 27 informati 2017 5:45 [#/volume on in AM ] in source Blood by data Automated count Monocytes 1.7 - 9.3 % Normal No Nov 20 /100 informati 2017 5:45 leukocyte on in AM s in source Blood by data Automated count Platelet 7.4 - fl Normal No Nov 27 mean 10.4 informati 2017 5:45 volume on in AM [Entitic source volume] data in Blood by Automated count Platelets 142 - 424 K/mm3 Normal No Nov 20 informati 2017 5:45 [#/volume on in AM ] in source Blood data Erythrocy 4.2 - 5.4 M/mm3 Low No Nov 20 amee informati 2017 5:45 [#/volume on in AM ] in source Amniotic data fluid Erythrocy 11.5 - % Normal No Nov 27 te 17.5 informati 2017 5:45 distribut on in AM ion width source [Entitic data volume] by Automated count Leukocyte 4.8 - K/MM3 Normal No Nov 20 s 10.8 informati 2017 5:45 [#/volume on in AM ] in source Blood data Basic metabolic panel in Blood Observa Value Referen Units Interpr Notes Date tion ce etation Range Urea 7 - 18 mg/dL Low No Nov 25 nitrogen informati 2016 6:15 [Mass/vol on in AM ume] in source Serum or data Plasma Calcium 8.5 - mg/dL Low No Nov 25 [Mass/vol 10.1 informati 2016 6:15 ume] in on in AM Serum or source Plasma data Chloride 98 - 107 mmoL/L Normal No Nov 18 [Moles/vo informati 2016 6:15 lume] in on in AM Serum or source Plasma data Carbon 21.0 - mmoL/L Normal No Nov 25 dioxide, 32.0 informati 2016 6:15 total on in AM [Moles/vo source lume] in data Serum or Plasma Creatinin 0.55 - mg/dL High No Nov 25 e 1.02 informati 2016 6:15 [Mass/vol on in AM ume] in source Serum or data Plasma Creatinin 50 - 200 ML/MIN Low No Nov 25 e renal informati 2016 6:15 clearance on in AM source predicted data by Cockcroft -Gault formula Estimated 59- ML/MIN Low REFERENCE Nov 18 RANGE: 2017 6:15 glomerula >60 AM r ML/MIN/1. filtratio 73 SQUARE n rate METERSIf (GF this patient is -A merican, then multiply theresult by 1.210. Glucose 74 - 106 mg/dL Normal No Nov 25 [Mass/vol informati 2016 6:15 ume] in on in AM Serum or source Plasma data Potassium 3.5 - 5.1 mmoL/L Normal No Nov 25 informati 2016 6:15 [Moles/vo on in AM lume] in source Serum or data Plasma Sodium 136 - 145 mmoL/L Normal No Nov 18 [Moles/vo informati 2016 6:15 lume] in on in AM Serum or source Plasma data CBC W Auto Differential panel in Blood Observa Value Referen Units Interpr Notes Date tion ce etation Range Basophils 0 - 0.2 K/MM3 Normal No Nov 25 informati 2016 6:15 [#/volume on in AM ] in source Blood by data Automated count Basophils 0.1 - 2.0 % Normal No Nov 18 /100 informati 2017 6:15 leukocyte on in AM s in source Blood by data Automated count Eosinophi 0.0 - 0.4 K/mm3 Normal No Kevin 18 ls informati 2017 6:15 [#/volume on in AM ] in source Blood by data Automated count Eosinophi 0.1 - % Normal No Kevin 18 ls/100 12.0 informati 2017 6:15 leukocyte on in AM s in source Blood by data Automated count Granulocy 1.8 - 7.8 K/mm3 Normal No Nov 18 amee informati 2017 6:15 [#/volume on in AM ] in source Blood by data Automated count Granulocy 37.0 - % Normal No Nov 18 amee/100 80.0 informati 2017 6:15 leukocyte on in AM s in source Blood by data Automated count Hematocri 37.0 - % Low No Nov 18 t [Volume 47.0 informati 2016 6:15 on in AM Fraction] source of Blood data Hemoglobi 12.2 - g/dL Low No Nov 18 n 16.2 informati 2016 6:15 [Mass/vol on in AM ume] in source Blood data Lymphocyt 0.7 - 4.5 K/mm3 Normal No Nov 18 es informati 2016 6:15 [#/volume on in AM ] in source Unspecifi data ed specimen by Automated count Lymphocyt 10 - 50.0 % Normal No Nov 18 es informati 2016 6:15 [#/volume on in AM ] in source Unspecifi data ed specimen by Automated count Erythrocy 27 - 31.2 pg Normal No Nov 18 te mean informati 2017 6:15 corpuscul on in AM ar source hemoglobi data n [Entitic mass] Erythrocy 31.8 - g/dl Normal No Nov 18 te mean 35.4 informati 2017 6:15 corpuscul on in AM ar source hemoglobi data n concentra tion [Mass/vol ume] by Automated count Erythrocy 82.2 - fl Normal No Nov 18 te mean 97.8 informati 2017 6:15 corpuscul on in AM ar volume source [Entitic data volume] by Automated count Monocytes 0.1 - 1.0 K/mm3 Normal No Nov 18 informati 2017 6:15 [#/volume on in AM ] in source Blood by data Automated count Monocytes 1.7 - 9.3 % Normal No Kevin 18 /100 informati 2017 6:15 leukocyte on in AM s in source Blood by data Automated count Platelet 7.4 - fl Low No Nov 18 mean 10.4 informati 2017 6:15 volume on in AM [Entitic source volume] data in Blood by Automated count Platelets 142 - 424 K/mm3 Normal No Nov 18 informati 2016 6:15 [#/volume on in AM ] in source Blood data Erythrocy 4.2 - 5.4 M/mm3 Low No Nov 25 amee informati 2016 6:15 [#/volume on in AM ] in source Amniotic data fluid Erythrocy 11.5 - % Normal No Nov 18 te 17.5 informati 2017 6:15 distribut on in AM ion width source [Entitic data volume] by Automated count Leukocyte 4.8 - K/MM3 Normal No Nov 25 s 10.8 informati 2016 6:15 [#/volume on in AM ] in source Blood data DIARRHEA PANEL,PCR Observa Value Referen Units Interpr Notes Date tion ce etation Range Adenovi NOT NOT No No No Nov 16 princess DETECTE DETECTE informa informa informa 2016 40+41 D tion in tion in tion in 5:30 PM Ag source source source [Presen data data data ce] in Stool Aeromon NOT NOT No No No Nov 16 as DETECTE DETECTE informa informa informa 2016 salmoni D tion in tion in tion in 5:30 PM alma source source source [Presen data data data ce] in Unspeci fied specime n Astrovi NOT NOT No No No Nov 23 princess DETECTE DETECTE informa informa informa 2016 [Presen D tion in tion in tion in 5:30 PM ce] in source source source Stool data data data by Electro n microsc opy Campylo NOT NOT No No No Nov 23 bacter DETECTE DETECTE informa informa informa 2016 sp Ab D tion in tion in tion in 5:30 PM [Presen source source source ce] in data data data Serum Clostri NOT NOT No No No Nov 23 dium DETECTE DETECTE informa informa informa 2017 diffici D tion in tion in tion in 5:30 PM le source source source toxin data data data A+B [Presen ce] in Stool Cryptos NOT NOT No No No Nov 23 poridiu DETECTE DETECTE informa informa informa 2017 m sp Ag D tion in tion in tion in 5:30 PM source source source [Presen data data data ce] in Unspeci fied specime n Cyclosp NOT NOT No No No Nov 23 ora DETECTE DETECTE informa informa informa 2017 cayetan D tion in tion in tion in 5:30 PM john source source source [Presen data data data ce] in Unspeci fied specime n Escheri NOT NOT No No No Nov 23 jolene DETECTE DETECTE informa informa informa 2017 coli D tion in tion in tion in 5:30 PM [Presen source source source ce] in data data data Unspeci fied specime n by Culture FDA method Escheri NOT NOT No No No Nov 23 jolene DETECTE DETECTE informa informa informa 2017 coli D tion in tion in tion in 5:30 PM [Presen source source source ce] in data data data Unspeci fied specime n by Culture FDA method Escheri NOT NOT No No No Nov 23 jolene DETECTE DETECTE informa informa informa 2017 coli D tion in tion in tion in 5:30 PM Shiga-l source source source kalli data data data toxin 1 assa Escheri NOT NOT No No No Nov 23 jolene DETECTE DETECTE informa informa informa 2017 coli D tion in tion in tion in 5:30 PM [id number] source source source data data data [Presen ce] in Stool by Organis m specifi c culture Entamoe NOT NOT No No No Nov 23 ba DETECTE DETECTE informa informa informa 2017 histoly D tion in tion in tion in 5:30 PM nadeen source source source [Presen data data data ce] in Stool by Trichro me stain Giardia NOT NOT No No No Nov 23 DETECTE DETECTE informa informa informa 2017 lamblia D tion in tion in tion in 5:30 PM Ag source source source [Presen data data data ce] in Stool Norovir NOT NOT No No No Nov 23 us Ag DETECTE DETECTE informa informa informa 2017 [Presen D tion in tion in tion in 5:30 PM ce] in source source source Stool data data data Stool NOT NOT No No No Nov 23 Plesiom DETECTE DETECTE informa informa informa 2017 onas D tion in tion in tion in 5:30 PM shigell source source source oides data data data DNA detec Rotavir NOT NOT No No No Nov 23 us RNA DETECTE DETECTE informa informa informa 2017 detecti D tion in tion in tion in 5:30 PM on by source source source probe data data data and tar Salmone NOT NOT No No No Nov 23 lla sp DETECTE DETECTE informa informa informa 2016 DNA D tion in tion in tion in 5:30 PM [Identi source source source fier] data data data in Unspeci fied specime n by Probe & target amplifi cation method Caliciv NOT NOT No No No Nov 23 irus DETECTE DETECTE informa informa informa 2016 [Identi D tion in tion in tion in 5:30 PM fier] source source source in data data data Stool by Electro n microsc opy Escheri NOT NOT No No No Nov 23 jolene DETECTE DETECTE informa informa informa 2016 coli D tion in tion in tion in 5:30 PM [Presen source source source ce] in data data data Unspeci fied specime n by Culture FDA method Escheri NOT NOT No No No Nov 23 jolene DETECTE DETECTE informa informa informa 2016 coli D tion in tion in tion in 5:30 PM SXT source source source gene+H7 data data data gene [Identi fier] in Unspeci fied specime n by Probe & target amplifi cation method Vibrio NOT NOT No No No Nov 23 cholera DETECTE DETECTE informa informa informa 2016 e DNA D tion in tion in tion in 5:30 PM [Presen source source source ce] in data data data Unspeci fied specime n by Probe & target amplifi cation method Vibrio NOT NOT No No No Nov 23 sp DNA DETECTE DETECTE informa informa informa 2016 [Identi D tion in tion in tion in 5:30 PM fier] source source source in data data data Unspeci fied specime n by Probe & target amplifi cation method Vibrio NOT NOT No No No Nov 23 sp DETECTE DETECTE informa informa informa 2016 identif D tion in tion in tion in 5:30 PM ied in source source source Stool data data data by Hans m specifi c culture Clostridium difficile toxin A+B [Presence] in Stool by Immunoassay Observa Value Referen Units Interpr Notes Date tion ce etation Range SOURCE: STOOL Collected by nurse? Y Hold specimen in OE? N Clostri Negativ Negativ No No Perform Nov 23 dium e e informa informa ed at: 2017 diffici tion in tion in CB - 1:15 PM le source source [facility] toxin data data A+B [place] [Presen 370 ce] in [facility] [facility] [address], by [facility] [place] ssay [id number] Directo r: Loyd Jeong ti PhD, Phone: [phone] Basic metabolic panel in Blood Observa Value Referen Units Interpr Notes Date tion ce etation Range Urea 7 - 18 mg/dL Low No Nov 23 nitrogen informati 2016 6:15 [Mass/vol on in AM ume] in source Serum or data Plasma Calcium 8.5 - mg/dL Low No Nov 23 [Mass/vol 10.1 informati 2017 6:15 ume] in on in AM Serum or source Plasma data Chloride 98 - 107 mmoL/L Normal No Nov 16 [Moles/vo informati 2017 6:15 lume] in on in AM Serum or source Plasma data Carbon 21.0 - mmoL/L Normal No Nov 23 dioxide, 32.0 informati 2017 6:15 total on in AM [Moles/vo source lume] in data Serum or Plasma Creatinin 0.55 - mg/dL High No Nov 23 e 1.02 informati 2017 6:15 [Mass/vol on in AM ume] in source Serum or data Plasma Creatinin 50 - 200 ML/MIN Low No Nov 16 e renal informati 2017 6:15 clearance on in AM source predicted data by Cockcroft -Gault formula Estimated 59- ML/MIN Low REFERENCE Nov 23 RANGE: 2017 6:15 glomerula >60 AM r ML/MIN/1. filtratio 73 SQUARE n rate METERSIf (GF this patient is -A merican, then multiply theresult by 1.210. Glucose 74 - 106 mg/dL High No Nov 16 [Mass/vol informati 2017 6:15 ume] in on in AM Serum or source Plasma data Potassium 3.5 - 5.1 mmoL/L Normal No Nov 16 informati 2017 6:15 [Moles/vo on in AM lume] in source Serum or data Plasma Sodium 136 - 145 mmoL/L Normal No Nov 16 [Moles/vo informati 2017 6:15 lume] in on in AM Serum or source Plasma data CBC W Auto Differential panel in Blood Observa Value Referen Units Interpr Notes Date tion ce etation Range Basophils 0 - 0.2 K/MM3 Normal No Nov 23 informati 2016 6:15 [#/volume on in AM ] in source Blood by data Automated count Basophils 0.1 - 2.0 % Normal No Nov 16 /100 informati 2017 6:15 leukocyte on in AM s in source Blood by data Automated count Eosinophi 0.0 - 0.4 K/mm3 Normal No Nov 16 ls informati 2016 6:15 [#/volume on in AM ] in source Blood by data Automated count Eosinophi 0.1 - % Normal No Nov 16 ls/100 12.0 informati 2016 6:15 leukocyte on in AM s in source Blood by data Automated count Granulocy 1.8 - 7.8 K/mm3 Normal No Nov 16 amee informati 2017 6:15 [#/volume on in AM ] in source Blood by data Automated count Granulocy 37.0 - % Normal No Nov 16 amee/100 80.0 informati 2016 6:15 leukocyte on in AM s in source Blood by data Automated count Hematocri 37.0 - % Low No Nov 23 t [Volume 47.0 informati 2016 6:15 on in AM Fraction] source of Blood data Hemoglobi 12.2 - g/dL Low No Nov 23 n 16.2 informati 2016 6:15 [Mass/vol on in AM ume] in source Blood data Lymphocyt 0.7 - 4.5 K/mm3 Normal No Nov 16 es informati 2017 6:15 [#/volume on in AM ] in source Unspecifi data ed specimen by Automated count Lymphocyt 10 - 50.0 % Normal No Nov 23 es informati 2016 6:15 [#/volume on in AM ] in source Unspecifi data ed specimen by Automated count Erythrocy 27 - 31.2 pg Normal No Nov 16 te mean informati 2017 6:15 corpuscul on in AM ar source hemoglobi data n [Entitic mass] Erythrocy 31.8 - g/dl Normal No Nov 16 te mean 35.4 informati 2017 6:15 corpuscul on in AM ar source hemoglobi data n concentra tion [Mass/vol ume] by Automated count Erythrocy 82.2 - fl Normal No Nov 16 te mean 97.8 informati 2017 6:15 corpuscul on in AM ar volume source [Entitic data volume] by Automated count Monocytes 0.1 - 1.0 K/mm3 Normal No Nov 16 informati 2016 6:15 [#/volume on in AM ] in source Blood by data Automated count Monocytes 1.7 - 9.3 % Normal No Nov 16 /100 informati 2017 6:15 leukocyte on in AM s in source Blood by data Automated count Platelet 7.4 - fl Low No Nov 16 mean 10.4 informati 2017 6:15 volume on in AM [Entitic source volume] data in Blood by Automated count Platelets 142 - 424 K/mm3 Normal No Nov 16 informati 2016 6:15 [#/volume on in AM ] in source Blood data Erythrocy 4.2 - 5.4 M/mm3 Low No Nov 16 amee informati 2017 6:15 [#/volume on in AM ] in source Amniotic data fluid Erythrocy 11.5 - % Normal No Nov 16 te 17.5 informati 2017 6:15 distribut on in AM ion width source [Entitic data volume] by Automated count Leukocyte 4.8 - K/MM3 Normal No Nov 16 s 10.8 informati 2016 6:15 [#/volume on in AM ] in source Blood data Basic metabolic panel in Blood Observa Value Referen Units Interpr Notes Date tion ce etation Range Urea 7 - 18 mg/dL Normal No Nov 15 nitrogen informati 2017 6:20 [Mass/vol on in AM ume] in source Serum or data Plasma Calcium 8.5 - mg/dL Low No Nov 15 [Mass/vol 10.1 informati 2017 6:20 ume] in on in AM Serum or source Plasma data Chloride 98 - 107 mmoL/L Normal No Nov 15 [Moles/vo informati 2017 6:20 lume] in on in AM Serum or source Plasma data Carbon 21.0 - mmoL/L Normal No Nov 15 dioxide, 32.0 informati 2017 6:20 total on in AM [Moles/vo source lume] in data Serum or Plasma Creatinin 0.55 - mg/dL High No Nov 22 e 1.02 informati 2016 6:20 [Mass/vol on in AM ume] in source Serum or data Plasma Creatinin 50 - 200 ML/MIN Low No Nov 22 e renal informati 2017 6:20 clearance on in AM source predicted data by Cockcroft -Gault formula Estimated 59- ML/MIN Low REFERENCE Nov 22 RANGE: 2017 6:20 glomerula >60 AM r ML/MIN/1. filtratio 73 SQUARE n rate METERSIf (GF this patient is -A merican, then multiply theresult by 1.210. Glucose 74 - 106 mg/dL Normal No Nov 22 [Mass/vol informati 2017 6:20 ume] in on in AM Serum or source Plasma data Potassium 3.5 - 5.1 mmoL/L Low alert Nov 22 2016 6:20 [Moles/vo CRITICAL AM lume] in RESULTS Serum or Plasma RESU LTS CALLED TO: HUNTER Correia 11/22/16 0705 Tanisha George Sodium 136 - 145 mmoL/L Normal No Nov 22 [Moles/vo informati 2017 6:20 lume] in on in AM Serum or source Plasma data CBC W Auto Differential panel in Blood Observa Value Referen Units Interpr Notes Date tion ce etation Range Basophils 0 - 0.2 K/MM3 Normal No Nov 22 informati 2016 6:20 [#/volume on in AM ] in source Blood by data Automated count Basophils 0.1 - 2.0 % Normal No Nov 22 informati 2016 6:20 leukocyte on in AM s in source Blood by data Automated count Eosinophi 0.0 - 0.4 K/mm3 Normal No Nov 22 ls informati 2016 6:20 [#/volume on in AM ] in source Blood by data Automated count Eosinophi 0.1 - % Normal No Nov 22 ls/100 12.0 informati 2016 6:20 leukocyte on in AM s in source Blood by data Automated count Granulocy 1.8 - 7.8 K/mm3 Normal No Nov 22 amee informati 2016 6:20 [#/volume on in AM ] in source Blood by data Automated count Granulocy 37.0 - % High No Nov 22 amee/100 80.0 informati 2017 6:20 leukocyte on in AM s in source Blood by data Automated count Hematocri 37.0 - % Low No Nov 15 t [Volume 47.0 informati 2017 6:20 on in AM Fraction] source of Blood data Hemoglobi 12.2 - g/dL Low No Nov 15 n 16.2 informati 2017 6:20 [Mass/vol on in AM ume] in source Blood data Lymphocyt 0.7 - 4.5 K/mm3 Normal No Nov 15 es informati 2017 6:20 [#/volume on in AM ] in source Unspecifi data ed specimen by Automated count Lymphocyt 10 - 50.0 % Normal No Nov 15 es informati 2017 6:20 [#/volume on in AM ] in source Unspecifi data ed specimen by Automated count Erythrocy 27 - 31.2 pg Normal No Nov 15 te mean informati 2017 6:20 corpuscul on in AM ar source hemoglobi data n [Entitic mass] Erythrocy 31.8 - g/dl Normal No Nov 15 te mean 35.4 informati 2017 6:20 corpuscul on in AM ar source hemoglobi data n concentra tion [Mass/vol ume] by Automated count Erythrocy 82.2 - fl Normal No Nov 15 te mean 97.8 informati 2017 6:20 corpuscul on in AM ar volume source [Entitic data volume] by Automated count Monocytes 0.1 - 1.0 K/mm3 Normal No Nov 15 informati 2017 6:20 [#/volume on in AM ] in source Blood by data Automated count Monocytes 1.7 - 9.3 % Normal No Kevin 15 /100 informati 2017 6:20 leukocyte on in AM s in source Blood by data Automated count Platelet 7.4 - fl Low No Nov 15 mean 10.4 informati 2017 6:20 volume on in AM [Entitic source volume] data in Blood by Automated count Platelets 142 - 424 K/mm3 Normal No Nov 15 informati 2017 6:20 [#/volume on in AM ] in source Blood data Erythrocy 4.2 - 5.4 M/mm3 Low No Nov 15 amee informati 2017 6:20 [#/volume on in AM ] in source Amniotic data fluid Erythrocy 11.5 - % Normal No Nov 15 te 17.5 informati 2017 6:20 distribut on in AM ion width source [Entitic data volume] by Automated count Leukocyte 4.8 - K/MM3 Normal No Nov 15 s 10.8 informati 2017 6:20 [#/volume on in AM ] in source Blood data CBC W Auto Differential panel in Blood Observa Value Referen Units Interpr Notes Date tion ce etation Range Basophils 0 - 0.2 K/MM3 Normal No Nov 14 informati 2016 6:25 [#/volume on in AM ] in source Blood by data Automated count Basophils 0.1 - 2.0 % Normal No Nov 14 /100 informati 2017 6:25 leukocyte on in AM s in source Blood by data Automated count Eosinophi 0.0 - 0.4 K/mm3 Normal No Nov 14 ls informati 2017 6:25 [#/volume on in AM ] in source Blood by data Automated count Eosinophi 0.1 - % Normal No Nov 14 ls/100 12.0 informati 2017 6:25 leukocyte on in AM s in source Blood by data Automated count Granulocy 1.8 - 7.8 K/mm3 Normal No Nov 14 amee informati 2017 6:25 [#/volume on in AM ] in source Blood by data Automated count Granulocy 37.0 - % High No Nov 14 amee/100 80.0 informati 2017 6:25 leukocyte on in AM s in source Blood by data Automated count Hematocri 37.0 - % Low No Nov 14 t [Volume 47.0 informati 2017 6:25 on in AM Fraction] source of Blood data Hemoglobi 12.2 - g/dL Low No Nov 14 n 16.2 informati 2016 6:25 [Mass/vol on in AM ume] in source Blood data Lymphocyt 0.7 - 4.5 K/mm3 Normal No Nov 14 es informati 2017 6:25 [#/volume on in AM ] in source Unspecifi data ed specimen by Automated count Lymphocyt 10 - 50.0 % Normal No Nov 14 es informati 2017 6:25 [#/volume on in AM ] in source Unspecifi data ed specimen by Automated count Erythrocy 27 - 31.2 pg Normal No Nov 14 te mean informati 2016 6:25 corpuscul on in AM ar source hemoglobi data n [Entitic mass] Erythrocy 31.8 - g/dl Normal No Nov 14 te mean 35.4 informati 2016 6:25 corpuscul on in AM ar source hemoglobi data n concentra tion [Mass/vol ume] by Automated count Erythrocy 82.2 - fl Normal No Nov 14 te mean 97.8 informati 2017 6:25 corpuscul on in AM ar volume source [Entitic data volume] by Automated count Monocytes 0.1 - 1.0 K/mm3 Normal No Kevin 14 informati 2017 6:25 [#/volume on in AM ] in source Blood by data Automated count Monocytes 1.7 - 9.3 % Normal No Nov 14 /100 informati 2017 6:25 leukocyte on in AM s in source Blood by data Automated count Platelet 7.4 - fl Low No Nov 14 mean 10.4 informati 2017 6:25 volume on in AM [Entitic source volume] data in Blood by Automated count Platelets 142 - 424 K/mm3 No No Nov 14 informati informati 2017 6:25 [#/volume on in on in AM ] in source source Blood data data Erythrocy 4.2 - 5.4 M/mm3 Low No Nov 14 amee informati 2017 6:25 [#/volume on in AM ] in source Amniotic data fluid Erythrocy 11.5 - % Normal No Nov 14 te 17.5 informati 2017 6:25 distribut on in AM ion width source [Entitic data volume] by Automated count Leukocyte 4.8 - K/MM3 No No Nov 14 s 10.8 informati informati 2017 6:25 [#/volume on in on in AM ] in source source Blood data data Basic metabolic panel in Blood Observa Value Referen Units Interpr Notes Date tion ce etation Range Urea 7 - 18 mg/dL Normal No Nov 14 nitrogen informati 2017 6:25 [Mass/vol on in AM ume] in source Serum or data Plasma Calcium 8.5 - mg/dL Low No Nov 14 [Mass/vol 10.1 informati 2017 6:25 ume] in on in AM Serum or source Plasma data Chloride 98 - 107 mmoL/L Normal No Nov 14 [Moles/vo informati 2017 6:25 lume] in on in AM Serum or source Plasma data Carbon 21.0 - mmoL/L Normal No Nov 14 dioxide, 32.0 informati 2017 6:25 total on in AM [Moles/vo source lume] in data Serum or Plasma Creatinin 0.55 - mg/dL High No Nov 14 e 1.02 informati 2017 6:25 [Mass/vol on in AM ume] in source Serum or data Plasma Creatinin 50 - 200 ML/MIN Low No Nov 14 e renal informati 2016 6:25 clearance on in AM source predicted data by Cockcroft -Gault formula Estimated 59- ML/MIN Low REFERENCE Nov 21 RANGE: 2017 6:25 glomerula >60 AM r ML/MIN/1. filtratio 73 SQUARE n rate METERSIf (GF this patient is -A merican, then multiply theresult by 1.210. Glucose 74 - 106 mg/dL Normal No Nov 21 [Mass/vol informati 2016 6:25 ume] in on in AM Serum or source Plasma data Potassium 3.5 - 5.1 mmoL/L Low alert Nov 21 2016 6:25 [Moles/vo CRITICAL AM lume] in RESULTS Serum or Plasma RESU LTS CALLED TO: HUNTER Correia 11/21/16 0707 Tanisha George Sodium 136 - 145 mmoL/L Normal No Nov 21 [Moles/vo informati 2016 6:25 lume] in on in AM Serum or source Plasma data Lactate [Moles/volume] in Blood Observa Value Referen Units Interpr Notes Date tion ce etation Range Lactate 0.4 - 2.0 mmol/L Normal No Nov 20 [Moles/vo informati 2016 lume] in on in 10:20 AM Blood source data CBC W Auto Differential panel in Blood Observa Value Referen Units Interpr Notes Date tion ce etation Range Basophils 0 - 0.2 K/MM3 Normal No Nov 20 inform2016 9:10 [#/volume on in AM ] in source Blood by data Automated count Basophils 0.1 - 2.0 % Normal No Nov 20 informati 2016 9:10 leukocyte on in AM s in source Blood by data Automated count Eosinophi 0.0 - 0.4 K/mm3 Normal No Nov 20 ls informati 2016 9:10 [#/volume on in AM ] in source Blood by data Automated count Eosinophi 0.1 - % Normal No Nov 20 ls/100 12.0 informati 2016 9:10 leukocyte on in AM s in source Blood by data Automated count Granulocy 1.8 - 7.8 K/mm3 High No Nov 20 amee informati 2017 9:10 [#/volume on in AM ] in source Blood by data Automated count Granulocy 37.0 - % High No Nov 20 amee/100 80.0 informati 2017 9:10 leukocyte on in AM s in source Blood by data Automated count Hematocri 37.0 - % Normal No Nov 20 t [Volume 47.0 informati 2017 9:10 on in AM Fraction] source of Blood data Hemoglobi 12.2 - g/dL Normal No Nov 20 n 16.2 informati 2017 9:10 [Mass/vol on in AM ume] in source Blood data Lymphocyt 0.7 - 4.5 K/mm3 Normal No Nov 20 es informati 2016 9:10 [#/volume on in AM ] in source Unspecifi data ed specimen by Automated count Lymphocyt 10 - 50.0 % Normal No Nov 20 es informati 2016 9:10 [#/volume on in AM ] in source Unspecifi data ed specimen by Automated count Erythrocy 27 - 31.2 pg Normal No Nov 20 te mean informati 2016 9:10 corpuscul on in AM ar source hemoglobi data n [Entitic mass] Erythrocy 31.8 - g/dl Normal No Nov 20 te mean 35.4 informati 2017 9:10 corpuscul on in AM ar source hemoglobi data n concentra tion [Mass/vol ume] by Automated count Erythrocy 82.2 - fl Normal No Nov 20 te mean 97.8 informati 2016 9:10 corpuscul on in AM ar volume source [Entitic data volume] by Automated count Monocytes 0.1 - 1.0 K/mm3 Normal No Nov 20 informati 2017 9:10 [#/volume on in AM ] in source Blood by data Automated count Monocytes 1.7 - 9.3 % Normal No Nov 20 /100 informati 2017 9:10 leukocyte on in AM s in source Blood by data Automated count Platelet 7.4 - fl Normal No Nov 20 mean 10.4 informati 2017 9:10 volume on in AM [Entitic source volume] data in Blood by Automated count Platelets 142 - 424 K/mm3 No No Nov 20 informati informati 2017 9:10 [#/volume on in on in AM ] in source source Blood data data Erythrocy 4.2 - 5.4 M/mm3 Normal No Nov 20 amee informati 2016 9:10 [#/volume on in AM ] in source Amniotic data fluid Erythrocy 11.5 - % Normal No Nov 20 te 17.5 informati 2017 9:10 distribut on in AM ion width source [Entitic data volume] by Automated count Leukocyte 4.8 - K/MM3 High No Nov 13 s 10.8 informati 2016 9:10 [#/volume on in AM ] in source Blood data Differential panel, method unspecified - Observa Value Referen Units Interpr Notes Date tion ce etation Range LYMPH 23 10 - 50 % Normal No Nov 13 inform2016 tion in 9:10 AM source data Monocytes 2 - 9 % High No Nov 13 /100 informati 2017 9:10 leukocyte on in AM s in source Blood by data Automated count Platele NORMAL No No No No Nov 20 ts informa informa informa inform2016 [Presen tion in tion in tion in tion in 9:10 AM ce] in source source source source Blood data data data data by Light microsc opy Neutrophi 42 - 76 % Normal No Nov 20 ls ati 2016 9:10 [#/volume on in AM ] in source Blood by data Automated count Cells No #CELLS No No Nov 20 Counted informati informati informati 2016 9:10 Total [#] on in on in on in AM in Blood source source source data data data Tobramycin [Mass/volume] in Serum or Plasma Observa Value Referen Units Interpr Notes Date ti ce etation Range DATE OF LAST DOSE: 11/15/16 TIME OF LAST DOSE: 0600 Tobramyci No ug/mL No No Nov 9 n informati informati informati 2016 6:25 [Mass/vol on in on in on in AM ume] in source source source Serum or data data data Plasma Basic metabolic panel in Blood Observa Value Referen Units Interpr Notes Date tion ce etation Range Urea 7 - 18 mg/dL Low No Nov 9 nitrogen informati 2016 6:25 [Mass/vol on in AM ume] in source Serum or data Plasma Calcium 8.5 - mg/dL Normal No Nov 9 [Mass/vol 10.1 informati 2017 6:25 ume] in on in AM Serum or source Plasma data Chloride 98 - 107 mmoL/L Normal No Nov 9 [Moles/vo informati 2017 6:25 lume] in on in AM Serum or source Plasma data Carbon 21.0 - mmoL/L Normal No Nov 16 dioxide, 32.0 informati 2017 6:25 total on in AM [Moles/vo source lume] in data Serum or Plasma Creatinin 0.55 - mg/dL Normal No Nov 16 e 1.02 informati 2017 6:25 [Mass/vol on in AM ume] in source Serum or data Plasma Creatinin 50 - 200 ML/MIN Normal No Nov 16 e renal informati 2016 6:25 clearance on in AM source predicted data by Cockcroft -Gault formula Estimated 59- ML/MIN No REFERENCE Nov 16 informati RANGE: 2017 6:25 glomerula on in >60 AM r source ML/MIN/1. filtratio data 73 SQUARE n rate METERSIf (GF this patient is -A merican, then multiply theresult by 1.210. Glucose 74 - 106 mg/dL Normal No Nov 16 [Mass/vol informati 2016 6:25 ume] in on in AM Serum or source Plasma data Potassium 3.5 - 5.1 mmoL/L Normal No Nov 16 informati 2016 6:25 [Moles/vo on in AM lume] in source Serum or data Plasma Sodium 136 - 145 mmoL/L Normal No Nov 16 [Moles/vo informati 2016 6:25 lume] in on in AM Serum or source Plasma data CBC W Auto Differential panel in Blood Observa Value Referen Units Interpr Notes Date tion ce etation Range Basophils 0 - 0.2 K/MM3 Normal No Nov 16 inform2016 6:25 [#/volume on in AM ] in source Blood by data Automated count Basophils 0.1 - 2.0 % Normal No Nov 16 /100 informati 2017 6:25 leukocyte on in AM s in source Blood by data Automated count Eosinophi 0.0 - 0.4 K/mm3 Normal No Nov 16 ls informati 2016 6:25 [#/volume on in AM ] in source Blood by data Automated count Eosinophi 0.1 - % Normal No Nov 16 ls/100 12.0 informati 2017 6:25 leukocyte on in AM s in source Blood by data Automated count Granulocy 1.8 - 7.8 K/mm3 Normal No Nov 16 amee informati 2016 6:25 [#/volume on in AM ] in source Blood by data Automated count Granulocy 37.0 - % Normal No Nov 16 amee/100 80.0 informati 2017 6:25 leukocyte on in AM s in source Blood by data Automated count Hematocri 37.0 - % Normal No Nov 16 t [Volume 47.0 informati 2017 6:25 on in AM Fraction] source of Blood data Hemoglobi 12.2 - g/dL Normal No Nov 9 n 16.2 informati 2017 6:25 [Mass/vol on in AM ume] in source Blood data Lymphocyt 0.7 - 4.5 K/mm3 Normal No Nov 9 es informati 2017 6:25 [#/volume on in AM ] in source Unspecifi data ed specimen by Automated count Lymphocyt 10 - 50.0 % Normal No Nov 16 es informati 2017 6:25 [#/volume on in AM ] in source Unspecifi data ed specimen by Automated count Erythrocy 27 - 31.2 pg Normal No Nov 16 te mean informati 2017 6:25 corpuscul on in AM ar source hemoglobi data n [Entitic mass] Erythrocy 31.8 - g/dl Normal No Nov 16 te mean 35.4 informati 2017 6:25 corpuscul on in AM ar source hemoglobi data n concentra tion [Mass/vol ume] by Automated count Erythrocy 82.2 - fl Normal No Nov 16 te mean 97.8 informati 2017 6:25 corpuscul on in AM ar volume source [Entitic data volume] by Automated count Monocytes 0.1 - 1.0 K/mm3 Normal No Nov 9 informati 2017 6:25 [#/volume on in AM ] in source Blood by data Automated count Monocytes 1.7 - 9.3 % Normal No Kvein 9 /100 informati 2017 6:25 leukocyte on in AM s in source Blood by data Automated count Platelet 7.4 - fl Low No Nov 9 mean 10.4 informati 2017 6:25 volume on in AM [Entitic source volume] data in Blood by Automated count Platelets 142 - 424 K/mm3 No No Nov 9 informati informati 2017 6:25 [#/volume on in on in AM ] in source source Blood data data Erythrocy 4.2 - 5.4 M/mm3 Low No Nov 9 amee informati 2017 6:25 [#/volume on in AM ] in source Amniotic data fluid Erythrocy 11.5 - % Normal No Nov 9 te 17.5 informati 2017 6:25 distribut on in AM ion width source [Entitic data volume] by Automated count Leukocyte 4.8 - K/MM3 Normal No Nov 9 s 10.8 informati 2017 6:25 [#/volume on in AM ] in source Blood data CBC W Auto Differential panel in Blood Observa Value Referen Units Interpr Notes Date tion ce etation Range Basophils 0 - 0.2 K/MM3 Normal No Nov 7 informati 2016 7:10 [#/volume on in AM ] in source Blood by data Automated count Basophils 0.1 - 2.0 % Normal No Nov 7 /100 informati 2017 7:10 leukocyte on in AM s in source Blood by data Automated count Eosinophi 0.0 - 0.4 K/mm3 Normal No Nov 7 ls informati 2016 7:10 [#/volume on in AM ] in source Blood by data Automated count Eosinophi 0.1 - % Normal No Nov 7 ls/100 12.0 informati 2016 7:10 leukocyte on in AM s in source Blood by data Automated count Granulocy 1.8 - 7.8 K/mm3 Normal No Nov 7 amee informati 2017 7:10 [#/volume on in AM ] in source Blood by data Automated count Granulocy 37.0 - % Normal No Nov 7 amee/100 80.0 informati 2017 7:10 leukocyte on in AM s in source Blood by data Automated count Hematocri 37.0 - % Low No Nov 14 t [Volume 47.0 informati 2016 7:10 on in AM Fraction] source of Blood data Hemoglobi 12.2 - g/dL Normal No Nov 14 n 16.2 informati 2016 7:10 [Mass/vol on in AM ume] in source Blood data Lymphocyt 0.7 - 4.5 K/mm3 Normal No Nov 7 es informati 2017 7:10 [#/volume on in AM ] in source Unspecifi data ed specimen by Automated count Lymphocyt 10 - 50.0 % Normal No Nov 14 es informati 2017 7:10 [#/volume on in AM ] in source Unspecifi data ed specimen by Automated count Erythrocy 27 - 31.2 pg Normal No Nov 14 te mean informati 2016 7:10 corpuscul on in AM ar source hemoglobi data n [Entitic mass] Erythrocy 31.8 - g/dl Normal No Kevin 7 te mean 35.4 informati 2016 7:10 corpuscul on in AM ar source hemoglobi data n concentra tion [Mass/vol ume] by Automated count Erythrocy 82.2 - fl Normal No Nov 7 te mean 97.8 informati 2016 7:10 corpuscul on in AM ar volume source [Entitic data volume] by Automated count Monocytes 0.1 - 1.0 K/mm3 Normal No Nov 7 informati 2016 7:10 [#/volume on in AM ] in source Blood by data Automated count Monocytes 1.7 - 9.3 % Normal No Nov 7 /100 informati 2017 7:10 leukocyte on in AM s in source Blood by data Automated count Platelet 7.4 - fl Normal No Nov 7 mean 10.4 informati 2017 7:10 volume on in AM [Entitic source volume] data in Blood by Automated count Platelets 142 - 424 K/mm3 No No Nov 7 informati informati 2017 7:10 [#/volume on in on in AM ] in source source Blood data data Erythrocy 4.2 - 5.4 M/mm3 Low No Nov 7 amee informati 2017 7:10 [#/volume on in AM ] in source Amniotic data fluid Erythrocy 11.5 - % Normal No Nov 7 te 17.5 informati 2017 7:10 distribut on in AM ion width source [Entitic data volume] by Automated count Leukocyte 4.8 - K/MM3 No No Nov 7 s 10.8 informati informati 2017 7:10 [#/volume on in on in AM ] in source source Blood data data Basic metabolic panel in Blood Observa Value Referen Units Interpr Notes Date tion ce etation Range Urea 7 - 18 mg/dL Low No Nov 7 nitrogen informati 2017 7:10 [Mass/vol on in AM ume] in source Serum or data Plasma Calcium 8.5 - mg/dL Normal No Nov 7 [Mass/vol 10.1 informati 2017 7:10 ume] in on in AM Serum or source Plasma data Chloride 98 - 107 mmoL/L Normal No Nov 7 [Moles/vo informati 2017 7:10 lume] in on in AM Serum or source Plasma data Carbon 21.0 - mmoL/L Normal No Nov 7 dioxide, 32.0 informati 2017 7:10 total on in AM [Moles/vo source lume] in data Serum or Plasma Creatinin 0.55 - mg/dL Normal No Kevin 7 e 1.02 informati 2017 7:10 [Mass/vol on in AM ume] in source Serum or data Plasma Creatinin 50 - 200 ML/MIN Normal No Kevin 7 e renal informati 2017 7:10 clearance on in AM source predicted data by Cockcroft -Gault formula Estimated 59- ML/MIN No REFERENCE Kevin 7 informati RANGE: 2017 7:10 glomerula on in >60 AM r source ML/MIN/1. filtratio data 73 SQUARE n rate METERSIf (GF this patient is -A merican, then multiply theresult by 1.210. Glucose 74 - 106 mg/dL Normal No Nov 7 [Mass/vol informati 2016 7:10 ume] in on in AM Serum or source Plasma data Potassium 3.5 - 5.1 mmoL/L Normal No Nov 7 informati 2016 7:10 [Moles/vo on in AM lume] in source Serum or data Plasma Sodium 136 - 145 mmoL/L Low No Nov 7 [Moles/vo informati 2016 7:10 lume] in on in AM Serum or source Plasma data Hemoglobin & Hematocrit panel in Blood Observa Value Referen Units Interpr Notes Date tion ce etation Range Hematocri 37.0 - % Low No Kevin 6 t [Volume 47.0 informati 2017 4:58 on in PM Fraction] source of Blood data Hemoglobi 12.2 - g/dL Low No Kevin 6 n 16.2 informati 2017 4:58 [Mass/vol on in PM ume] in source Blood data Blood product special preparation [Type] Observa Value Referen Units Interpr Notes Date tion ce etation Range Blood BLOOD No No No BLOOD Kevin 6 product UNIT informa informa informa UNIT # 2017 RELEASE tion in tion in tion in : W0382 1:51 PM special source source source 17 data data data [id number] prepara RELEASE tion D [Type] Whitney Cadet POSITIV E Blood product special preparation [Type] Observa Value Referen Units Interpr Notes Date tion ce etation Range Blood BLOOD No No No BLOOD Kevin 6 product UNIT informa informa informa UNIT # 2017 RELEASE tion in tion in tion in : W0382 10:58 special source source source 17 AM data data data [id number] prepara RELEASE tion D [Type] [place] willinghamJose carola B POS Blood type & Crossmatch panel in Blood Observa Value Referen Units Interpr Notes Date tion ce etation Range Hold? N Transfuse now? 2 UNITS NOW Major COMPAT No No No No Nov 13 crossma informa informa informa informa 2017 tch tion in tion in tion in tion in 9:05 AM [interp source source source source retatio data data data data n] Major COMPAT No No No No Nov 13 crossma informa informa informa informa 2017 tch tion in tion in tion in tion in 9:05 AM [interp source source source source retatio data data data data n] by Immedia te spin Blood type & Crossmatch panel in Blood Observa Value Referen Units Interpr Notes Date tion ce etation Range Hold? N Transfuse now? 2 UNITS NOW Blood NEGATIV NEGATIV No No No Nov 13 group E E informa informa informa 2017 antibod tion in tion in tion in 9:05 AM y source source source screen data data data [Presen ce] in Serum or Plasma Rh POSITIV No No No No Nov 13 [Type] E informa informa informa informa 2017 in tion in tion in tion in tion in 9:05 AM Blood source source source source data data data data ABO B No No No No Nov 13 group informa informa informa informa 2017 [Type] tion in tion in tion in tion in 9:05 AM in source source source source Blood data data data data Blood type & Crossmatch panel in Blood Observa Value Referen Units Interpr Notes Date tion ce etation Range Hold? N Transfuse now? 2 UNITS NOW Major COMPAT No No No No Nov 13 crossma informa informa informa informa 2017 tch tion in tion in tion in tion in 9:05 AM [interp source source source source retatio data data data data n] Major COMPAT No No No No Nov 13 crossma informa informa informa informa 2017 tch tion in tion in tion in tion in 9:05 AM [interp source source source source retatio data data data data n] by Immedia te spin CBC W Auto Differential panel in Blood Observa Value Referen Units Interpr Notes Date tion ce etation Range Basophils 0 - 0.2 K/MM3 Normal No Nov 13 inform2016 6:05 [#/volume on in AM ] in source Blood by data Automated count Basophils 0.1 - 2.0 % Normal No Nov 13 informati 2017 6:05 leukocyte on in AM s in source Blood by data Automated count Eosinophi 0.0 - 0.4 K/mm3 Normal No Nov 13 ls informati 2017 6:05 [#/volume on in AM ] in source Blood by data Automated count Eosinophi 0.1 - % Normal No Nov 13 ls/100 12.0 informati 2017 6:05 leukocyte on in AM s in source Blood by data Automated count Granulocy 1.8 - 7.8 K/mm3 Normal No Nov 13 amee informati 2017 6:05 [#/volume on in AM ] in source Blood by data Automated count Granulocy 37.0 - % Normal No Nov 13 amee/ 80.0 informati 2016 6:05 leukocyte on in AM s in source Blood by data Automated count Hematocri 37.0 - % Low alert Nov 13 t [Volume 47.0 2016 6:05 CRITICAL AM Fraction] RESULTS of Blood RESU LTS CALLED TO: [facility] 11/13/16 0645 Lakshmi Garner e Hemoglobi 12.2 - g/dL Low alert Nov 13 n 16.2 2016 6:05 [Mass/vol CRITICAL AM ume] in RESULTS Blood RESU LTS CALLED TO: [facility] 11/13/16 0644 Lakshmi Garner e Lymphocyt 0.7 - 4.5 K/mm3 Normal No Nov 13 es informati 2016 6:05 [#/volume on in AM ] in source Unspecifi data ed specimen by Automated count Lymphocyt 10 - 50.0 % Normal No Nov 13 es informati 2016 6:05 [#/volume on in AM ] in source Unspecifi data ed specimen by Automated count Erythrocy 27 - 31.2 pg Normal No Kevin 6 te mean informati 2017 6:05 corpuscul on in AM ar source hemoglobi data n [Entitic mass] Erythrocy 31.8 - g/dl Normal No Kevin 6 te mean 35.4 informati 2017 6:05 corpuscul on in AM ar source hemoglobi data n concentra tion [Mass/vol ume] by Automated count Erythrocy 82.2 - fl Normal No Kevin 6 te mean 97.8 informati 2017 6:05 corpuscul on in AM ar volume source [Entitic data volume] by Automated count Monocytes 0.1 - 1.0 K/mm3 Normal No Kevin 6 informati 2017 6:05 [#/volume on in AM ] in source Blood by data Automated count Monocytes 1.7 - 9.3 % High No Kevin 6 /100 informati 2017 6:05 leukocyte on in AM s in source Blood by data Automated count Platelet 7.4 - fl Low No Kevin 6 mean 10.4 informati 2017 6:05 volume on in AM [Entitic source volume] data in Blood by Automated count Platelets 142 - 424 K/mm3 Low No Kevin 6 informati 2017 6:05 [#/volume on in AM ] in source Blood data Erythrocy 4.2 - 5.4 M/mm3 Low No Kevin 6 amee informati 2017 6:05 [#/volume on in AM ] in source Amniotic data fluid Erythrocy 11.5 - % High No Kevin 6 te 17.5 informati 2017 6:05 distribut on in AM ion width source [Entitic data volume] by Automated count Leukocyte 4.8 - K/MM3 Low No Kevin 6 s 10.8 informati 2017 6:05 [#/volume on in AM ] in source Blood data Basic metabolic panel in Blood Observa Value Referen Units Interpr Notes Date tion ce etation Range Urea 7 - 18 mg/dL Low No Kevin 6 nitrogen informati 2017 6:05 [Mass/vol on in AM ume] in source Serum or data Plasma Calcium 8.5 - mg/dL Low No Kevin 6 [Mass/vol 10.1 informati 2017 6:05 ume] in on in AM Serum or source Plasma data Chloride 98 - 107 mmoL/L Normal No Kevin 6 [Moles/vo informati 2017 6:05 lume] in on in AM Serum or source Plasma data Carbon 21.0 - mmoL/L Normal No Nov 13 dioxide, 32.0 informati 2017 6:05 total on in AM [Moles/vo source lume] in data Serum or Plasma Creatinin 0.55 - mg/dL Normal No Nov 13 e 1.02 informati 2017 6:05 [Mass/vol on in AM ume] in source Serum or data Plasma Creatinin 50 - 200 ML/MIN Normal No Nov 13 e renal informati 2017 6:05 clearance on in AM source predicted data by Cockcroft -Gault formula Estimated 59- ML/MIN No REFERENCE Nov 13 informati RANGE: 2017 6:05 glomerula on in >60 AM r source ML/MIN/1. filtratio data 73 SQUARE n rate METERSIf (GF this patient is -A merican, then multiply theresult by 1.210. Glucose 74 - 106 mg/dL Normal No Nov 6 [Mass/vol informati 2016 6:05 ume] in on in AM Serum or source Plasma data Potassium 3.5 - 5.1 mmoL/L Low No Nov 13 informati 2016 6:05 [Moles/vo on in AM lume] in source Serum or data Plasma Sodium 136 - 145 mmoL/L Normal No Nov 6 [Moles/vo informati 2017 6:05 lume] in on in AM Serum or source Plasma data Tobramycin [Mass/volume] in Serum or Plasma Observa Value Referen Units Interpr Notes Date tion ce etation Range COMMENTS TO HOTEL REGISTRATION CLERK: DO NOT NEED TO CALL PHARMACIST PARTS INTERPRETER WITH LEVEL DATE OF LAST DOSE: 11/12/16 TIME OF LAST DOSE: 0630 Tobramyci No ug/mL No No Nov 12 n informati informati informati 2017 7:36 [Mass/vol on in on in on in PM ume] in source source source Serum or data data data Plasma Tobramycin [Mass/volume] in Serum or Plasma Observa Value Referen Units Interpr Notes Date tion ce etation Range COMMENTS TO HOTEL REGISTRATION CLERK: DO NOT NEED TO CALL PHARMACIST PARTS INTERPRETER WITH LEVEL DATE OF LAST DOSE: 11/12/16 TIME OF LAST DOSE: 0630 Tobramyci No ug/mL No Nov 12 n informati informati NOTIFICAT 2017 1:00 [Mass/vol on in on in ION PM ume] in source source RESULT Serum or data data Plasma Basic metabolic panel in Blood Observa Value Referen Units Interpr Notes Date tion ce etation Range Urea 7 - 18 mg/dL Low No Kevin 4 nitrogen informati 2016 6:00 [Mass/vol on in AM ume] in source Serum or data Plasma Calcium 8.5 - mg/dL Low No Kevin 4 [Mass/vol 10.1 informati 2016 6:00 ume] in on in AM Serum or source Plasma data Chloride 98 - 107 mmoL/L Low No Kevin 4 [Moles/vo informati 2017 6:00 lume] in on in AM Serum or source Plasma data Carbon 21.0 - mmoL/L Normal No Kevin 4 dioxide, 32.0 informati 2016 6:00 total on in AM [Moles/vo source lume] in data Serum or Plasma Creatinin 0.55 - mg/dL Normal No Kevin 4 e 1.02 informati 2017 6:00 [Mass/vol on in AM ume] in source Serum or data Plasma Creatinin 50 - 200 ML/MIN Normal No Nov 4 e renal informati 2016 6:00 clearance on in AM source predicted data by Cockcroft -Gault formula Estimated 59- ML/MIN No REFERENCE Kevin 4 informati RANGE: 2017 6:00 glomerula on in >60 AM r source ML/MIN/1. filtratio data 73 SQUARE n rate METERSIf (GF this patient is -A merican, then multiply theresult by 1.210. Glucose 74 - 106 mg/dL Normal No Kevin 4 [Mass/vol informati 2016 6:00 ume] in on in AM Serum or source Plasma data Potassium 3.5 - 5.1 mmoL/L Low No Kevin 4 informati 2017 6:00 [Moles/vo on in AM lume] in source Serum or data Plasma Sodium 136 - 145 mmoL/L Low No Kevin 4 [Moles/vo informati 2017 6:00 lume] in on in AM Serum or source Plasma data CBC W Auto Differential panel in Blood Observa Value Referen Units Interpr Notes Date tion ce etation Range Basophils 0 - 0.2 K/MM3 Normal No Kevin 4 informati 2016 6:00 [#/volume on in AM ] in source Blood by data Automated count Basophils 0.1 - 2.0 % Normal No Kevin 4 /100 informati 2017 6:00 leukocyte on in AM s in source Blood by data Automated count Eosinophi 0.0 - 0.4 K/mm3 Normal No Nov 4 ls informati 2016 6:00 [#/volume on in AM ] in source Blood by data Automated count Eosinophi 0.1 - % Normal No Nov 11 ls/100 12.0 informati 2016 6:00 leukocyte on in AM s in source Blood by data Automated count Granulocy 1.8 - 7.8 K/mm3 Low No Nov 4 amee informati 2016 6:00 [#/volume on in AM ] in source Blood by data Automated count Granulocy 37.0 - % Normal No Nov 11 amee/100 80.0 informati 2016 6:00 leukocyte on in AM s in source Blood by data Automated count Hematocri 37.0 - % Low alert Nov 11 t [Volume 47.0 2017 6:00 CRITICAL AM Fraction] RESULTS of Blood RESU LTS CALLED TO: Aisha JEFF RAMOS 11/11/16 0621 [place] Hemoglobi 12.2 - g/dL Low alert Nov 11 n 16.2 2016 6:00 [Mass/vol CRITICAL AM ume] in RESULTS Blood RESU LTS CALLED TO: Aisha JEFF RAMOS 11/11/[address] Lymphocyt 0.7 - 4.5 K/mm3 Normal No Nov 11 es informati 2016 6:00 [#/volume on in AM ] in source Unspecifi data ed specimen by Automated count Lymphocyt 10 - 50.0 % Normal No Nov 11 es informati 2016 6:00 [#/volume on in AM ] in source Unspecifi data ed specimen by Automated count Erythrocy 27 - 31.2 pg Normal No Nov 11 te mean informati 2016 6:00 corpuscul on in AM ar source hemoglobi data n [Entitic mass] Erythrocy 31.8 - g/dl Normal No Nov 11 te mean 35.4 informati 2016 6:00 corpuscul on in AM ar source hemoglobi data n concentra tion [Mass/vol ume] by Automated count Erythrocy 82.2 - fl Normal No Nov 4 te mean 97.8 informati 2016 6:00 corpuscul on in AM ar volume source [Entitic data volume] by Automated count Monocytes 0.1 - 1.0 K/mm3 Normal No Kevin 4 inform2016 6:00 [#/volume on in AM ] in source Blood by data Automated count Monocytes 1.7 - 9.3 % High No Kevin 4 /100 informati 2016 6:00 leukocyte on in AM s in source Blood by data Automated count Platelet 7.4 - fl Low No Kevin 4 mean 10.4 informati 2017 6:00 volume on in AM [Entitic source volume] data in Blood by Automated count Platelets 142 - 424 K/mm3 Low No Kevin 4 informati 2017 6:00 [#/volume on in AM ] in source Blood data Erythrocy 4.2 - 5.4 M/mm3 Low No Kevin 4 amee informati 2016 6:00 [#/volume on in AM ] in source Amniotic data fluid Erythrocy 11.5 - % High No Nov 4 te 17.5 informati 2016 6:00 distribut on in AM ion width source [Entitic data volume] by Automated count Leukocyte 4.8 - K/MM3 Low No Kevin 4 s 10.8 informati 2016 6:00 [#/volume on in AM ] in source Blood data Gentamicin [Mass/volume] in Serum or Plasma --trough Observa Value Referen Units Interpr Notes Date tion ce etation Range Gentamici 0 - 2.0 ug/ml High Nov 3 n alert NOTIFICAT 2017 6:40 [Mass/vol ION PM ume] in RESULT Serum or Plasma --trough CBC W Auto Differential panel in Blood Observa Value Referen Units Interpr Notes Date tion ce etation Range Basophils 0 - 0.2 K/MM3 Normal No Kevin 3 informati 2016 8:32 [#/volume on in AM ] in source Blood by data Automated count Basophils 0.1 - 2.0 % Normal No Kevin 3 100 informati 2016 8:32 leukocyte on in AM s in source Blood by data Automated count Eosinophi 0.0 - 0.4 K/mm3 Normal No Kevin 3 ls informati 2016 8:32 [#/volume on in AM ] in source Blood by data Automated count Eosinophi 0.1 - % Normal No Kevin 3 ls/100 12.0 informati 2016 8:32 leukocyte on in AM s in source Blood by data Automated count Granulocy 1.8 - 7.8 K/mm3 Low alert No Nov 10 amee informati 2016 8:32 [#/volume on in AM ] in source Blood by data Automated count Granulocy 37.0 - % Normal No Nov 10 amee/100 80.0 informati 2016 8:32 leukocyte on in AM s in source Blood by data Automated count Hematocri 37.0 - % Low alert Nov 10 t [Volume 47.0 2016 8:32 CRITICAL AM Fraction] RESULTS of Blood RESU LTS CALLED TO: [facility] 0915 Tim[place] nolan maria e Hemoglobi 12.2 - g/dL Low alert Nov 10 n 16.2 2016 8:32 [Mass/vol CRITICAL AM ume] in RESULTS Blood RESU LTS CALLED TO: [facility] 11/10/16 0914 TimoTao maria e Lymphocyt 0.7 - 4.5 K/mm3 Low No Nov 10 es informati 2016 8:32 [#/volume on in AM ] in source Unspecifi data ed specimen by Automated count Lymphocyt 10 - 50.0 % Normal No Nov 10 es informati 2016 8:32 [#/volume on in AM ] in source Unspecifi data ed specimen by Automated count Erythrocy 27 - 31.2 pg Normal No Nov 10 te mean informati 2016 8:32 corpuscul on in AM ar source hemoglobi data n [Entitic mass] Erythrocy 31.8 - g/dl Normal No Nov 10 te mean 35.4 informati 2017 8:32 corpuscul on in AM ar source hemoglobi data n concentra tion [Mass/vol ume] by Automated count Erythrocy 82.2 - fl Normal No Nov 10 te mean 97.8 informati 2016 8:32 corpuscul on in AM ar volume source [Entitic data volume] by Automated count Monocytes 0.1 - 1.0 K/mm3 Normal No Nov 10 informati 2016 8:32 [#/volume on in AM ] in source Blood by data Automated count Monocytes 1.7 - 9.3 % High No Kevin 3 /100 informati 2017 8:32 leukocyte on in AM s in source Blood by data Automated count Platelet 7.4 - fl Low No Kevin 3 mean 10.4 informati 2017 8:32 volume on in AM [Entitic source volume] data in Blood by Automated count Platelets 142 - 424 K/mm3 Low No Kevin 3 informati 2017 8:32 [#/volume on in AM ] in source Blood data Erythrocy 4.2 - 5.4 M/mm3 Low No Kevin 3 amee informati 2017 8:32 [#/volume on in AM ] in source Amniotic data fluid Erythrocy 11.5 - % High No Kevin 3 te 17.5 informati 2017 8:32 distribut on in AM ion width source [Entitic data volume] by Automated count Leukocyte 4.8 - K/MM3 Low alert Kevin 3 s 10.8 NOTIFICAT 2017 8:32 [#/volume ION AM ] in RESULT Blood Differential panel, method unspecified - Observa Value Referen Units Interpr Notes Date tion ce etation Range Neutrophi 0 - 8 % Normal No Kevin 3 ls.band informati 2017 8:32 form/100 on in AM leukocyte source s in data Blood by Automated count Eosinophi 0 - 3 % High No Kevin 3 ls/100 informati 2016 8:32 leukocyte on in AM s in source Blood by data Manual count LYMPH 56 10 - 50 % High No Kevin 3 informa 2017 tion in 8:32 AM source data Monocytes 2 - 9 % High No Kevin 3 /100 informati 2016 8:32 leukocyte on in AM s in source Blood by data Automated count Platele MARKED No No No No Kevin 3 ts DECREAS informa informa informa informa 2017 [Presen E tion in tion in tion in tion in 8:32 AM ce] in source source source source Blood data data data data by Light microsc opy Neutrophi 42 - 76 % Low No Kevin 3 ls informati 2016 8:32 [#/volume on in AM ] in source Blood by data Automated count Cells No #CELLS No No Kevin 3 Counted informati informati informati 2016 8:32 Total [#] on in on in on in AM in Blood source source source data data data Gentamicin [Mass/volume] in Serum or Plasma --trough Observa Value Referen Units Interpr Notes Date tion ce etation Range COMMENTS TO HOTEL REGISTRATION CLERK: RANDOM Gentamici 0 - 2.0 ug/ml Normal No Kevin 2 n informati 2017 7:20 [Mass/vol on in AM ume] in source Serum or data Plasma --trough Basic metabolic panel in Blood Observa Value Referen Units Interpr Notes Date tion ce etation Range Urea 7 - 18 mg/dL Normal No Kevin 2 nitrogen informati 2017 7:20 [Mass/vol on in AM ume] in source Serum or data Plasma Calcium 8.5 - mg/dL Low No Kevin 2 [Mass/vol 10.1 informati 2017 7:20 ume] in on in AM Serum or source Plasma data Chloride 98 - 107 mmoL/L Normal No Kevin 2 [Moles/vo informati 2017 7:20 lume] in on in AM Serum or source Plasma data Carbon 21.0 - mmoL/L Normal No Kevin 2 dioxide, 32.0 informati 2017 7:20 total on in AM [Moles/vo source lume] in data Serum or Plasma Creatinin 0.55 - mg/dL No No Kevin 2 e 1.02 informati informati 2017 7:20 [Mass/vol on in on in AM ume] in source source Serum or data data Plasma Creatinin 50 - 200 ML/MIN No No Kevin 2 e renal informati informati 2017 7:20 clearance on in on in AM source source predicted data data by Cockcroft -Gault formula Estimated 59- ML/MIN No REFERENCE Kevin 2 informati RANGE: 2017 7:20 glomerula on in >60 AM r source ML/MIN/1. filtratio data 73 SQUARE n rate METERSIf (GF this patient is -A merican, then multiply theresult by 1.210. Glucose 74 - 106 mg/dL High No Kevin 2 [Mass/vol informati 2017 7:20 ume] in on in AM Serum or source Plasma data Potassium 3.5 - 5.1 mmoL/L Low No Kevin 2 informati 2017 7:20 [Moles/vo on in AM lume] in source Serum or data Plasma Sodium 136 - 145 mmoL/L Low No Kevin 2 [Moles/vo informati 2017 7:20 lume] in on in AM Serum or source Plasma data CBC W Auto Differential panel in Blood Observa Value Referen Units Interpr Notes Date tion ce etation Range Basophils 0 - 0.2 K/MM3 Normal No Kevin 2 informati 2016 7:20 [#/volume on in AM ] in source Blood by data Automated count Basophils 0.1 - 2.0 % High No Kevin 2 /100 informati 2016 7:20 leukocyte on in AM s in source Blood by data Automated count Eosinophi 0.0 - 0.4 K/mm3 Normal No Kevin 2 ls informati 2016 7:20 [#/volume on in AM ] in source Blood by data Automated count Eosinophi 0.1 - % Normal No Kevin 2 ls/100 12.0 informati 2016 7:20 leukocyte on in AM s in source Blood by data Automated count Granulocy 1.8 - 7.8 K/mm3 Low alert No Kevin 2 amee informati 2016 7:20 [#/volume on in AM ] in source Blood by data Automated count Granulocy 37.0 - % Low No Kevin 2 amee/100 80.0 informati 2016 7:20 leukocyte on in AM s in source Blood by data Automated count Hematocri 37.0 - % Low alert Nov 09 t [Volume 47.0 2016 7:20 CRITICAL AM Fraction] RESULTS of Blood RESU LTS CALLED TO: [facility] [place] 11/09/16 0740 Timo,Rich maria e Hemoglobi 12.2 - g/dL Low alert Nov 09 n 16.2 2016 7:20 [Mass/vol CRITICAL AM ume] in RESULTS Blood RESU LTS CALLED TO: Charlene 11/09/16 0740 Timo,Rich maria e Lymphocyt 0.7 - 4.5 K/mm3 Low No Nov 2 es informati 2016 7:20 [#/volume on in AM ] in source Unspecifi data ed specimen by Automated count Lymphocyt 10 - 50.0 % High No Nov 2 es informati 2016 7:20 [#/volume on in AM ] in source Unspecifi data ed specimen by Automated count Erythrocy 27 - 31.2 pg High No Nov 2 te mean informati 2017 7:20 corpuscul on in AM ar source hemoglobi data n [Entitic mass] Erythrocy 31.8 - g/dl Normal No Nov 2 te mean 35.4 informati 2017 7:20 corpuscul on in AM ar source hemoglobi data n concentra tion [Mass/vol ume] by Automated count Erythrocy 82.2 - fl Normal No Nov 2 te mean 97.8 informati 2016 7:20 corpuscul on in AM ar volume source [Entitic data volume] by Automated count Monocytes 0.1 - 1.0 K/mm3 Low No Nov 2 informati 2016 7:20 [#/volume on in AM ] in source Blood by data Automated count Monocytes 1.7 - 9.3 % Normal No Nov 2 /100 informati 2016 7:20 leukocyte on in AM s in source Blood by data Automated count Platelet 7.4 - fl Low No Nov 2 mean 10.4 informati 2017 7:20 volume on in AM [Entitic source volume] data in Blood by Automated count Platelets 142 - 424 K/mm3 Low No Nov 2 informati 2017 7:20 [#/volume on in AM ] in source Blood data Erythrocy 4.2 - 5.4 M/mm3 Low No Nov 2 amee informati 2017 7:20 [#/volume on in AM ] in source Amniotic data fluid Erythrocy 11.5 - % High No Nov 2 te 17.5 informati 2017 7:20 distribut on in AM ion width source [Entitic data volume] by Automated count Leukocyte 4.8 - K/MM3 Low alert Nov 2 s 10.8 NOTIFICAT 2016 7:20 [#/volume ION AM ] in RESULT Blood Gentamicin [Mass/volume] in Serum or Plasma --trough Observa Value Referen Units Interpr Notes Date tion ce etation Range COMMENTS TO HOTEL REGISTRATION CLERK: RANDOM Gentamici 0 - 2.0 ug/ml High Nov 09 n alert NOTIFICAT 2016 [Mass/vol ION 12:09 AM ume] in RESULT Serum or Plasma --trough CBC W Auto Differential panel in Blood Observa Value Referen Units Interpr Notes Date tion ce etation Range Basophils 0 - 0.2 K/MM3 Normal No Nov 1 informati 2016 [#/volume on in 10:20 AM ] in source Blood by data Automated count Basophils 0.1 - 2.0 % Normal No Kevin 1 /100 informati 2016 leukocyte on in 10:20 AM s in source Blood by data Automated count Eosinophi 0.0 - 0.4 K/mm3 Normal No Kevin 1 ls informati 2016 [#/volume on in 10:20 AM ] in source Blood by data Automated count Eosinophi 0.1 - % Normal No Kevin 1 ls/100 12.0 informati 2016 leukocyte on in 10:20 AM s in source Blood by data Automated count Granulocy 1.8 - 7.8 K/mm3 Low alert No Kevin 1 amee informati 2016 [#/volume on in 10:20 AM ] in source Blood by data Automated count Granulocy 37.0 - % Normal No Kevin 1 amee/100 80.0 informati 2016 leukocyte on in 10:20 AM s in source Blood by data Automated count Hematocri 37.0 - % Low No Nov 08 t [Volume 47.0 informati 2016 on in 10:20 AM Fraction] source of Blood data Hemoglobi 12.2 - g/dL Low alert Nov 08 n 16.2 2017 [Mass/vol CRITICAL 10:20 AM ume] in RESULTS Blood RESU LTS CALLED TO: [email or web address] 11/08/16 1159 Lakshmi Garner e Lymphocyt 0.7 - 4.5 K/mm3 Low No Kevin 1 es informati 2016 [#/volume on in 10:20 AM ] in source Unspecifi data ed specimen by Automated count Lymphocyt 10 - 50.0 % Normal No Nov 08 es informati 2016 [#/volume on in 10:20 AM ] in source Unspecifi data ed specimen by Automated count Erythrocy 27 - 31.2 pg Normal No Nov 08 te mean informati 2016 corpuscul on in 10:20 AM ar source hemoglobi data n [Entitic mass] Erythrocy 31.8 - g/dl Normal No Nov 08 te mean 35.4 informati 2016 corpuscul on in 10:20 AM ar source hemoglobi data n concentra tion [Mass/vol ume] by Automated count Erythrocy 82.2 - fl Normal No Nov 08 te mean 97.8 informati 2016 corpuscul on in 10:20 AM ar volume source [Entitic data volume] by Automated count Monocytes 0.1 - 1.0 K/mm3 Low No Kevin 1 informati 2016 [#/volume on in 10:20 AM ] in source Blood by data Automated count Monocytes 1.7 - 9.3 % Normal No Kevin 1 /100 inform2016 leukocyte on in 10:20 AM s in source Blood by data Automated count Platelet 7.4 - fl Low No Kevin 1 mean 10.4 informati 2016 volume on in 10:20 AM [Entitic source volume] data in Blood by Automated count Platelets 142 - 424 K/mm3 Low No Kevin 1 inform2016 [#/volume on in 10:20 AM ] in source Blood data Erythrocy 4.2 - 5.4 M/mm3 Low No Kevin 1 amee inform2016 [#/volume on in 10:20 AM ] in source Amniotic data fluid Erythrocy 11.5 - % High No Kevin 1 te 17.5 informati 2016 distribut on in 10:20 AM ion width source [Entitic data volume] by Automated count Leukocyte 4.8 - K/MM3 Low alert Kevin 1 s 10.8 NOTIFICAT 2017 [#/volume ION 10:20 AM ] in RESULT Blood Differential panel, method unspecified - Observa Value Referen Units Interpr Notes Date tion ce etation Range Anisocy 1+ No No No No Kevin 1 tosis informa informa informa informa 2016 [Presen tion in tion in tion in tion in 10:20 ce] in source source source source AM Blood data data data data Eosinophi 0 - 3 % Normal No Kevin 1 ls/100 informati 2017 leukocyte on in 10:20 AM s in source Blood by data Manual count LYMPH 45 10 - 50 % Normal No Kevin 1 informa 2017 tion in 10:20 source AM data Monocytes 2 - 9 % High No Kevin 1 /100 informati 2016 leukocyte on in 10:20 AM s in source Blood by data Automated count Platele MOD No No No No Kevin 1 ts INCREAS informa informa informa informa 2017 [Presen E tion in tion in tion in tion in 10:20 ce] in source source source source AM Blood data data data data by Light microsc opy Neutrophi 42 - 76 % Normal No Kevin 1 ls informati 2016 [#/volume on in 10:20 AM ] in source Blood by data Automated count Cells No #CELLS No No Kevin 1 Counted informati informati informati 2017 Total [#] on in on in on in 10:20 AM in Blood source source source data data data Basic metabolic panel in Blood Observa Value Referen Units Interpr Notes Date tion ce etation Range Urea 7 - 18 mg/dL Normal No Kevin 1 nitrogen informati 2016 [Mass/vol on in 10:20 AM ume] in source Serum or data Plasma Calcium 8.5 - mg/dL Low No Nov 08 [Mass/vol 10.1 informati 2016 ume] in on in 10:20 AM Serum or source Plasma data Chloride 98 - 107 mmoL/L Normal No Kevin 1 [Moles/vo informati 2016 lume] in on in 10:20 AM Serum or source Plasma data Carbon 21.0 - mmoL/L Normal No Kevin dioxide, 32.0 informati 2017 total on in 10:20 AM [Moles/vo source lume] in data Serum or Plasma Creatinin 0.55 - mg/dL Normal No Kevin 1 e 1.02 informati 2016 [Mass/vol on in 10:20 AM ume] in source Serum or data Plasma Creatinin 50 - 200 ML/MIN Normal No Kevin 1 e renal informati 2017 clearance on in 10:20 AM source predicted data by Cockcroft -Gault formula Estimated 59- ML/MIN No REFERENCE Kevin 1 informati RANGE: 2017 glomerula on in >60 10:20 AM r source ML/MIN/1. filtratio data 73 SQUARE n rate METERSIf (GF this patient is -A merican, then multiply theresult by 1.210. Glucose 74 - 106 mg/dL High No Kevin 1 [Mass/vol informati 2017 ume] in on in 10:20 AM Serum or source Plasma data Potassium 3.5 - 5.1 mmoL/L Low No Kevin 1 informati 2017 [Moles/vo on in 10:20 AM lume] in source Serum or data Plasma Sodium 136 - 145 mmoL/L Low No Kevin 1 [Moles/vo informati 2017 lume] in on in 10:20 AM Serum or source Plasma data CBC W Auto Differential panel in Blood Observa Value Referen Units Interpr Notes Date tion ce etation Range COMMENTS TO HOTEL REGISTRATION CLERK: RECHECK FROM PREVIOUS RESULTS SPECIMEN COMMENT: ENTER NEW RESULTS Basophils 0 - 0.2 K/MM3 Normal No November 07 informati 2016 9:50 [#/volume on in AM ] in source Blood by data Automated count Basophils 0.1 - 2.0 % Normal No November 07 informati 2016 9:50 leukocyte on in AM s in source Blood by data Automated count Eosinophi 0.0 - 0.4 K/mm3 Normal No November 07 ls informati 2016 9:50 [#/volume on in AM ] in source Blood by data Automated count Eosinophi 0.1 - % Normal No November 07 ls/100 12.0 informati 2016 9:50 leukocyte on in AM s in source Blood by data Automated count Granulocy 1.8 - 7.8 K/mm3 Normal No November 07 amee informati 2016 9:50 [#/volume on in AM ] in source Blood by data Automated count Granulocy 37.0 - % High No November 07 amee/100 80.0 informati 2016 9:50 leukocyte on in AM s in source Blood by data Automated count Hematocri 37.0 - % Low No November 07 t [Volume 47.0 informati 2016 9:50 on in AM Fraction] source of Blood data Hemoglobi 12.2 - g/dL Low No November 07 n 16.2 informati 2016 9:50 [Mass/vol on in AM ume] in source Blood data Lymphocyt 0.7 - 4.5 K/mm3 Low No November 07 es informati 2016 9:50 [#/volume on in AM ] in source Unspecifi data ed specimen by Automated count Lymphocyt 10 - 50.0 % Low November 07 es informati 2016 9:50 [#/volume on in AM ] in source Unspecifi data ed specimen by Automated count Erythrocy 27 - 31.2 pg High No November 07 te mean informati 2016 9:50 corpuscul on in AM ar source hemoglobi data n [Entitic mass] Erythrocy 31.8 - g/dl Normal No November 07 te mean 35.4 informati 2016 9:50 corpuscul on in AM ar source hemoglobi data n concentra tion [Mass/vol ume] by Automated count Erythrocy 82.2 - fl Normal November 07 te mean 97.8 informati 2016 9:50 corpuscul on in AM ar volume source [Entitic data volume] by Automated count Monocytes 0.1 - 1.0 K/mm3 Low No November 07 informati 2016 9:50 [#/volume on in AM ] in source Blood by data Automated count Monocytes 1.7 - 9.3 % Low No November 07 / informati 2016 9:50 leukocyte on in AM s in source Blood by data Automated count Platelet 7.4 - fl Low No November 07 mean 10.4 informati 2016 9:50 volume on in AM [Entitic source volume] data in Blood by Automated count Platelets 142 - 424 K/mm3 Low No November 07 informati 2016 9:50 [#/volume on in AM ] in source Blood data Erythrocy 4.2 - 5.4 M/mm3 Low No November 07 amee informati 2016 9:50 [#/volume on in AM ] in source Amniotic data fluid Erythrocy 11.5 - % High No November 07 te 17.5 informati 2016 9:50 distribut on in AM ion width source [Entitic data volume] by Automated count Leukocyte 4.8 - K/MM3 Normal No November 07 s 10.8 informati 2016 9:50 [#/volume on in AM ] in source Blood data Basic metabolic panel in Blood Observa Value Referen Units Interpr Notes Date tion ce etation Range Urea 7 - 18 mg/dL No November 07 nitrogen informati informati 2017 6:15 [Mass/vol on in on in AM ume] in source source Serum or data data Plasma Calcium 8.5 - mg/dL Low No November 07 [Mass/vol 10.1 informati 2017 6:15 ume] in on in AM Serum or source Plasma data Chloride 98 - 107 mmoL/L Normal No November 07 [Moles/vo informati 2016 6:15 lume] in on in AM Serum or source Plasma data Carbon 21.0 - mmoL/L Normal No November 07 dioxide, 32.0 informati 2016 6:15 total on in AM [Moles/vo source lume] in data Serum or Plasma Creatinin 0.55 - mg/dL No No November 07 e 1.02 informati informati 2016 6:15 [Mass/vol on in on in AM ume] in source source Serum or data data Plasma Creatinin 50 - 200 ML/MIN No No November 07 e renal informati informati 2016 6:15 clearance on in on in AM source source predicted data data by Cockcroft -Gault formula Estimated 59- ML/MIN No REFERENCE November 07 informati RANGE: 2017 6:15 glomerula on in >60 AM r source ML/MIN/1. filtratio data 73 SQUARE n rate METERSIf (GF this patient is -A merican, then multiply theresult by 1.210. Glucose 74 - 106 mg/dL Normal No November 07 [Mass/vol informati 2017 6:15 ume] in on in AM Serum or source Plasma data Potassium 3.5 - 5.1 mmoL/L Low No November 07 informati 2017 6:15 [Moles/vo on in AM lume] in source Serum or data Plasma Sodium 136 - 145 mmoL/L Normal No November 07 [Moles/vo informati 2017 6:15 lume] in on in AM Serum or source Plasma data CBC W Auto Differential panel in Blood Observa Value Referen Units Interpr Notes Date tion ce etation Range Basophils 0 - 0.2 K/MM3 Normal No November 07 informati 2016 6:15 [#/volume on in AM ] in source Blood by data Automated count Basophils 0.1 - 2.0 % Normal No November 07 informati 2017 6:15 leukocyte on in AM s in source Blood by data Automated count Eosinophi 0.0 - 0.4 K/mm3 Normal No November 07 ls informati 2017 6:15 [#/volume on in AM ] in source Blood by data Automated count Eosinophi 0.1 - % Normal No November 07 ls/100 12.0 informati 2017 6:15 leukocyte on in AM s in source Blood by data Automated count Granulocy 1.8 - 7.8 K/mm3 Normal No November 07 amee informati 2017 6:15 [#/volume on in AM ] in source Blood by data Automated count Granulocy 37.0 - % High No November 07 amee/100 80.0 informati 2017 6:15 leukocyte on in AM s in source Blood by data Automated count Hematocri 37.0 - % Low alert November 07 t [Volume 47.0 2016 6:15 CRITICAL AM Fraction] RESULTS of Blood RESU LTS CALLED TO: [facility] 11/07/16 0641 Lakshmi Garner e Hemoglobi 12.2 - g/dL Low alert November 07 n 16.2 2016 6:15 [Mass/vol CRITICAL AM ume] in RESULTS Blood RESU LTS CALLED TO: [facility] 11/07/16 0640 Lakshmi Garner Lymphocyt 0.7 - 4.5 K/mm3 Low No November 07 es informati 2017 6:15 [#/volume on in AM ] in source Unspecifi data ed specimen by Automated count Lymphocyt 10 - 50.0 % Low No November 07 es informati 2017 6:15 [#/volume on in AM ] in source Unspecifi data ed specimen by Automated count Erythrocy 27 - 31.2 pg High No November 07 te mean informati 2016 6:15 corpuscul on in AM ar source hemoglobi data n [Entitic mass] Erythrocy 31.8 - g/dl Normal No November 07 te mean 35.4 informati 2016 6:15 corpuscul on in AM ar source hemoglobi data n concentra tion [Mass/vol ume] by Automated count Erythrocy 82.2 - fl Normal No November 07 te mean 97.8 informati 2016 6:15 corpuscul on in AM ar volume source [Entitic data volume] by Automated count Monocytes 0.1 - 1.0 K/mm3 Normal No November 07 informati 2016 6:15 [#/volume on in AM ] in source Blood by data Automated count Monocytes 1.7 - 9.3 % Low No November 07 /100 informati 2017 6:15 leukocyte on in AM s in source Blood by data Automated count Platelet 7.4 - fl Low No November 07 mean 10.4 informati 2017 6:15 volume on in AM [Entitic source volume] data in Blood by Automated count Platelets 142 - 424 K/mm3 Low No November 07 informati 2016 6:15 [#/volume on in AM ] in source Blood data Erythrocy 4.2 - 5.4 M/mm3 Low No November 07 amee informati 2017 6:15 [#/volume on in AM ] in source Amniotic data fluid Erythrocy 11.5 - % High No November 07 te 17.5 informati 2016 6:15 distribut on in AM ion width source [Entitic data volume] by Automated count Leukocyte 4.8 - K/MM3 No No November 07 s 10.8 informati informati 2016 6:15 [#/volume on in on in AM ] in source source Blood data data Lactate [Moles/volume] in Serum or Plasma Observa Value Referen Units Interpr Notes Date tion ce etation Range Lactate 0.4 - 2.0 MMOL/L Normal No November 06 [Moles/vo inform2016 lume] in on in 11:30 PM Serum or source Plasma data CBC W Auto Differential panel in Blood Observa Value Referen Units Interpr Notes Date tion ce etation Range Basophils 0 - 0.2 K/MM3 Normal No November 06 informati 2016 7:20 [#/volume on in PM ] in source Blood by data Automated count Basophils 0.1 - 2.0 % Normal No November 06 / informati 2016 7:20 leukocyte on in PM s in source Blood by data Automated count Eosinophi 0.0 - 0.4 K/mm3 Normal No November 06 ls informati 2016 7:20 [#/volume on in PM ] in source Blood by data Automated count Eosinophi 0.1 - % Normal No November 06 ls/100 12.0 informati 2016 7:20 leukocyte on in PM s in source Blood by data Automated count Granulocy 1.8 - 7.8 K/mm3 High No November 06 amee ati 2016 7:20 [#/volume on in PM ] in source Blood by data Automated count Granulocy 37.0 - % High No November 06 amee/100 80.0 informati 2016 7:20 leukocyte on in PM s in source Blood by data Automated count Hematocri 37.0 - % Low No November 06 t [Volume 47.0 informati 2016 7:20 on in PM Fraction] source of Blood data Hemoglobi 12.2 - g/dL Low No November 06 n 16.2 informati 2016 7:20 [Mass/vol on in PM ume] in source Blood data Lymphocyt 0.7 - 4.5 K/mm3 Normal No November 06 es informati 2016 7:20 [#/volume on in PM ] in source Unspecifi data ed specimen by Automated count Lymphocyt 10 - 50.0 % Low No November 06 es informati 2016 7:20 [#/volume on in PM ] in source Unspecifi data ed specimen by Automated count Erythrocy 27 - 31.2 pg Normal No November 06 te mean inform2016 7:20 corpuscul on in PM ar source hemoglobi data n [Entitic mass] Erythrocy 31.8 - g/dl Normal No November 06 te mean 35.4 inform2016 7:20 corpuscul on in PM ar source hemoglobi data n concentra tion [Mass/vol ume] by Automated count Erythrocy 82.2 - fl Normal November 06 te mean 97.8 informati 2016 7:20 corpuscul on in PM ar volume source [Entitic data volume] by Automated count Monocytes 0.1 - 1.0 K/mm3 Normal No November 06 informati 2016 7:20 [#/volume on in PM ] in source Blood by data Automated count Monocytes 1.7 - 9.3 % Low No November 06 /100 informati 2016 7:20 leukocyte on in PM s in source Blood by data Automated count Platelet 7.4 - fl Low No November 06 mean 10.4 informati 2016 7:20 volume on in PM [Entitic source volume] data in Blood by Automated count Platelets 142 - 424 K/mm3 No November 06 informati informati 2016 7:20 [#/volume on in on in PM ] in source source Blood data data Erythrocy 4.2 - 5.4 M/mm3 Low No November 06 amee ati 2016 7:20 [#/volume on in PM ] in source Amniotic data fluid Erythrocy 11.5 - % High No November 06 te 17.5 informati 2016 7:20 distribut on in PM ion width source [Entitic data volume] by Automated count Leukocyte 4.8 - K/MM3 High No November 06 s 10.8 informati 2016 7:20 [#/volume on in PM ] in source Blood data Differential panel, method unspecified - Observa Value Referen Units Interpr Notes Date tion ce etation Range Anisocy 2+ No No No No November 06 tosis informa informa informa informa 2016 [Presen tion in tion in tion in tion in 7:20 PM ce] in source source source source Blood data data data data Hypochr 3+ No No No No November 06 omia informa informa informa informa 2016 [Presen tion in tion in tion in tion in 7:20 PM ce] in source source source source Blood data data data data Neutrophi No No No No November 06 ls.hypers informati informati informati informati 2016 7:20 egmented on in on in on in on in PM [#/volume source source source source ] in data data data data Blood LYMPH 9 10 - 50 % Low No November 06 informa 2016 tion in 7:20 PM source data Monocytes 2 - 9 % Low No November 06 /100 informati 2016 7:20 leukocyte on in PM s in source Blood by data Automated count Platele NORMAL No No No No November 06 ts informa informa informa informa 2016 [Presen tion in tion in tion in tion in 7:20 PM ce] in source source source source Blood data data data data by Light microsc opy Poikilo 2+ No No No No November 06 cytosis informa informa informa informa 2016 tion in tion in tion in tion in 7:20 PM [Presen source source source source ce] in data data data data Blood by Light microsc opy Neutrophi 42 - 76 % High No November 06 ls informati 2016 7:20 [#/volume on in PM ] in source Blood by data Automated count Cells No #CELLS No No November 06 Counted informati informati informati 2016 7:20 Total [#] on in on in on in PM in Blood source source source data data data Comprehensive metabolic 2000 panel in Serum or Plasma Observa Value Referen Units Interpr Notes Date tion ce etation Range Albumin/G 1.1 - 1.8 No Low No November 06 lobulin informati informati 2016 7:20 [Mass on in on in PM ratio] in source source Serum or data data Plasma Albumin 3.4 - 5.0 gm/dL Low No November 06 [Mass/vol informati 2016 7:20 ume] in on in PM Serum or source Plasma data Alkaline 46 - 116 U/L High No November 06 phosphata informati 2016 7:20 se on in PM [Enzymati source c data activity/ volume] in Serum or Plasma Bilirubin 0.2 - 1.0 mg/dL Normal No November 06 .total informati 2016 7:20 [Mass/vol on in PM ume] in source Serum or data Plasma Urea 7 - 18 mg/dL Normal No November 06 nitrogen informati 2016 7:20 [Mass/vol on in PM ume] in source Serum or data Plasma Calcium 8.5 - mg/dL Low No November 06 [Mass/vol 10.1 informati 2016 7:20 ume] in on in PM Serum or source Plasma data Chloride 98 - 107 mmoL/L Normal No November 06 [Moles/vo informati 2016 7:20 lume] in on in PM Serum or source Plasma data Carbon 21.0 - mmoL/L Normal No November 06 dioxide, 32.0 informati 2016 7:20 total on in PM [Moles/vo source lume] in data Serum or Plasma Creatinin 0.55 - mg/dL Normal No November 06 e 1.02 informati 2016 7:20 [Mass/vol on in PM ume] in source Serum or data Plasma Creatinin 50 - 200 ML/MIN Normal No November 06 e renal informati 2016 7:20 clearance on in PM source predicted data by Cockcroft -Gault formula Estimated 59- ML/MIN No REFERENCE November 06 informati RANGE: 2017 7:20 glomerula on in >60 PM r source ML/MIN/1. filtratio data 73 SQUARE n rate METERSIf (GF this patient is -A merican, then multiply theresult by 1.210. Globulin 1.3 - 3.2 gm/dL Normal No November 06 [Mass/vol informati 2016 7:20 ume] in on in PM Serum source data Glucose 74 - 106 mg/dL High No November 06 [Mass/vol informati 2016 7:20 ume] in on in PM Serum or source Plasma data Potassium 3.5 - 5.1 mmoL/L Low No November 06 informati 2016 7:20 [Moles/vo on in PM lume] in source Serum or data Plasma Sodium 136 - 145 mmoL/L Normal No November 06 [Moles/vo informati 2016 7:20 lume] in on in PM Serum or source Plasma data Aspartate 15 - 37 U/L Normal No November 06 informati 2016 7:20 aminotran on in PM sferase source [Enzymati data c activity/ volume] in Serum or Plasma Alanine 12 - 78 U/L Normal No November 06 aminotran informati 2016 7:20 sferase on in PM [Enzymati source c data activity/ volume] in Serum or Plasma Protein 6.4 - 8.2 gm/dL Low No November 06 [Mass/vol informati 2016 7:20 ume] in on in PM Serum or source Plasma data Lactate [Moles/volume] in Blood Observa Value Referen Units Interpr Notes Date tion ce etation Range Lactate 0.4 - 2.0 mmol/L High An November 06 [Moles/vo elevated 2016 7:20 lume] in Lactic PM Blood Acid is suggestiv e of sepsis and shouldbe repeated within 6 hours of initial testing.
--- OUTSIDE RECORDS SUMMARY | 2017-03-24 00:03 | External Medical Summary Rpt ---
[...] in Arterial RESU blood LTS CALLED TO: [facility] 01/28/17 0915 Pedro Pablo on,Suzy pH of 7.35 - MMOL/L High Jan 28 Arterial 7.45 alert 2016 9:05 blood CRITICAL AM RESULTS RESU LTS CALLED TO: [facility] 01/28/17 0915 Pedro Pablo on,Suzy Oxygen 80 [...] data A+B [place] [Presen 370 ce] in [address], by [facility] [place] ssay [id number] Directo r: Loyd Jeong ti PhD, Phone: [phone] Basic metabolic panel in Blood Observa [...] 1.7 - 9.3 % Normal No Kevin 9 /100 informati 2017 6:25 leukocyte on [...] source source source 17 data data data [id number] prepara RELEASE tion D [Type] Whitney Cadet POSITIV E Blood product special preparation [Type] Observa Value Referen Units Interpr Notes Date tion ce etation Range Blood BLOOD No No No BLOOD Kevin 6 product UNIT informa informa informa UNIT # 2017 RELEASE tion in tion in tion in : [id number] 10:58 special source source source 17 AM data data data [id number] prepara RELEASE tion D [Type] [place] willinghamJose [...] Date tion ce etation Range COMMENTS TO DIRECTOR OF BROADCAST: DO NOT NEED TO CALL PHARMACIST FLARER WITH LEVEL DATE OF LAST DOSE: 11/12/16 TIME OF LAST DOSE: 0630 Tobramyci No ug/mL No No Nov 12 n informati informati informati 2017 7:36 [Mass/vol on in on in on in PM ume] in source source source Serum or data data data Plasma Tobramycin [Mass/volume] in Serum or Plasma Observa Value Referen Units Interpr Notes Date tion ce etation Range COMMENTS TO DIRECTOR OF BROADCAST: DO NOT NEED TO CALL PHARMACIST FLARER WITH LEVEL DATE OF LAST DOSE: 11/12/16 [...] RESULTS of Blood RESU LTS CALLED TO: [facility] 0915 TimoTao nolan maria e Hemoglobi 12.2 - g/dL Low alert Nov 10 n 16.2 2016 8:32 [Mass/vol CRITICAL AM ume] in RESULTS Blood RESU LTS CALLED TO: [facility] 11/10/16 0914 TimoTao maria e Lymphocyt 0.7 [...] Date tion ce etation Range COMMENTS TO DIRECTOR OF BROADCAST: RANDOM Gentamici 0 - 2.0 ug/ml Normal [...] RESULTS of Blood RESU LTS CALLED TO: [facility] 11/09/16 0740 Timo,Rich maria e Hemoglobi 12.2 [...] Date tion ce etation Range COMMENTS TO DIRECTOR OF BROADCAST: RANDOM Gentamici 0 - 2.0 ug/ml High [...] Date tion ce etation Range COMMENTS TO DIRECTOR OF BROADCAST: RECHECK FROM PREVIOUS RESULTS SPECIMEN COMMENT: ENTER [...] RESULTS of Blood RESU LTS CALLED TO: [facility] 11/07/16 0641 Lakshmi Garner e Hemoglobi 12.2 - g/dL Low alert November 07 n 16.2 2016 6:15 [Mass/vol CRITICAL AM ume] in RESULTS Blood RESU LTS CALLED TO: [facility] 11/07/16 0640 Lakshmi Garner Lymphocyt 0.7 - [...]
== END ==
LOC: ER 22:03
DX: L08.89 Other specified local infections of the skin and subcutaneous tissue (principal)

== ENCOUNTER 2017-04-22 11:30 | Outpatient (CLI) | payer MEDICARE | END 2017-04-22 12:30 | disposition home or self-care (01) | LOC: COP 11:30 | DX: C83.30 Diffuse large B-cell lymphoma, unspecified site (principal); Z45.2 Encounter for adjustment and management of vascular access device; Z48.00 Encounter for change or removal of nonsurgical wound dressing | CPT/HCPCS: J1642 ==

== ENCOUNTER 2017-04-30 13:05 | Outpatient (CLI) | payer MEDICARE | END 2017-04-30 13:20 | disposition home or self-care (01) | LOC: COP 13:05 | DX: C83.30 Diffuse large B-cell lymphoma, unspecified site (principal); Z45.2 Encounter for adjustment and management of vascular access device; Z48.00 Encounter for change or removal of nonsurgical wound dressing | CPT/HCPCS: J1642 ==

== ENCOUNTER 2017-05-08 12:45 | Outpatient (CLI) | payer MEDICARE | END 2017-05-08 13:15 | disposition home or self-care (01) | LOC: COP 12:45 | DX: C83.30 Diffuse large B-cell lymphoma, unspecified site (principal); Z45.2 Encounter for adjustment and management of vascular access device; Z48.00 Encounter for change or removal of nonsurgical wound dressing | CPT/HCPCS: J1642 ==

== ENCOUNTER 2017-05-22 13:10 | Outpatient (CLI) | payer MEDICARE | END 2017-05-22 13:50 | disposition home or self-care (01) | LOC: COP 13:10 | DX: C83.30 Diffuse large B-cell lymphoma, unspecified site (principal); Z45.2 Encounter for adjustment and management of vascular access device; Z48.00 Encounter for change or removal of nonsurgical wound dressing | CPT/HCPCS: J1642 ==

== ENCOUNTER → 2017-05-27 | Outpatient (CLI) | payer MEDICARE ==
--- NOTE | 2017-05-27 17:01 | RADIOLOGY REPORT PS360 ---
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 An adequate history currently PROCEDURE: CHEST(2 VIEWS-NOT PORTABLE) COMPARISON PA and lateral chest 12/10/2016 12/03/[address] chest August 2016. FINDINGS: On this chest film is rotated leftward which slightly distorts the chest In addition there is more pronounced central perihilar stranding reflecting post radiation type appearance about both right and left marquis. Slightly denser appearance left marquis more so than previous in part is due to the leftward rotation on today's chest film. As well today's the higher contrast digital technique. Likely receiving interval ongoing follow-up CXR and possibly chest CT to evaluate response to therapy at site of treatment.. No interval CT since August then this would certainly be warranted given the gross abnormal initial appearance., To reevaluate. Lateral film shows areas of increased density extending posterior to the marquis. Difficult to exclude infiltrate but more likely post radiation scarring and retraction posterior to the hilar regions... The peripheral lung tripp otherwise appear clear. PICC line enters from the right arm with tip at SVC. . Heart normal size. Outside aortic knob. Anterior fusion lower C-spine evident. Ribs T-spine stable. No pleural effusion. No pneumothorax. IMPRESSION -----. Fibrotic stranding appearance right & left perihilar region... Although no history of such this radiographic Appearance most compatible with post radiation changes. (Likely performed treating the chest, mediastinal mass seen on prior August 2016 CT chest.) There is some increased density posterior to the hilar regions noted on today's lateral view. Difficult to exclude additional infiltrate but favor this is also more likely due to scarring. Comparison to interval chest films were or CT would be helpful -Presumed patient has received likely recent chest CTs to address response to therapySince initial abnormal chest CT August 2016 .. If not follow-up chest CT should be be considered
== END ==
LOC: RAD 16:19
DX: R05 Cough (principal)